=== PATIENT | female | born 1935 | race Caucasian/White ===

== ENCOUNTER → 2017-06-15 | Outpatient (CLI) | payer MEDICARE, OTHER ==
--- NOTE | 2017-06-15 17:28 | DIREP ---
PROCEDURE:XRAY SPINE LUMBAR 2-3 VWS COMPARISON:[facility] and Spiral CT, MR, MRI SPINE LUMBAR W/O, 05/07/2017, 03:09 PM. INDICATIONS:LUMBAR RADICULOPATHY M54.16 TECHNIQUE:AP, lateral, and coned down lateral views of the lumbar spine are provided. FINDINGS: ALIGNMENT:Anterolisthesis of L4 on L5 measuring 8 mm and L5 on S1 measuring 7 mm. VERTEBRAE:No compression fracture. Lower lumbar facet arthropathy. Endplate disc osteophytes most severe at L3-4, L4-5 and L5-S1.. DISK SPACES:Mild disc space narrowing L4-5. Moderate L5-S1 disc space narrowing. SPONDYLOLISTHESIS:As above. SACROILIAC JOINTS:Sacroiliac joint degenerative changes, right greater than left. OTHER:Dorsal column stimulator partially visualized extending superiorly beyond [id number], stimulator enters the spinal column dorsal to L1-2. CONCLUSION: 1. Severe multilevel lumbar spondylosis with anterolisthesis as above. 2. Dorsal column stimulator leads. Dictated by: Yuniel Bright M.D. on 06/15/2017 at 04:24 PM Read in [place]
--- NOTE | 2017-06-15 17:30 | DIREP ---
PROCEDURE:XRAY SPINE THORACIC 3 VWS COMPARISON:[facility] Sp[facility] CT, MR, MRI SPINE THORACIC W/O, 05/07/2017, 03:09 PM. INDICATIONS:THORACIC SPINE PAIN M54.6 TECHNIQUE:AP & lateral views of the thoracic spine are provided. FINDINGS: ALIGNMENT:No measurable listhesis. Accentuated thoracic kyphosis. VERTEBRAE:Multiple compression fractures. Multilevel endplate disc osteophyte complexes. DISK SPACES:Moderate multilevel disc space narrowing. OTHER:Dorsal column stimulator lead with tip terminating at T8. Aortic atherosclerotic calcifications. CONCLUSION: 1. Moderate multilevel thoracic spondylosis with accentuated thoracic kyphosis. 2. No compression fracture or listhesis. 3. Dorsal column stimulator leads. Dictated by: Yuniel Bright M.D. on 06/15/2017 at 04:27 PM Read in [place]
== END | disposition home or self-care (01) ==
LOC: RAD 15:16
PROVIDERS: ATTEND Anesthesiology Pain Medicine
DX: M47.894 Other spondylosis, thoracic region (principal); M54.16 Radiculopathy, lumbar region; M47.896 Other spondylosis, lumbar region
CPT/HCPCS: 72070; 72100

== ENCOUNTER 2019-02-13 11:05 | Inpatient (IN) | payer MEDICARE, OTHER ==
[~2019-02-13] VITALS: Ht 170.2 cm; Wt 84.1 kg
--- NOTE | 2019-02-13 11:08 | NUR ---
ARRIVAL PT ARRIVED AMBULATORY TO ER 3 C/O LEFT ARM AND LEFT SIDE OF FACE "NUMBNESS AND TINGLING" AT 0930. SYMPTOMS HAVE RESOLVED NOW AND PATIENT DOES NOT HAVE ANY COMPLAINTS. NO ACUTE DISTRESS NOTED. PT TRANSFERS SELF TO AND FROM WHEELCHAIR AND TO STRETCHER, POSITIONS SELF ON STRETCHER INDEPENDENTLY AND WITHOUT DIFFICULTY. EDP NOTIFIED OF PT ARRIVAL.
--- NOTE | 2019-02-13 11:13 | ER.PDOC ---
General Chief Complaint: Requesting Medical Care Stated Complaint: NUMB ARM AND SIDE OF FACE Time seen by MD: 11:13 Source: patient Exam Limitations: no limitations History of Present Illness Initial Comments 83 year old female presents with chief complaint of "left-sided numbness of face, arm, and hand." The patient appears stable and not in acute distress. She reports that onset of left-sided numbness of arm and face suddenly began around 9:30 AM after she fed her birds and reached to open the door. She states that this episode lasted for several minutes and then mostly resolved; however she still feels slightly numb in her hand. She has never had this before. She tried to sit down with no relief of the numbness, and she did not take any medication after the episode. She had taken all of her regularly prescribed medications earlier that morning. She denies pain, slurring of speech, blurred vision. Additional symptoms were constipation and cough since yesterday. She has a PMHx of hypertension, depression, and arthritis. Timing/Duration: 1-3 hours Severity: mild New Weakness: LUE, (L) facial Usually: orientedx3 Allergies: Coded Allergies: No Known Allergies (Unverified , 02/13/19) Review of Systems Psychiatric/Neurological: see HPI All Other Systems: Reviewed and Negative Physical Exam General Appearance: alert, no distress HEENT: no apparent trauma, EOM's intact, no nystagmus Neuro/Psych: oriented x3, nml mood/affect Cranial Nerves: forehead involved (left-sided sensory intact) Peripheral Exam: sensation nml Neck: supple, non-tender Respiratory: breath sounds nml CVS: reg rate & rhythm, heart sounds nml Results/Orders Results/Orders Orders - MONE PRIETO MD Cbc With Auto Diff (02/13/19 11:20) Comprehensive Metabolic Panel (02/13/19 11:20) Creatine Kinase (02/13/19 11:20) PT (02/13/19 11:20) Xr Chest 1v (02/13/19 11:20) Partial Thromboplastin Time. (02/13/19 11:20) Troponin I (02/13/19 11:20) Urinalysis (02/13/19 11:20) Ekg-Routine (02/13/19 11:20) Ct Head Wo Contrast (02/13/19 11:20) Rt O2 Per Hour (02/13/19 11:20) Saline Lock (02/13/19 11:20) Vital Signs Date Time Temp Pulse Resp B/P (MAP) Pulse Ox O2 Delivery O2 Flow Rate FiO2 02/13/19 11:22 97.5 77 16 02/13/19 11:22 97.5 77 17 144/67 (92) 94 Room Air 02/13/19 11:08 97.5 77 17 94 Room Air Laboratory Tests Test 02/13/19 11:34 White Blood Count 9.1 10^3/uL (4.5-11.0) Red Blood Count 4.88 10^6/uL (4.00-5.20) Hemoglobin 14.5 g/dL (12.0-15.0) Hematocrit 44.5 % (36.0-46.0) Mean Corpuscular Volume 91.2 fL (78-100) Mean Corpuscular Hemoglobin 29.7 pg (26-34) Mean Corpuscular Hemoglobin Concent 32.6 g/dL (33-37) L Red Cell Distribution Width 15.0 % (11.5-14.5) H Platelet Count 390 10^3/uL (150-400) Mean Platelet Volume 10.4 fL (7.8-11.0) Neutrophils (%) (Auto) 62.9 % (41.0-85.0) Lymphocytes (%) (Auto) 22.3 % (24.0-44.0) L Monocytes (%) (Auto) 11.1 % (5.0-12.0) Neutrophils # (Auto) 5.7 10^3/uL (1.8-7.7) Lymphocytes # (Auto) 2.0 10^3/uL (1.0-4.8) Monocytes # (Auto) 1.0 10^3/uL (0.3-0.8) H Absolute Immature Granulocyte (auto 0.03 10^3 u/L (0-2) Immature Granulocytes % 0.30 % (0.00-0.50) Eosinophils % 2.9 % (0.0-5.0) Basophils % 0.5 % (0.0-0.2) H Basophils # 0.1 10^3/uL (0.0-0.1) Eosinophil Count 0.3 10^3/uL (0.0-0.2) H Prothrombin Time 10.5 SEC (9.4-11.5) Prothrombin Time INR (Non-Therap) 1.0 Activated Partial Thromboplast Time 23.6 SEC (24.67-30.72) Sodium Level 142 mmol/L (132-145) Potassium Level 3.6 mmol/L (3.6-5.2) Chloride Level 104.0 mmol/L (96-109) Carbon Dioxide Level 26.0 mmol/L (20.0-32) Anion Gap 15.6 Blood Urea Nitrogen 25 mg/dL (7-18) H Creatinine 1.06 mg/dL (0.59-1.40) Estimated GFR () 59.9 (>/=60) BUN/Creatinine Ratio 23.0 Glucose Level 135 mg/dL (70-110) H Calcium Level 9.9 mg/dL (8.4-10.5) Total Bilirubin 0.6 mg/dL (0.2-1.0) Aspartate Amino Transferase (AST) 18 U/L (0-35) Alanine Aminotransferase (ALT) 24 U/L (12-78) Alkaline Phosphatase 112 U/L (50-136) Total Creatine Kinase 165 U/L (26-192) Troponin I 0.26 ng/mL (0.00-0.05) H Total Protein 7.8 g/dL (6.4-8.2) Albumin 4.0 g/dL (3.4-5.0) Globulin 3.8 Progress Progress Elevated Troponin, Regan consulted at pt's request. Departure Time of Disposition: 12:50 Disposition: 09 ADMITTED INPATIENT Impression: Primary Impression: TIA (transient ischemic attack) Additional Impression: Elevated troponin I level Condition: Stable Referrals: TUCKER AN MD (PCP) PRIMARY CARE PROVIDER Duration or Time Spent with Pa: 25 Problem Qualifiers MONE PRIETO MD Feb 13, 2019 11:13
[2019-02-13 11:22] VITALS: BP 144/67
--- NOTE | 2019-02-13 11:34 | NUR ---
CT PATIENT TAKEN TO CT VIA WHEELCHAIR.
[2019-02-13 11:41] LABS: BASOPHIL # 0.1 10^3/uL (0.0-0.1); BASOPHIL % 0.5 % (0.0-0.2); EOSINOPHIL # 0.3 10^3/uL (0.0-0.2); EOSINOPHIL % 2.9 % (0.0-5.0); HEMOGLOBIN 14.5 g/dL (12.0-15.0); LYMPHOCYTES % 22.3 % (24.0-44.0); MEAN CELL HGB 29.7 pg (26-34); MEAN CELL HGB CONCENTRATION 32.6 g/dL (33-37); MEAN CORP VOLUME 91.2 fL (78-100); MEAN PLATELET VOLUME 10.4 fL (7.8-11.0); MONOCYTES % 11.1 % (5.0-12.0); NEUTROPHIL # 5.7 10^3/uL (1.8-7.7); NEUTROPHILS % 62.9 % (41.0-85.0); WHITE BLOOD CELL 9.1 10^3/uL (4.5-11.0)
--- NOTE | 2019-02-13 11:48 | DIREP ---
PROCEDURE:CT HEAD OR BRAIN W/O CONTRAST COMPARISON:None. INDICATIONS:Left sided numbness TECHNIQUE:CT images were created without intravenous contrast. The study was reviewed on abdominal, lung, liver and bone windows. FINDINGS: VENTRICLES:Small low-density lesions identified in the basal ganglia may represent small lacunar infarcts, or dilated perivascular spaces. Mild atrophy noted. Moderate white matter changes identified in the centrum semiovale and in the periventricular white matter. CEREBRUM:Normal cerebral morphology with appropriate armenta white matter differentiation. No evidence for unilateral hyperdense MCA sign is seen. No hyperdense venous sinus, effacement of sulci, loss of insular cortex or loss of lenticular nucleus is seen. No acute territorial infarct, bleed or mass lesion is seen. No acute or chronic epidural, subdural subarachnoid hemorrhage is seen. No edema, midline shift or increased intracranial pressure is seen. CEREBELLUM:A low-density lesion identified adjacent to the superior vermis on the right side, as seen on image number 12, series 3 measuring approximately 3 by 1 cm in size may represent a small arachnoid cyst. BRAINSTEM:Negative. BASAL CISTERNS:Negative. HEMORRHAGE:No MASS LESION:No ACUTE INFARCT:No SKULL:Normal. SINUSES:Normal. OTHER:None CONCLUSION:Suspect small lacunar infarcts in the basal ganglia bilaterally. Mild atrophy. Moderate to significant white matter changes in the centrum semiovale and in the periventricular/subcortical white matter which may be secondary to small vessel disease and/or aging. No acute infarct, bleed or mass lesion is seen. Dictated by: Blue Patel MD on 02/13/2019 at 11:43 AM
--- NOTE | 2019-02-13 11:50 | DIREP ---
PROCEDURE:CHEST 1 VIEW COMPARISON:[facility], CR, XRAY SPINE THORACIC 3 VWS, 06/15/2017, 03:37 PM. INDICATIONS:Numbness left side FINDINGS: LUNGS/PLEURA:No significant pulmonary parenchymal abnormalities. No effusions. VASCULATURE:Normal. Unremarkable pulmonary vasculature. CARDIAC:Normal. No cardiac silhouette abnormality or cardiomegaly. MEDIASTINUM:Normal. No visible mass or adenopathy. BONES:Normal. No fracture or visible bony lesion. OTHER:Dorsal column stimulator leads overlie the lower thoracic spinal canal. CONCLUSION:No acute cardiopulmonary abnormalities. Dictated by: Gama Gay M.D. on 02/13/2019 at 11:44 AM
[2019-02-13 12:03] LABS: CALCIUM 9.9 mg/dL (8.4-10.5)
[2019-02-13 12:30] VITALS: BP 151/69
[2019-02-13] MEDS ORDERED: PRAV20TA2 PO (12:36)
[2019-02-13] MEDS ORDERED: ALPR1TAB6 PO (12:36)
[2019-02-13] MEDS ORDERED: CARV3.12 PO (12:36)
[2019-02-13] MEDS ORDERED: HYDR1TAB15 PO (12:36)
[2019-02-13] MEDS ORDERED: TRAZ150T57 PO (12:36)
[2019-02-13] MEDS ORDERED: FURO20TA3 PO (12:36)
[2019-02-13] MEDS ORDERED: POTA10CA PO (12:36)
[2019-02-13] MEDS ORDERED: METO2.5T PO (12:36)
[2019-02-13] MEDS ORDERED: MIRT15TA4 PO (12:36)
--- NOTE | 2019-02-13 12:41 | NUR ---
ROSIO AVELAR HERE TO SEE PT AT THIS TIME.
[2019-02-13] MEDS ORDERED: HYDROCHLOROTHIAZIDE PO STA (12:57)
[2019-02-13] MEDS ORDERED: PLAVIX PO STA (12:57)
[2019-02-13] MEDS ORDERED: ASPIRIN EC PO STA (12:57)
[2019-02-13] MEDS ORDERED: TRANDATE IV PRN (13:00)
[2019-02-13 13:30] VITALS: BP 171/78
--- NOTE | 2019-02-13 13:35 | NUR ---
ROSIO AVELAR WILL LET ER KNOW IF PT WILL BE ADMITTED HERE.
--- NOTE | 2019-02-13 13:40 | PCM.EKG ---
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
--- NOTE | 2019-02-13 14:18 | DIREP ---
PROCEDURE:CT ANGIOGRAPHY HEAD COMPARISON:[facility], CT, CT HEAD BRAIN W/O CONTRAST, 02/13/2019, 11:27 AM. INDICATIONS:cva TECHNIQUE:After obtaining the patient's consent, CT images of the head were obtained with non-ionic contrast, and with multi-planar/3-D imaging to optimize visualization of vascular anatomy. FINDINGS: VASCULATURE:Somewhat suboptimal opacification. Diffuse vascular calcification, worst within the bilateral cavernous carotids. The vasculature is otherwise grossly normal. Near as well dilatation or abnormal vascular anatomy appreciated. VENTRICLES:Normal. CEREBRUM:Periventricular and deep white matter hypoattenuation are present, consistent with chronic small vessel ischemic change. No focal abnormality appreciated. CEREBELLUM:Stable low-density lesion adjacent to the superior right liver mass this is partially fat density may represent a lipoma. BRAINSTEM:Normal. BASAL CISTERNS:Normal. SKULL:Normal. OTHER:Negative. CONCLUSION:1. No acute vascular abnormality. 2. Diffuse atherosclerosis, worst within the cavernous carotids bilaterally. 3. Chronic small vessel ischemic change. 4. Hypoattenuating lesion within the right posterior fossa, with at least partial fat density, which may represent lipoma. Dictated by: Dinesh Avendaño M.D. on 02/13/2019 at 02:11 PM
--- NOTE | 2019-02-13 14:20 | NUR ---
ICU SPOKE TO MANNY CHURCHILL AT THIS TIME. ZHAO STATES IS WAITING TO HEAR FROM DR AVELAR REGARDING PT ADMISSION.
[2019-02-13 14:30] VITALS: BP 149/71
[2019-02-13 14:52] LABS: BILIRUBIN,URINE NEGATIVE (NEGATIVE); UROBILINOGEN,URINE NORMAL (NEGATIVE)
--- NOTE | 2019-02-13 15:08 | NUR ---
ROSIO AVELAR STATES AT THIS TIME THAT HE WILL ADMIT PT TO [facility].
[2019-02-13 15:24] LABS: APPEARANCE,URINE CLEAR (CLEAR); UA COLOR YELLOW (YELLOW)
[2019-02-13 15:30] VITALS: BP 154/73
--- NOTE | 2019-02-13 15:39 | HPH ---
ADMIT DATE: 02/13/2019 CHIEF COMPLAINT: Numbness, tingling left side of the face, arm, it started around 9:30 this morning, I had seen her around close to 12:30, which it has improved. HISTORY OF PRESENT ILLNESS: The patient is an 83-year-old white female who has underlying history of hypertension, hypertensive heart disease and relative bradycardia with nonspecific EKG changes and was seen by me in the office on 07/06/2017 and she had a normal myocardial perfusion scan with no ischemic substrate. At that time, had PVCs with incomplete right bundle branch block and small QRS complexes and she presented to the Emergency Room today with left arm numbness, tingling and slight weakness and she had dropped something on her head, which lasted for several minutes to almost 30-40 minutes and had numbness of the left side of the face, which improved, subsequently denied any chest pain and troponin was mildly elevated at 0.36 and CAT scan showed a small lacunar infarct in the basal ganglia region bilaterally and mild atrophy and microvascular ischemic substrate. Hence, admitted with a diagnosis of possible TIA versus stroke in evolution with initial blood pressure 180/110 and troponin elevation, rule out acute coronary event. ALLERGIES: None known. MEDICATIONS: She has been on Tylenol No. 3 one tablet 2-3 times a day on p.r.n. basis for chronic pain, potassium 10 mEq once a day, lisinopril/hydrochlorothiazide 20/12.5 mg 1 tablet daily, paroxetine 25 mg once a day, amlodipine 5 mg once a day, Protonix 40 mg once a day, ursodiol 300 mg 2 capsules daily. PAST MEDICAL HISTORY: Hypertension and hypertensive heart disease, bradycardia. Normal myocardial perfusion scan in 2018 and she has had back operation with []. SOCIAL HISTORY: []. She quit 40 years ago. No history of any ethanol abuse. FAMILY HISTORY: Her brothers have had stents and father had congestive heart failure and history of cancer in the family. PHYSICAL EXAMINATION: GENERAL: She is alert, awake, oriented. VITAL SIGNS: She weighs 200 pounds and 5 feet 7 inches and a BMI of 32. Initial blood pressure 180/100, subsequently it went down to 130/70, respirations 16-18, pulse rate is about 75. HEENT: Unremarkable. NECK: No JVD. No definite carotid bruits and she has got some weakness on a suggestion of right-sided seventh nerve paresis, but no other cranial nerve abnormalities noted. LUNGS: Clear. HEART: Sounds are normal. ABDOMEN: Soft, nontender, no organomegaly. EXTREMITIES: Distal pulses fairly well felt. NEUROLOGIC: No lateralizing motor deficit could be elicited. Motor function is normal bilaterally. IMAGING STUDIES: Her EKG: Regular sinus rhythm with small QRS complexes, nonspecific ST-T wave changes, R prime in V2 and small lacunar infarct [] both basal ganglia and noted with microvascular ischemic manifestations on CT of the abdomen without contrast. Rest of the labs were all acceptable. IMPRESSION: Transient ischemic attack versus stroke in evolution, labile, uncontrolled hypertension, troponin elevation, rule out coronary event. PLAN: At this time, admit the patient in ICU, was started on aspirin, Plavix, candidate for blood pressure, CTA of the head, echocardiogram, serial EKG, enzymes and further management depend on the clinical course. Yanique Spears MD DR: MANAS/tres JOB# [id number]
--- NOTE | 2019-02-13 16:01 | NUR ---
[facility] PT TO [facility] AT THIS TIME VIA WHEELCHAIR. REPORT TO ADDIS LLOYD RN.
[2019-02-13] MEDS ORDERED: ASPIRIN ONE (16:38)
[2019-02-13] MEDS ORDERED: HYDROCHLOROTHIAZIDE ONE (16:38)
[2019-02-13] MEDS ORDERED: PLAVIX ONE (16:39)
--- NOTE | 2019-02-13 16:45 | PCM.EKG ---
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
[2019-02-13] MEDS: NS 1000ML/KCL 20MEQ 1,000 ML IV SCH (16:47)
[2019-02-13] MEDS: DECADRON IV SCH ×2 (16:47→19:00)
[2019-02-13] MEDS ORDERED: URSO250T3 PO (18:44)
[2019-02-13] MEDS ORDERED: AMLO5TAB10 PO (18:44)
[2019-02-13] MEDS ORDERED: CYAN10002 IJ (18:44)
[2019-02-13] MEDS ORDERED: LISI1TAB20 PO (18:44)
[2019-02-13] MEDS ORDERED: PARO20TA4 PO (18:44)
[2019-02-13] MEDS ORDERED: PANT40TA3 PO (18:44)
[2019-02-13] MEDS ORDERED: CELE200C PO (18:44)
[2019-02-13 19:30] VITALS: BP 142/74
[2019-02-14] VITALS (7 sets, daily range): BP systolic 124–159; BP diastolic 57–81
[2019-02-14] MEDS: DECADRON IV SCH ×2 (00:14→09:45)
[2019-02-14] MEDS: NS 1000ML/KCL 20MEQ 1,000 ML IV SCH ×2 (02:20→04:44)
[2019-02-14] MEDS: NORVASC PO SCH (09:44)
[2019-02-14] MEDS: PROTONIX PO SCH (09:45)
[2019-02-14] MEDS: COZAAR PO SCH (09:45)
[2019-02-14 10:19] LABS: CALCIUM 10.1 mg/dL (8.4-10.5); CARBON DIOXIDE 23.1 mmol/L (20.0-32)
--- NOTE | 2019-02-14 10:45 | NUR ---
DISCHARGE PLAN CM VISITED WITH PATIENT AND DAUGHTER REGARDING D/C PLAN AND GOAL. PATIENT LIVES AT HOME WITH HER SPOUSE, SHE IS INDEPENDENT OF ADLS. SHE HAS A WALKER AND SHOWER CHAIR IN PLACE AND DENIES THE USE OF 02 IN THE HOME. HER PCP IS DR AN IN [place] WHO SHE SAW 1 MONTH AGO. CM ALSO PROVIDED PATIENT WITH A PCP LIST FOR [facility]. HER OUTSOLE CEMENTER MACHINE IS DR AVELAR AND SHE WILL F/U WITH HIM 1-2 WEEKS. SHE IS FINANCIALLY ABLE TO PAY FOR HER MEDICATIONS. CM EDUCATED PT ON OUT PATIENT SERVICES, HOME HEALTH, SWING BED AND CUSTODIAL FACILITY. PATIENT DENIES THE NEED FOR ANY OF THE SERVICES AT THIS TIME. REFUSAL OF SERVICES SIGNED AT THIS TIME. DISCHARGE GOAL IS FOR PATIENT TO D/C HOME WITH SPOUSE AND CONTINUE ROUTINE CARE THERE. CM WILL CONTINUE TO MONITOR NEEDS OF THE PATIENT UNTIL DISCHARGE.
--- NOTE | 2019-02-14 17:37 | DIREP ---
PROCEDURE:US DOPPLER CAROTID BILATERAL COMPARISON:None. INDICATIONS:tia, old stroke TECHNIQUE:Sonographic evaluation of carotid arteries was performed together with grayscale, color-flow, and spectral analysis. FINDINGS: PEAK FLOW VELOCITIES (cm/sec) RIGHT CCA: PROX:86.7 cm/s DIST:65.3 cm/s RIGHT ICA: PROX:155.5 cm/s MID:85.1 cm/s DIST:56.8 cm/s RIGHT ECA:83.0 cm/s RIGHT ICA/CCA:1.8 RIGHT VERTEBRAL:10.7 cm/s; Antegrade IMAGES:There is mild bifurcation plaque. LEFT CCA: PROX:89.3 cm/s DIST:61.0 cm/s LEFT ICA: PROX:46.2 cm/s MID:61.5 cm/s DIST:71.3 cm/s LEFT ECA:70.4 cm/s LEFT ICA/CCA:0.8 LEFT VERTEBRAL:54.8 cm/s; Antegrade IMAGES:There is mild bifurcation plaque. CONCLUSION:Elevated velocity in the proximal right internal carotid artery suggests a 50-69% stenosis. However, the ICA/CCA ratio is within the normal limits. If clinically indicated, consider CT angiogram or catheter directed angiogram Diameter Stenosis (%)ICA Peak Systolic Velocity (cm/s)ICA/CCA RatioNormal<125<2.0<50<125<[id number]>2-470 to near occlusion>230>4J Ultrasound Med 2005; 24:5753-3670 Dictated by: LUCY Physician on 02/14/2019 at 04:37 PM Read in [place] ac
[2019-02-14] MEDS: URSO PO SCH (21:00)
[2019-02-14] MEDS ORDERED: LIPITOR PO SCH (21:00)
--- NOTE | 2019-02-14 22:52 | PNH ---
DATE: 02/14/2019 SUBJECTIVE: The patient came in with TIA manifestations and numbness, tingling of the left hand and facial region with some altered sensorium, which is all improved and her CT scan of the head with CTA was done and she has small vessel microvascular ischemic substrate with diffuse atherosclerosis, worse within the cavernous carotids bilaterally and chronic small vessel ischemic manifestations and posterior fossa hypoattenuation, which may be a lipoma in the same region and she does not have any acute infarct and had mild troponin elevation, which may be related to nonspecific finding, does not show serial changes. EKG was normal. Her last Lexiscan myocardial perfusion scan within a year was normal and her blood pressure is stable, overall improved. Creatinine 1.1. We will do a Carotid Doppler and correlate with head CTA and physical therapy initiated, doing much better. Sensorium is clear. Plavix and aspirin on board and no more TIA manifestations. Continue same therapy and discharge planning by 02/15/2019. Yanique Spears MD DR: MANAS/tres JOB# [id number]
[2019-02-15 04:51] VITALS: BP 140/73
[2019-02-15 08:05] VITALS: BP 146/72
[2019-02-15] MEDS: COZAAR PO SCH (08:54)
[2019-02-15] MEDS: NORVASC PO SCH (08:55)
[2019-02-15] MEDS: PROTONIX PO SCH (08:55)
[2019-02-15] MEDS ORDERED: NORVASC PO SCH (09:00)
[2019-02-15] MEDS ORDERED: PAXIL PO SCH (09:00)
[2019-02-15] MEDS: URSO PO SCH (09:00)
[2019-02-15] MEDS ORDERED: PLAVIX PO SCH (09:00)
[2019-02-15] MEDS ORDERED: ASPIRIN EC PO SCH (09:00)
[2019-02-15] MEDS ORDERED: ATOR20TA PO (10:58)
[2019-02-15] MEDS ORDERED: LOSA50TA2 PO (10:58)
[2019-02-15] MEDS ORDERED: CLOP75TA PO (10:58)
[2019-02-15] MEDS ORDERED: ASPI-655 PO (10:58)
--- NOTE | 2019-02-15 13:31 | DSH ---
DATE OF DISCHARGE: 02/15/2019 FINAL DIAGNOSES: Transient ischemic attack, old stroke, labile hypertension, hypertensive heart disease, mild troponin elevation. Normal myocardial perfusion scan within a year. Bilateral carotid 50-69% plaque noted. Premature ventricular contractions, hypertensive heart disease. Please refer to my history and physical to the point of my impression. HOSPITAL COURSE: The patient is an 83-year-old white female who has underlying history of hypertension with hypertensive heart disease and she came with numbness and tingling in the left arm and face and this lasted all through the night, and she was having on-and-off worsening symptoms and possibility of stroke in evolution versus TIA was considered and at that time, she had an initial blood pressure of 180/110, which normalized later on, and she was given IV steroids. A CT scan of the head without contrast showed white matter ischemia, small lacunar infarct in both basal ganglia and subsequent head CTA showed diffuse atherosclerosis, worse within the cavernous carotid bilaterally and chronic small vessel ischemic manifestations and hypoattenuation in the right posterior fossa, may represent a lipoma. No acute vascular injury was documented and the patient was treated with aspirin and Plavix and blood pressure was controlled. She had a carotid ultrasound, which showed 50-69% plaque in both carotids. She has improved. Neurologically status is stable and she is being dismissed on medications in much improved status on aspirin 81 mg once a day, Lipitor 40 mg once a day, Plavix 75 mg once a day, losartan 50 mg once a day, amlodipine 5 mg once a day, vitamin B12 1000 mcg once a day, Protonix 40 mg once a day, paroxetine 20 mg once a day. She has a history of recurring gallstones and post-cholecystectomy and post-ERCP and common duct stone removal in the past and she is on ursodiol 250 mg 1 capsule twice a day, told not to take Celebrex, which may increase the chance of stroke and myocardial infarction in her especially when she has TIA and carotid plaque bilaterally. Lisinopril HCT was discontinued and she will see Dr. Danii Spears next week for transition of care and reconciliation of medications. Yanique Spears MD DR: MANAS/tres JOB# [id number]
--- NOTE | 2019-02-18 22:40 | PCM.EKG ---
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
--- NOTE | 2019-02-19 05:38 | ECHO ---
DATE OF SERVICE: INDICATIONS: An 83-year-old female with underlying history of hypertension and history of dyspnea and CHF, and assess for LV function. FINDINGS: Mitral valve shows mitral regurgitation with 2.8 meters velocity and reversal of E to A ratio and sclerosis of the aorta with normal aortic valve opening, tricuspid regurgitation with 2.8 meters velocity, with right ventricular systolic pressure of 42 mm. Right ventricle is normal, top normal right atrial size, top normal left atrial size. Left ventricle is normal in size, around 4.55 cm, end diastolic dimension of 2.76 cm, end systolic dimension top normal, posterior wall thickness with good overall contractility; ejection fraction of 51%, increased. Normal end-diastolic volume to 104 mL and IVC is dilated, mild IVC dilatation. No pericardial effusion. Hence, intact LV systolic function, mild top normal biatrial enlargement, mild mitral regurgitation, grade 1 diastolic dysfunction, [id number] pulmonary hypertension with right ventricular systolic pressure of 42 mm. No thrombus in any of the cardiac chambers. Poojamichand MD Regan DR: MANAS/tres JOB# [id number]
== END 2019-02-15 16:50 | disposition home or self-care (01) | DRG 69 ==
LOC: ER 11:05 → MS 15:10
PROVIDERS: ADMIT Specialist; ATTEND Specialist
DX: G45.9 Transient cerebral ischemic attack, unspecified (principal); I45.10 Unspecified right bundle-branch block; K59.00 Constipation, unspecified; Z79.02 Long term (current) use of antithrombotics/antiplatelets; Z79.899 Other long term (current) drug therapy; Z79.82 Long term (current) use of aspirin; Z80.9 Family history of malignant neoplasm, unspecified; Z82.49 Family history of ischemic heart disease and other diseases of the circulatory system; I11.9 Hypertensive heart disease without heart failure; G89.29 Other chronic pain; Z86.73 Personal history of transient ischemic attack (TIA), and cerebral infarction without residual deficits
CPT/HCPCS: 36415; 70450; 70496; 71045; 80053; 80061; 81002; 82550; 83880; 84484; 85025; 85610; 85730; 93005; 93306; 93880; 97161; 99285; G0378; J1100; Q9965

== ENCOUNTER 2019-09-11 15:20 | Observation (INO) | payer MEDICARE, OTHER ==
[2019-09-11] VITALS (7 sets, daily range): BP systolic 135–143; BP diastolic 63–89
[~2019-09-11] VITALS: Ht 170.2 cm; Wt 84.8 kg
[~2019-09-11 15:20] MED LIST: ALPR1TAB6 PO; AMLO5TAB10 PO; ASPI-655 PO; ATOR20TA PO; CARV3.12 PO; CELE200C PO; CLOP75TA PO; CYAN10002 IJ; FURO20TA3 PO; HYDR1TAB15 PO; LISI1TAB20 PO; LOSA50TA2 PO; METO2.5T PO; MIRT15TA4 PO; PANT40TA3 PO; PARO20TA4 PO; POTA10CA PO; PRAV20TA2 PO; TRAZ150T57 PO; URSO250T3 PO
--- NOTE | 2019-09-11 15:55 | ER.PDOC ---
General Chief Complaint: Requesting Medical Care Stated Complaint: CONFUSION,FEMALE Time seen by MD: 15:48 Source: patient (patient is poor historian), family (daughter relates better history) Exam Limitations: clinical condition History of Present Illness Initial Comments Daughter relates patient seems a little confused today--that the last time this happened, she had a UTI. Patient states that earlier she wasn't doing too well, but cannot define what that means. Timing/Duration: this morning Severity/Quality: moderate Allergies: Coded Allergies: No Known Allergies (Unverified , 02/13/19) Home Meds Active Scripts Aspirin (ASPIRIN EC) 81 Mg Tablet.dr, 81 MG PO DAILY for 30 Days Prov:PINA AVELAR MD 02/15/19 Losartan Potassium (COZAAR) 50 Mg Tablet, 50 MG PO DAILY for 30 Days, TAB Prov:PINA AVELAR MD 02/15/19 Atorvastatin 20MG (LIPITOR 20MG) 20 Mg Tablet, 40 MG PO HS for 30 Days, TAB Prov:PINA AVELAR MD 02/15/19 Clopidogrel Bisulfate (CLOPIDOGREL) 75 Mg Tablet, 75 MG PO DAILY for 30 Days, TAB Prov:PINA AVELAR MD 02/15/19 Pantoprazole Sodium (PROTONIX) 40 Mg Tablet.dr, 1 TAB PO DAILY, #30 TAB 5 Refills Prov:PINA AVELAR MD 02/13/19 Amlodipine Besylate (AMLODIPINE BESYLATE) 5 Mg Tablet, 1 TAB PO DAILY, #30 TAB 5 Refills Prov:PINA AVELAR MD 02/13/19 Ursodiol (MARII) 250 Mg Tablet, 1 TAB PO BID for 30 Days, #60 TAB 0 Refills Prov:PINA AVELAR MD 02/13/19 Paroxetine Hcl (PAROXETINE HCL) 20 Mg Tablet, 1 TAB PO DAILY, #30 TAB 5 Refills Prov:PINA AVELAR MD 02/13/19 Cyanocobalamin (Vitamin B-12) (CYANOCOBALAMIN INJECTION) 1,000 Mcg/1 Ml Vial, 1 000 MCG IJ qmonth PRN for vit def for 5 Days, #5 VIAL Prov:PINA AVELAR MD 02/13/19 Past Medical History Medical History: hypertension Surgical History: cholecystectomy, hysterectomy Social History Drug Use: none Review of Systems Constitutional: weakness EENTM: no symptoms reported Respiratory: no symptoms reported Cardiovascular: no symptoms reported Gastrointestinal: no symptoms reported Genitourinary: see HPI Musculoskeletal: no symptoms reported Skin: no symptoms reported Psychiatric/Neurological: other (some confusion today) Physical Exam General Appearance: No Apparent Distress, WD/WN EENT: eyes nml inspection, nml ENT inspection Neck: nml inspection Cardiovascular/Respiratory: Regular Rate, Rhythm, Normal Breath Sounds, No Respiratory Distress Abdomen: Normal Bowel Sounds, Non Tender, Soft Extremities: No Pedal Edema, No Calf Tenderness Neurologic/Psychiatric: Alert, Normal Mood/Affect, Oriented x 3 Skin: Normal Color, Warm/Dry Results/Orders Results/Orders Orders - BELINDA FRANCO DO Urinalysis (09/11/19 15:48) Cbc With Auto Diff (09/11/19 15:52) Comprehensive Metabolic Panel (09/11/19 15:52) Creatine Kinase (09/11/19 15:52) Creatine Kinase Mb (09/11/19 15:52) Troponin I (09/11/19 15:52) Probnp B-Type Flexo Folder Gluer Operator (09/11/19 15:52) PT (09/11/19 15:52) Partial Thromboplastin Time. (09/11/19 15:52) D-Dimer (09/11/19 15:52) Xr Chest 1v (09/11/19 15:52) Ekg-Routine (09/11/19 15:52) Saline Lock (09/11/19 15:52) Influenza A&B (09/11/19 15:58) Strep Screen (09/11/19 15:58) Novel Coronavirus 2019(Sonic) (09/11/19 15:58) Urine Culture (09/11/19 16:07) Enoxaparin Sodium (Lovenox) (09/11/19 16:47) Cta Chest (09/11/19 17:17) Amoxicillin (Amoxil) (09/11/19 17:18) Enoxaparin Sodium (Lovenox) (09/11/19 17:40) Vital Signs Date Time Temp Pulse Resp B/P (MAP) Pulse Ox O2 Delivery O2 Flow Rate FiO2 09/11/19 17:00 68 16 95 Room Air 2.00 6/1/20 15:57 100.1 89 20 Room Air 09/11/19 15:20 100.1 89 16 09/11/19 15:20 100.1 89 16 91 Administered Medications Medications (Trade) Dose Ordered Sig/Khoi Route PRN Reason Start Time Stop Time Status Last Admin Dose Admin Amoxicillin (Amoxil) 500 mg STAT STAT PO 09/11/19 17:18 09/11/19 17:19 UNV 09/11/19 17:45 500 MG Enoxaparin Sodium (Lovenox) 80 mg STAT STAT SQ 09/11/19 16:47 09/11/19 16:49 DC 09/11/19 17:30 80 MG Laboratory Tests Test 09/11/19 16:07 09/11/19 16:15 09/11/19 18:40 White Blood Count 12.0 10^3/uL (4.5-11.0) H Red Blood Count 5.09 10^6/uL (4.00-5.20) Hemoglobin 13.5 g/dL (12.0-15.0) Hematocrit 42.1 % (36.0-46.0) Mean Corpuscular Volume 82.7 fL (78-100) Mean Corpuscular Hemoglobin 26.5 pg (26-34) Mean Corpuscular Hemoglobin Concent 32.1 g/dL (33-36.5) L Red Cell Distribution Width 15.8 % (11.5-14.5) H Platelet Count 324 10^3/uL (150-400) Mean Platelet Volume 9.3 fL (7.8-11.0) Neutrophils (%) (Auto) 84.7 % (41.0-85.0) Lymphocytes (%) (Auto) 5.9 % (24.0-44.0) *L Monocytes (%) (Auto) 8.7 % (5.0-12.0) Neutrophils # (Auto) 10.2 10^3/uL (1.8-7.7) H Lymphocytes # (Auto) 0.71 10^3/uL1 (1.0-4.8) L Monocytes # (Auto) 1.0 10^3/uL (0.3-0.8) H Absolute Immature Granulocyte (auto 0.03 10^3 u/L (0-2) Absolute Eosinophils (auto) 0.0 10^3/uL (0.0-0.2) Immature Granulocytes % 0.20 % (0.00-0.50) Eosinophils % 0.2 % (0.0-5.0) Basophils % 0.3 % (0.0-0.2) H Basophils # 0.0 10^3/uL (0.0-0.1) Prothrombin Time 10.6 SEC (9.3-11.3) Prothrombin Time INR (Non-Therap) 1.0 Activated Partial Thromboplast Time 25.2 SEC (24.67-30.72) D-Dimer 2.00 mg/L (0.19-0.49) *H Urine Collection Type UNKNOWN Urine Color YELLOW (YELLOW) Urine Appearance SLIGHTLY HAZY (CLEAR) H Urine Bilirubin NEGATIVE MG/DL (NEGATIVE) Urine Ketones NEGATIVE (NEGATIVE) Urine Specific [place] 1.0 (1.005-1.035) Urine pH 8 (5.0-6.0) Urine Protein NEGATIVE (NEGATIVE) Urine Urobilinogen NEGATIVE (NEGATIVE) Urine Nitrate NEGATIVE (NEGATIVE) Urine Leukocyte Esterase 25 /uL TRACE (NEGATIVE) Urine Blood 25 1+ (NEGATIVE) H Urine Glucose NORMAL (NEGATIVE) Sodium Level 136 mmol/L (132-145) Potassium Level 3.7 mmol/L (3.6-5.2) Chloride Level 98.0 mmol/L (96-109) Carbon Dioxide Level 26.9 mmol/L (20.0-32) Anion Gap 14.8 Blood Urea Nitrogen 17 mg/dL (7-18) Creatinine 1.10 mg/dL (0.59-1.40) Estimated GFR () 57.3 (>/=60) Est GFR (CKD-EPI)(Non-Afr Thai) 47.3 (>/=60) BUN/Creatinine Ratio 15.0 Glucose Level 120 mg/dL (70-110) H Calcium Level 9.9 mg/dL (8.4-10.5) Total Bilirubin 0.7 mg/dL (0.2-1.0) Aspartate Amino Transferase (AST) 19 U/L (0-35) Alanine Aminotransferase (ALT) 24 U/L (12-78) Alkaline Phosphatase 143 U/L (50-136) H Total Creatine Kinase 73 U/L (26-192) Creatine Kinase MB 0.5 ng/mL (0.5-3.6) Troponin I < 0.02 ng/mL (0.00-0.05) Pro-B-Type Natriuretic Peptide 344 pg/mL (0-450) Total Protein 8.2 g/dL (6.4-8.2) Albumin 3.6 g/dL (3.4-5.0) Globulin 4.6 Influenza Type A Antigen NEGATIVE (NEG) Influenza B Immunofluorescence NEGATIVE (NEG) Group A Streptococcus Screen POSITIVE (NEGATIVE) Differential Total Cells Counted 100 #CELLS Segmented Neutrophils 85 % (31-76) H Lymphocytes 6 % (25-36) L Monocytes 9 % (3-9) Platelet Estimate ADEQUATE Platelet Morphology NORMAL Blood Morphology Comment NORMAL MORPHOLOGY Progress Progress strep +; room air sats persist 87-88% (patient does not have oxygen at home) EKG/XRAY/CT/US EKG Comments: RBBB LPFB CT Comments: no PE; emphysematous changes Consult/PCP Time Consult/PCP Called: 18:47 Consult/PCP: Dr. Mclain Reason/Comments: left message to call #2 Time Consult/PCP Called: 18:57 Consult/PCP: Dr. Mclain Reason/Comments: will admit Departure Time of Disposition: 18:47 Disposition: 09 ADMITTED INPATIENT Impression: Primary Impression: Strep pharyngitis Additional Impressions: Hypoxia Confused COPD exacerbation Condition: Improved Referrals: TUCKER AN MD (PCP) PRIMARY CARE PROVIDER Duration or Time Spent with Pa: 20 min Problem Qualifiers BELINDA FRANCO DO Sep 11, 2019 15:55
--- NOTE | 2019-09-11 16:10 | PCM.EKG ---
[facility] Test Date: 2019-09-11 Test Time: 15:59:57 Pat Name: BREE GARZA Department: Room: 313 Gender: F Bight Maker: EMI : 1935 Requested By: BELINDA VARGAS Order Number: [id number] Reading MD: Teena Vargas Measurements Intervals [place] Rate: 78 P: 258 RI: 180 QRS: 98 QRSD: 170 T: 26 QT: 422 QTc: 481 Interpretive Statements Sinus or ectopic atrial rhythm RBBB and LPFB Compared to ECG 02/13/2019 23:53:51 Ectopic atrial rhythm now present Left posterior fascicular block now present Right bundle-branch block now present Accelerated junctional rhythm no longer present Right-axis deviation no longer present T-wave abnormality no longer present Electronically Signed On 09-13-2019 19:39:42 CDT by Teena Vargas Please click the below link to view image of tracing.
[2019-09-11 16:13] LABS: BASOPHIL % 0.3 % (0.0-0.2); EOSINOPHIL % 0.2 % (0.0-5.0); LYMPHOCYTES # 0.71 10^3/uL1 (1.0-4.8); LYMPHOCYTES % 5.9 % (24.0-44.0); MEAN CORP HGB 26.5 pg (26-34); MONOCYTES % 8.7 % (5.0-12.0); NEUTROPHIL # 10.2 10^3/uL (1.8-7.7); NEUTROPHILS % 84.7 % (41.0-85.0); PLATELET COUNT 324 10^3/uL (150-400); RED CELL DISTRIBUTION WIDTH 15.8 % (11.5-14.5)
[2019-09-11 16:22] LABS: UA COLOR YELLOW (YELLOW)
[2019-09-11 16:23] LABS: BILIRUBIN,URINE NEGATIVE (NEGATIVE)
[2019-09-11 16:24] LABS: UROBILINOGEN,URINE NEGATIVE (NEGATIVE)
[2019-09-11 16:25] LABS: APPEARANCE,URINE SLIGHTLY HAZY (CLEAR)
--- NOTE | 2019-09-11 16:44 | DIREP ---
PROCEDURE:CHEST 1 VIEW COMPARISON:[facility], CR, XRAY CHEST SINGLE VW, 02/13/2019, 11:24 AM. INDICATIONS:dyspnea FINDINGS: LUNGS/PLEURA:No significant pulmonary parenchymal abnormalities. No effusions. VASCULATURE:Normal. Unremarkable pulmonary vasculature. CARDIAC:Normal. No cardiac silhouette abnormality or cardiomegaly. MEDIASTINUM:Normal. No visible mass or adenopathy. BONES:A dorsal column stimulator is seen midline of the mid thoracic spine. Degenerative changes are seen in the right shoulder. OTHER:Negative. CONCLUSION:No acute cardiopulmonary disease is seen or significant interval change. Dictated by: Royer Tinsley M.D. on 09/11/2019 at 04:42 PM
[2019-09-11] MEDS ORDERED: LOVENOX SQ STA (16:47)
[2019-09-11 17:06] LABS: ALANINE AMINOTRANSFERASE(ML) 24 U/L (12-78); ALKALINE PHOSPHATASE 143 U/L (50-136); ASPARTATE AMINO TRANSFERASE 19 U/L (0-35); CALCIUM 9.9 mg/dL (8.4-10.5); CARBON DIOXIDE 26.9 mmol/L (20.0-32); GLUCOSE 120 mg/dL (70-110)
[2019-09-11] MEDS ORDERED: AMOXIL PO STA (17:18)
[2019-09-11] MEDS ORDERED: LOVENOX SQ ONE (17:40)
--- NOTE | 2019-09-11 18:21 | DIREP ---
PROCEDURE:CTA CHEST COMPARISON:[facility], CR, XRAY CHEST SINGLE VW, 02/13/2019, 11:24 AM. [facility], CR, XRAY CHEST SINGLE VW, 09/11/2019, 04:22 PM. INDICATIONS:PE TECHNIQUE:Post contrast axial images through the chest with multiplanar MIP/3D reconstructions. FINDINGS: PULMONARY ARTERIES:No filling defects identified. LUNGS/PLEURA:Mild biapical emphysematous change. Linear scarring/atelectasis at the left lung base. No focal consolidation, pleural effusion, or pneumothorax. CARDIAC:Heart size within normal limits. No pericardial effusion. THYROID:Within normal limits, to the extent visualized. THORACIC AORTA:Aortic atherosclerotic calcification. No evidence of aneurysmal dilatation. MEDIASTINUM:No mass or adenopathy. CHEST WALL:No mass or axillary adenopathy. UPPER ABDOMEN:Possible left adrenal nodule, incompletely imaged. Trace pneumobilia. Visualized upper abdominal structures are otherwise grossly unremarkable. BONES:Degenerative change without evidence of acute osseus abnormality. Dorsal column stimulator leads terminate overlying the T7 vertebral level. OTHER:No additional findings. CONCLUSION: 1. No evidence of pulmonary embolism. 2. Mild biapical emphysematous change. No focal consolidation, pleural effusion, or pneumothorax. 3. Additional findings as described. Dictated by: Remy Patel MD on 09/11/2019 at 06:10 PM
[2019-09-11 18:40] LABS: LYMPHOCYTE 6 % (25-36); MONOCYTE 9 % (3-9); SEGMENTED NEUTROPHILS 85 % (31-76)
--- NOTE | 2019-09-11 19:51 | NUR ---
DAUGHTER DR. FRANCO ON PHONE UPDATING DAUGHTER AT THIS TIME.
--- NOTE | 2019-09-11 20:25 | NUR ---
HOME MEDS PT UNSURE IF SHE STILL TAKES PROTONIX. ALL OTHER HOME MEDS RECONCILED.
--- NOTE | 2019-09-11 20:32 | NUR ---
MEDSURG/ REPORT PT TAKEN TO [facility] VIA WHEELCHAIR AT THIS TIME. REPORT GIVEN TO ROCIO VEGA.
--- NOTE | 2019-09-11 20:40 | NUR ---
REPORT PATIENT ARRIVED ON FLOOR A VIA WHEEL CHAIR. RECEIVED REPORT FORM ER. ASSUMED CARE AT THIS TIME
--- NOTE | 2019-09-11 21:40 | PCM.HP ---
HISTORY & PHYSICAL HISTORY & PHYSICAL DATE: September 11, 2019 Patient is placed under observation to [facility] ADMITTING DIAGNOSES: Altered mental status with hypoxia, history of hypertension and hypertensive heart disease CHIEF COMPLAINT: She is a bit confused HISTORY OF PRESENT ILLNESS: 84-year-old female who is brought to the ER for increasing confusion and altered mental status to her family. No fever has been reported and no sick contacts have been reported and no travel has been reported. She does not know why she was in the ER and had no complaints in the ER. She denied any shortness of breath. She does recall having some URI symptoms and cough weeks ago but is feeling better from that. She denies any falls or syncope. She denies any weakness to one side of her body. PAST MEDICAL HISTORY: Hypertension, hypertensive heart disease, history of bradycardia, TIA PAST SURGICAL HISTORY: Back surgery ALLERGIES: No known drug allergies MEDICATIONS: I have reviewed her home medication list in [employer] [facility] SOCIAL HISTORY: She was a former smoker, no drugs, no alcohol FAMILY HISTORY: There is heart disease in the family with stents and cancer in the family PHYSICAL EXAMINATION: VITAL SIGNS: Temperature 100.1, pulse 62, respirations 16, O2 sat 91% initially but he did drop down to 87% on room air HEENT: Oropharynx is clear, no maxillary sinus tenderness NECK: Supple, no JVD HEART: S1 and S2 audible, no tachycardia LUNGS: Adequate aeration bilaterally, no tachypnea ABDOMEN: Bowel sounds present, soft abdomen EXTREMITIES: No cyanosis, no clubbing, no petechia/purpura LABORATORY DATA: WBC 12.0, hemoglobin 13.5, platelet count 324, coags normal, d- dimer 2.0, UA with 1+ blood, influenza AMB negative, group A strep positive, chemistry panel looks okay with a creatinine of 1.1, LFTs normal with an alk phos of 143, troponin I less than 0.02, proBNP 344 Chest x-ray: No acute cardiopulmonary findings noted CTA chest: No PE, mild biapical emphysematous changes noted but no acute intrathoracic abnormalities noted ASSESSMENT: Shortness of breath with altered mental status and hypoxia PLAN: IV steroids and oxygen have been started on her and I will add an incentive spirometry and try to wean her O2 overnight. She has been COVID tested and is in isolation currently. EV REYNOSO MD Sep 11, 2019 21:40
[2019-09-11] MEDS: AMOXIL PO SCH (22:59)
[2019-09-11] MEDS: VENTOLIN HFA IH SCH (22:59)
[2019-09-11] MEDS: SOLU-MEDROL IV SCH (22:59)
[2019-09-12 05:49] LABS: BASOPHIL % 0.5 % (0.0-0.2); LYMPHOCYTES % 10.3 % (24.0-44.0); MEAN CORP HGB 26.6 pg (26-34); MONOCYTES # 0.1 10^3/uL (0.3-0.8); MONOCYTES % 1.8 % (5.0-12.0); NEUTROPHIL # 6.8 10^3/uL (1.8-7.7); NEUTROPHILS % 87.1 % (41.0-85.0); PLATELET COUNT 327 10^3/uL (150-400); RED CELL DISTRIBUTION WIDTH 16.1 % (11.5-14.5)
[2019-09-12] MEDS: AMOXIL PO SCH ×2 (06:05→14:00)
[2019-09-12] MEDS: SOLU-MEDROL IV SCH ×2 (06:05→14:00)
[2019-09-12 06:07] LABS: CALCIUM 9.8 mg/dL (8.4-10.5)
[2019-09-12 08:08] VITALS: BP 144/85
[2019-09-12] MEDS: VENTOLIN HFA IH SCH ×3 (08:19→17:00)
[2019-09-12] MEDS ORDERED: NORVASC PO SCH (09:00)
[2019-09-12] MEDS ORDERED: PROTONIX PO SCH (09:00)
[2019-09-12] MEDS ORDERED: PAXIL PO SCH (09:00)
[2019-09-12] MEDS ORDERED: COZAAR PO SCH (09:00)
[2019-09-12] MEDS ORDERED: ASPIRIN EC PO SCH (09:00)
[2019-09-12] MEDS ORDERED: URSO PO SCH (09:00)
[2019-09-12] MEDS ORDERED: PLAVIX PO SCH (09:00)
--- NOTE | 2019-09-12 09:25 | NUR ---
DISCHARGE PLAN CASE MANAGEMENT VISITED WITH PATIENT CONCERNING DISCHARGE PLAN AND NEEDS VIA INTERCOM DUE TO PUI STATUS.. LIVES AT HOME WITH SPOUSE. INDEPENDENT OF ADLS. HAS DME INCLUDING WALKER AND TOILET RISER. NEEDS HOME OXYGEN. CM OBTAINED ORDER FOR HOME OXYGEN AND FAXED TO [facility]. CM SPOKE WITH STEPAN BURNETT OF [facility] CONCERNING THE ORDER. CM EDUCATED PT ON HOME HEALTH, OUTPATIENT SERVICES, AND SNF/SBU. DENIES NEEDS FOR SERVICES AT THIS TIME. CHOICE LETTER FOR [facility] SIGNED VIA VERBAL SIGNATURE UTILIZING INTERCOM. PCP-JAIRON AVELAR. DISCHARGE PLAN IS TO DISCHARGE HOME WITH SPOUSE AND CONTINUE SELF CARE. CM WILL CONTINUE TO FOLLOW FOR DISCHARGE NEEDS.
[2019-09-12 12:09] VITALS: BP 152/83
[2019-09-12] MEDS ORDERED: AMOX500C PO (13:49)
--- NOTE | 2019-09-12 14:11 | NUR ---
DISCHARGE CLINICAL D/C CLINICAL FAXED TO Megan AN DO @ [phone].
[2019-09-12] MEDS ORDERED: NYST15OI TP (14:14)
--- NOTE | 2019-09-12 14:20 | PRM.DC ---
DISCHARGE SUMMARY DISCHARGE SUMMARY DATE OF ADMISSION: September 11, 2019 DATE OF DISCHARGE: September 12, 2019 ADMITTING DIAGNOSES: Hypoxia with altered mental status and history of hypertension hypertensive heart disease DISCHARGE DIAGNOSES: Hypoxia with atelectasis/COPD and hypertension DISCHARGE DISPOSITION: Patient is discharged to home DISCHARGE CONDITION: Stable HOSPITAL COURSE: 84-year-old female who was found to have some decreasing little of consciousness and hypoxia in the ER. Scan of the chest showed some atelectasis with some apical emphysema but no acute findings noted. She was placed on 2 L of oxygen and weaned down to 1 L this morning with O2 sats ranging anywhere between 93 to 97%. She has really no complaints at this time other than the rash that looks candidal in nature and nystatin was started for her. She was Charis tested in the ER and she was placed under isolation in the hospital but she feels fine right now and would like to go home. DIET: Resume home diet ACTIVITY: As tolerated OTHER: Quarantine at home until culture result is back We are setting up home O2 at 1 L a minute MEDICATIONS: 1. Resume home medications 2. Nystatin ointment twice a day to her area FOLLOW-UP: Follow-up with her PCP, Dr. Danii Spears MD in 1 week EV REYNOSO MD Sep 12, 2019 14:19
--- NOTE | 2019-09-12 16:00 | NUR ---
DISCHARGE EDUCATION PROVIDED TO PATIENT. DEMONSTRATED HOW TO USE ROTECH PROVIDED OXYGEN TANK. NEW MEDICATION PRESCRIPTIONS REVIEWED. PROVIDED MATERIAL REVIEWED. IV IN L AC REMOVED. CATHETER TIP INTACT.
--- NOTE | 2019-09-12 16:35 | NUR ---
DISCHARGE TRANSPORTED VIA WHEELCHAIR ON 1L/NC TO PRIVATE AUTO DRIVEN BY DAUGHTER.
[2019-09-12 16:56] VITALS: BP 152/83
[2019-09-12] MEDS ORDERED: LIPITOR PO SCH (21:00)
== END 2019-09-12 16:35 | disposition home or self-care (01) ==
LOC: ER 15:20 → UNDOADMOB 19:02 → MS 19:02 → INTOOBSV 19:02 → MS 19:02
PROVIDERS: ADMIT Pediatrics; ATTEND Pediatrics
DX: J44.1 Chronic obstructive pulmonary disease with (acute) exacerbation (principal); Z20.828 Contact with and (suspected) exposure to other viral communicable diseases; R41.82 Altered mental status, unspecified; I11.9 Hypertensive heart disease without heart failure; J02.0 Streptococcal pharyngitis; J98.11 Atelectasis; Z86.73 Personal history of transient ischemic attack (TIA), and cerebral infarction without residual deficits; Z87.891 Personal history of nicotine dependence; Z90.710 Acquired absence of both cervix and uterus; Z90.49 Acquired absence of other specified parts of digestive tract; Z79.82 Long term (current) use of aspirin; Z79.899 Other long term (current) drug therapy
CPT/HCPCS: 36415 ×2; 71045; 71275; 80053 ×2; 81002; 82550; 82553; 83880; 84484; 85025 ×2; 85379; 85610; 85730; 87077; 87086; 87186; 87635; 87804 ×2; 87880; 93005; 96372; 96374; 96376; 99285; G0378 ×20; J1650; J2930 ×3; J7611; Q9965

== ENCOUNTER 2019-09-14 22:31 | Emergency (ER) | payer MEDICARE, OTHER ==
[~2019-09-14] VITALS: Ht 170.2 cm; Wt 84.4 kg
[~2019-09-14 22:31] MED LIST changes: +AMOX500C PO; +NYST15OI TP
[2019-09-14] MEDS ORDERED: NS 1000ML 1,000 ML IV STA (23:13)
--- NOTE | 2019-09-14 23:24 | PCM.EKG ---
[facility] Test Date: 2019-09-14 Test Time: 23:11:45 Pat Name: BREE GARZA Department: [id number] Room: Gender: F Trim Sawyer: TG : 1935 Requested By: VIVIENNE ZHAO Order Number: [id number] Reading MD: Measurements Intervals [place] Rate: 65 P: 263 CT: 205 QRS: 144 QRSD: 163 T: 20 QT: 437 QTc: 455 Interpretive Statements Sinus or ectopic atrial rhythm Consider dextrocardia Compared to ECG 09/11/2019 15:59:57 Left posterior fascicular block no longer present Right bundle-branch block no longer present Please click the below link to view image of tracing.
--- NOTE | 2019-09-14 23:28 | ER.PDOC ---
General Chief Complaint: Requesting Medical Care Stated Complaint: LOW BLOOD PRESSURE TRAVEL OUT OF US: No Time seen by MD: 23:25 Source: patient Exam Limitations: no limitations History of Present Illness Initial Comments Low blood pressure at home, no chest pain or SOB. She fell at home getting up from toilet pod and did not hit her head and so daughter decided to check her blood pressure and found out that it was low. Severity: moderate Associated Symptoms: denies symptoms Allergies: Coded Allergies: No Known Allergies (Unverified , 02/13/19) Home Meds Active Scripts Nystatin (NYSTATIN) 15 Gm Oint...g., 15 GM TP BID, #1 TUBE 1 Refill Prov:EV REYNOSO MD 09/12/19 Amoxicillin (AMOXICILLIN) 500 Mg Capsule, 500 MG PO Q8HR, #21 CAPSULE 0 Refills Prov:EV REYNOSO MD 09/12/19 Aspirin (ASPIRIN EC) 81 Mg Tablet.dr, 81 MG PO DAILY for 30 Days Prov:PINA AVELAR MD 02/15/19 Losartan Potassium (COZAAR) 50 Mg Tablet, 50 MG PO DAILY for 30 Days, TAB Prov:PINA AVELAR MD 02/15/19 Atorvastatin 20MG (LIPITOR 20MG) 20 Mg Tablet, 40 MG PO HS for 30 Days, TAB Prov:PINA AVELAR MD 02/15/19 Clopidogrel Bisulfate (CLOPIDOGREL) 75 Mg Tablet, 75 MG PO DAILY for 30 Days, TAB Prov:PINA AVELAR MD 02/15/19 Pantoprazole Sodium (PROTONIX) 40 Mg Tablet.dr, 1 TAB PO DAILY, #30 TAB 5 Refills Prov:PINA AVELAR MD 02/13/19 Amlodipine Besylate (AMLODIPINE BESYLATE) 5 Mg Tablet, 1 TAB PO DAILY, #30 TAB 5 Refills Prov:PINA AVELAR MD 02/13/19 Ursodiol (MARII) 250 Mg Tablet, 1 TAB PO BID for 30 Days, #60 TAB 0 Refills Prov:PINA AVELAR MD 02/13/19 Paroxetine Hcl (PAROXETINE HCL) 20 Mg Tablet, 1 TAB PO DAILY, #30 TAB 5 Refills Prov:PINA AVELAR MD 02/13/19 Cyanocobalamin (Vitamin B-12) (CYANOCOBALAMIN INJECTION) 1,000 Mcg/1 Ml Vial, 1000 MCG IJ qmonth PRN for vit def for 5 Days, #5 VIAL Prov:PINA AVELAR MD 02/13/19 Past Medical History Medical History: CVA/TIA/stroke, high cholesterol, hypertension Surgical History: cholecystectomy, hysterectomy Social History Drug Use: none Review of Systems Constitutional: no symptoms reported Respiratory: no symptoms reported Cardiovascular: see HPI Gastrointestinal: no symptoms reported Genitourinary: no symptoms reported All Other Systems: Reviewed and Negative Physical Exam General Appearance: No Apparent Distress, WD/WN Neck: Non-Tender, Full Range of Motion, Supple, Normal Inspection Respiratory: chest non-tender, lungs clear, normal breath sounds, no respiratory distress, no accessory muscle use CVS: reg rate & rhythm, no murmur, no gallop, pulses nml, nml capillary refill Gastrointestinal: Normal Bowel Sounds, No Organomegaly, No Pulsatile Mass, Non Tender Back: Normal Inspection, No CVA Tenderness Extremities: Normal Range of Motion Neurologic/Psychiatric: accessioner II-XII NML as Tested Skin: Normal Color Results/Orders Results/Orders Orders - VIVIENNE ZHAO MD Cbc With Auto Diff (09/14/19 23:13) Comprehensive Metabolic Panel (09/14/19 23:13) Creatine Kinase (09/14/19 23:13) Creatine Kinase Mb (09/14/19 23:13) Troponin I (09/14/19 23:13) Ekg-Routine (09/14/19 23:13) 0.9 % Sodium Chloride (Ns 1000ml) (09/14/19 23:13) Vital Signs Date Time Temp Pulse Resp B/P (MAP) Pulse Ox O2 Delivery O2 Flow Rate FiO2 09/14/19 23:57 98.4 70 18 95 09/14/19 23:56 98.4 70 18 09/14/19 23:50 98.4 70 18 95 09/12/19 10:29 66 Administered Medications Medications (Trade) Dose Ordered Sig/Khoi Route PRN Reason Start Time Stop Time Status Last Admin Dose Admin Sodium Chloride 1,000 ml @ 1,200 mls/hr Q50M STAT IV 09/14/19 23:13 09/15/19 00:02 DC 09/14/19 23:49 1,200 MLS/HR Laboratory Tests Test 09/14/19 23:21 White Blood Count 10.9 10^3/uL (4.5-11.0) Red Blood Count 5.04 10^6/uL (4.00-5.20) Hemoglobin 13.2 g/dL (12.0-15.0) Hematocrit 42.3 % (36.0-46.0) Mean Corpuscular Volume 83.9 fL (78-100) Mean Corpuscular Hemoglobin 26.2 pg (26-34) Mean Corpuscular Hemoglobin Concent 31.2 g/dL (33-36.5) L Red Cell Distribution Width 16.3 % (11.5-14.5) H Platelet Count 375 10^3/uL (150-400) Mean Platelet Volume 9.6 fL (7.8-11.0) Neutrophils (%) (Auto) 72.8 % (41.0-85.0) Lymphocytes (%) (Auto) 13.8 % (24.0-44.0) L Monocytes (%) (Auto) 11.9 % (5.0-12.0) Neutrophils # (Auto) 7.9 10^3/uL (1.8-7.7) H Lymphocytes # (Auto) 1.51 10^3/uL1 (1.0-4.8) Monocytes # (Auto) 1.3 10^3/uL (0.3-0.8) H Absolute Immature Granulocyte (auto 0.06 10^3 u/L (0-2) Absolute Eosinophils (auto) 0.1 10^3/uL (0.0-0.2) Immature Granulocytes % 0.50 % (0.00-0.50) Eosinophils % 0.5 % (0.0-5.0) Basophils % 0.5 % (0.0-0.2) H Basophils # 0.1 10^3/uL (0.0-0.1) Sodium Level 137 mmol/L (132-145) Potassium Level 4.0 mmol/L (3.6-5.2) Chloride Level 100.0 mmol/L (96-109) Carbon Dioxide Level 27.5 mmol/L (20.0-32) Anion Gap 13.5 Blood Urea Nitrogen 38 mg/dL (7-18) H Creatinine 1.88 mg/dL (0.59-1.40) H Estimated GFR () 30.8 (>/=60) Est GFR (CKD-EPI)(Non-Afr [place]ian) 25.5 (>/=60) BUN/Creatinine Ratio 20.0 Glucose Level 128 mg/dL (70-110) H Calcium Level 9.2 mg/dL (8.4-10.5) Total Bilirubin 0.4 mg/dL (0.2-1.0) Aspartate Amino Transferase (AST) 16 U/L (0-35) Alanine Aminotransferase (ALT) 23 U/L (12-78) Alkaline Phosphatase 129 U/L (50-136) Total Creatine Kinase 69 U/L (26-192) Creatine Kinase MB 1.7 ng/mL (0.5-3.6) Troponin I < 0.02 ng/mL (0.00-0.05) Total Protein 7.3 g/dL (6.4-8.2) Albumin 3.4 g/dL (3.4-5.0) Globulin 3.9 Progress Progress Patient is feeling better and refused to be observed overnight. Her blood pressure is back to normal. EKG/XRAY/CT/US EKG: NSR Departure Time of Disposition: 00:35 Disposition: 01 HOME, SELF-CARE Impression: Primary Impression: Acute kidney failure, unspecified Additional Impression: Dehydration Condition: Improved Referrals: TUCKER AN MD (PCP) PRIMARY CARE PROVIDER Additional Instructions: Push fluids F/U with your PCP in 2-3 days Return to ED if worsening or concerns Duration or Time Spent with Pa: 60 min Problem Qualifiers Primary Impression: Acute kidney failure, unspecified Acute renal failure type: unspecified Qualified Codes: N17.9 - Acute kidney failure, unspecified VIVIENNE ZHAO MD Sep 14, 2019 23:27
[2019-09-14 23:32] LABS: BASOPHIL # 0.1 10^3/uL (0.0-0.1); BASOPHIL % 0.5 % (0.0-0.2); EOSINOPHIL # 0.1 10^3/uL (0.0-0.2); EOSINOPHIL % 0.5 % (0.0-5.0); LYMPHOCYTES # 1.51 10^3/uL1 (1.0-4.8); LYMPHOCYTES % 13.8 % (24.0-44.0); MEAN CORP HGB 26.2 pg (26-34); MONOCYTES # 1.3 10^3/uL (0.3-0.8); MONOCYTES % 11.9 % (5.0-12.0); NEUTROPHIL # 7.9 10^3/uL (1.8-7.7); NEUTROPHILS % 72.8 % (41.0-85.0); PLATELET COUNT 375 10^3/uL (150-400); RED CELL DISTRIBUTION WIDTH 16.3 % (11.5-14.5)
[2019-09-14 23:50] VITALS: BP 97/52
[2019-09-14 23:53] LABS: ALANINE AMINOTRANSFERASE(ML) 23 U/L (12-78); ALKALINE PHOSPHATASE 129 U/L (50-136); ASPARTATE AMINO TRANSFERASE 16 U/L (0-35); CALCIUM 9.2 mg/dL (8.4-10.5); CARBON DIOXIDE 27.5 mmol/L (20.0-32); GLUCOSE 128 mg/dL (70-110)
[2019-09-14 23:56] VITALS: BP 97/52
[2019-09-14 23:57] VITALS: BP 97/52
[2019-09-15 00:44] VITALS: BP 139/78
== END 2019-09-15 00:48 | disposition home or self-care (01) ==
LOC: ER 22:31 → EEVIPCON 22:31 → ER 09-15 00:48
DX: E86.0 Dehydration (principal); N17.9 Acute kidney failure, unspecified; I95.9 Hypotension, unspecified; E78.00 Pure hypercholesterolemia, unspecified; I10 Essential (primary) hypertension; Z86.73 Personal history of transient ischemic attack (TIA), and cerebral infarction without residual deficits; Z90.49 Acquired absence of other specified parts of digestive tract; Z90.710 Acquired absence of both cervix and uterus; Z79.899 Other long term (current) drug therapy; Z79.82 Long term (current) use of aspirin
CPT/HCPCS: 36415; 80053; 82550; 82553; 84484; 85025; 93005; 96360; 99284

== ENCOUNTER → 2019-11-20 | Outpatient (CLI) | payer MEDICARE, OTHER ==
[~2019-11-20] MED LIST changes: -ASPI-655 PO; +ASPI-929 PO
== END | disposition home or self-care (01) ==
LOC: LAB 16:44
PROVIDERS: ATTEND Specialist
DX: N39.0 Urinary tract infection, site not specified (principal)
CPT/HCPCS: 87077; 87086; 87186

== ENCOUNTER 2020-01-07 16:05 | Inpatient (IN) | payer MEDICARE, OTHER ==
[~2020-01-07] VITALS: Ht 170.2 cm; Wt 85.7 kg
[2020-01-07] VITALS (7 sets, daily range): BP systolic 116–147; BP diastolic 45–68
[~2020-01-07 16:05] MED LIST changes: +AMLO-169 PO; -AMLO5TAB10 PO
--- NOTE | 2020-01-07 16:54 | PCM.EKG ---
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
--- NOTE | 2020-01-07 16:59 | ER.PDOC ---
General Chief Complaint: Cough/Congestion Stated Complaint: COUGH,LBP,DIAHRREA Time seen by MD: 16:40 Source: patient Exam Limitations: no limitations History of Present Illness Initial Comments Pt brought in by daughter for cough x 3 weeks. Pt has had some diarrhea (loose stools) for a few days as well. Has possible COVID exposure, but pt cannot say exactly how long ago. Oxygen noted to be low upon arrival. Pt reports some dyspnea, not worse with laying flat or moving around. No chest pain, no fever. Timing/Duration: gradual Associated Symptoms: cough, productive cough Prior symptoms/Treatment: No Similar symptoms previous, No Recenly Seen, No Treated by Doctor Allergies: Coded Allergies: No Known Allergies (Unverified , 02/13/19) Home Meds Active Scripts Nystatin (NYSTATIN) 15 Gm Oint...g., 15 GM TP BID, #1 TUBE 1 Refill Prov:EV REYNOSO MD 09/12/19 Amoxicillin (AMOXICILLIN) 500 Mg Capsule, 500 MG PO Q8HR, #21 CAPSULE 0 Refills Prov:EV REYNOSO MD 09/12/19 Aspirin (ASPIRIN EC) 81 Mg Tablet.dr, 81 MG PO DAILY for 30 Days Prov:PINA AVELAR MD 02/15/19 Losartan Potassium (COZAAR) 50 Mg Tablet, 50 MG PO DAILY for 30 Days, TAB Prov:PINA AVELAR MD 02/15/19 Atorvastatin 20MG (LIPITOR 20MG) 20 Mg Tablet, 40 MG PO HS for 30 Days, TAB Prov:PINA AVELAR MD 02/15/19 Clopidogrel Bisulfate (CLOPIDOGREL) 75 Mg Tablet, 75 MG PO DAILY for 30 Days, TAB Prov:PINA AVELAR MD 02/15/19 Pantoprazole Sodium (PROTONIX) 40 Mg Tablet.dr, 1 TAB PO DAILY, #30 TAB 5 Refills Prov:PINA AVELAR MD 02/13/19 Amlodipine Besylate (AMLODIPINE BESYLATE) 5 Mg Tablet, 1 TAB PO DAILY, #30 TAB 5 Refills Prov:PINA AVELAR MD 02/13/19 Ursodiol (MARII) 250 Mg Tablet, 1 TAB PO BID for 30 Days, #60 TAB 0 Refills Prov:PINA AVELAR MD 02/13/19 Paroxetine Hcl (PAROXETINE HCL) 20 Mg Tablet, 1 TAB PO DAILY, #30 TAB 5 Refills Prov:PINA AVELAR MD 02/13/19 Cyanocobalamin (Vitamin B-12) (CYANOCOBALAMIN INJECTION) 1,000 Mcg/1 Ml Vial, 1000 MCG IJ qmonth PRN for vit def for 5 Days, #5 VIAL Prov:PINA AVELAR MD 02/13/19 Constitutional: other (fatigue) EENTM: no symptoms reported Respiratory: see HPI, cough, shortness of breath; denies stridor, denies wheezing Cardiovascular: no symptoms reported; denies chest pain, denies edema, denies irregular heart rate, denies palpitations, denies syncope Gastrointestinal: see HPI; denies abdominal pain, denies constipated; diarrhea; denies nausea, denies vomiting Genitourinary: no symptoms reported Musculoskeletal: no symptoms reported Skin: no symptoms reported Psychiatric/Neurological: no symptoms reported Hematologic/Lymphatic: no symptoms reported All Other Systems: Reviewed and Negative Past Medical History Medical History: COPD, hypertension Surgical History: hysterectomy Family History Significant Family History: no pertinent family hx Social History Alcohol Use: none Drug Use: none Physical Exam General Appearance: alert, no distress Nose: nose nml Throat: pharynx nml Neck: nml inspection, supple Respiratory: no resp.distress, breath sounds nml Abdomen: non-tender CVS: reg rate & rhythm, heart sounds nml Skin: color nml, no rash, warm/dry Extremities: non-tender, nml ROM, no pedal edema (no calf tenderness) NEURO/PSYCH: oriented x 3, motor nml, sensation nml Results/Orders Results/Orders Orders - SHARON BERNAL DO Cbc With Auto Diff (01/07/20 16:50) Comprehensive Metabolic Panel (01/07/20 16:50) Creatine Kinase (01/07/20 16:50) Creatine Kinase Mb (01/07/20 16:50) Probnp B-Type Inspector Soldering (01/07/20 16:50) Troponin I (01/07/20 16:50) D-Dimer (01/07/20 16:50) Arterial Blood Gas (01/07/20 16:50) Blood Culture (01/07/20 16:50) Xr Chest 1v (01/07/20 16:50) PT (01/07/20 16:50) Partial Thromboplastin Time. (01/07/20 16:50) Ekg-Routine (01/07/20 16:50) Novel Coronavirus 2019(Dshs) (01/07/20 16:50) Influenza A&B (01/07/20 16:50) Lactic Acid(Ml) (01/07/20 16:50) Procalcitonin (01/07/20 16:50) Cta Chest (01/07/20 17:53) Vital Signs Date Time Temp Pulse Resp B/P (MAP) Pulse Ox O2 Delivery O2 Flow Rate FiO2 01/07/20 17:52 98.2 66 18 117/54 (75) 91 Nasal Canula 4.00 01/07/20 16:47 98.2 68 20 116/50 (72) 83 Room Air 01/07/20 16:30 98.2 68 20 01/07/20 16:30 98.2 68 18 Laboratory Tests Test 01/07/20 17:00 01/07/20 17:05 Blood Gas Sample Site RT RADIAL ARTERY Blood pH 7.422 (7.350-7.450) Blood Gas PCO2 35.2 mmHg (35.0-45.0) Blood Gas PO2 49.6 mmHg (80.0-100.0) L Blood Gas HCO3 22.4 mmol/L (22.0-26.0) Blood Gas Base Excess -1.4 mmol/L (-2.0-2.0) Gerard Test POSITIVE Arterial Blood Oxygen Saturation 86.0 % (94.0-97.00) L Deoxyhemoglobin 13.8 % (0.0-5.0) H Carboxyhemoglobin 1.1 % (0.0-3.9) Methemoglobin 0.3 % (0.00-5.0) Total Hemoglobin 14.3 % (12.0-17.8) Total Oxygen Concentration 17.0 % (13.5-17.5) Blood Gas Temperature 37 Oxygen Delivery Method NASAL CANNULA FiO2 28 % (20-101) Total Carbon Dioxide 23.5 mmol/L (23-27) White Blood Count 5.9 10^3/uL (4.5-11.0) Red Blood Count 5.02 10^6/uL (4.00-5.20) Hemoglobin 13.7 g/dL (12.0-15.0) Hematocrit 42.6 % (36.0-46.0) Mean Corpuscular Volume 84.9 fL (78-100) Mean Corpuscular Hemoglobin 27.3 pg (26-34) Mean Corpuscular Hemoglobin Concent 32.2 g/dL (33-36.5) L Red Cell Distribution Width 14.4 % (11.5-14.5) Platelet Count 270 10^3/uL (150-400) Mean Platelet Volume 9.8 fL (7.8-11.0) Neutrophils (%) (Auto) 72.4 % (41.0-85.0) Lymphocytes (%) (Auto) 16.4 % (24.0-44.0) L Monocytes (%) (Auto) 10.8 % (5.0-12.0) Neutrophils # (Auto) 4.3 10^3/uL (1.8-7.7) Lymphocytes # (Auto) 0.97 10^3/uL1 (1.0-4.8) L Monocytes # (Auto) 0.6 10^3/uL (0.3-0.8) Absolute Immature Granulocyte (auto 0.01 10^3 u/L (0-2) Absolute Eosinophils (auto) 0.0 10^3/uL (0.0-0.2) Immature Granulocytes % 0.20 % (0.00-0.50) Eosinophils % 0.0 % (0.0-5.0) Basophils % 0.2 % (0.0-0.2) Basophils # 0.0 10^3/uL (0.0-0.1) Prothrombin Time 11.0 SEC (9.3-11.3) Prothrombin Time INR (Non-Therap) 1.1 Activated Partial Thromboplast Time 27.9 SEC (24.67-30.72) D-Dimer 1.06 mg/L (0.19-0.49) *H Sodium Level 132 mmol/L (132-145) Potassium Level 3.4 mmol/L (3.6-5.2) L Chloride Level 97.0 mmol/L (96-109) Carbon Dioxide Level 24.3 mmol/L (20.0-32) Anion Gap 14.1 Blood Urea Nitrogen 17 mg/dL (7-18) Creatinine 1.25 mg/dL (0.59-1.40) Estimated GFR () 49.4 (>/=60) Est GFR (CKD-EPI)(Non-Afr Burundian) 40.8 (>/=60) BUN/Creatinine Ratio 13.0 Glucose Level 93 mg/dL (70-110) Lactic Acid Level 1.4 mmol/L (0.5-1.9) Calcium Level 9.0 mg/dL (8.4-10.5) Total Bilirubin 0.4 mg/dL (0.2-1.0) Aspartate Amino Transferase (AST) 38 U/L (0-35) H Alanine Aminotransferase (ALT) 31 U/L (12-78) Alkaline Phosphatase 104 U/L (50-136) Total Creatine Kinase 204 U/L (26-192) H Creatine Kinase MB 1.1 ng/mL (0.5-3.6) Troponin I < 0.02 ng/mL (0.00-0.05) Pro-B-Type Natriuretic Peptide 118 pg/mL (0-450) Total Protein 7.7 g/dL (6.4-8.2) Albumin 3.5 g/dL (3.4-5.0) Globulin 4.2 Albumin/Globulin Ratio 0.833 Procalcitonin < 0.05 ng/mL (0.05-0.5) L Influenza Type A Antigen NEGATIVE (NEG) Influenza B Immunofluorescence NEGATIVE (NEG) Progress Progress Spoke with Dr. Adhikari, will admit to ICU ER DEPART Departure Time of Disposition: 19:00 Disposition: 09 ADMITTED INPATIENT Impression: Primary Impression: Viral pneumonia Additional Impression: Acute hypoxemic respiratory failure Condition: Stable Referrals: TUCKER AN MD (PCP) PRIMARY CARE PROVIDER Duration or Time Spent with Pa: 45 Critical Care Note Total Time (mins): 60 Comments O2 titration, ordering and interpreting labs, consultation with admitting provider. Problem Qualifiers SHARON BERNAL DO Jan 07, 2020 16:59
[2020-01-07 17:10] LABS: ABG PCO2 35.2 mmHg (35.0-45.0); ABG PH 7.422 (7.350-7.450); BE(B) -1.4 mmol/L (-2.0-2.0); HCO3act 22.4 mmol/L (22.0-26.0); pO2 49.6 mmHg (80.0-100.0)
--- NOTE | 2020-01-07 17:13 | DIREP ---
PROCEDURE:CHEST 1 VIEW COMPARISON:[facility], CT, CTA CHEST, 09/11/2019, 05:39 PM. INDICATIONS:cough, dyspnea FINDINGS: LUNGS/PLEURA:No significant pulmonary parenchymal abnormalities. No effusions. VASCULATURE:Normal. Unremarkable pulmonary vasculature. CARDIAC:Mild cardiomegaly. MEDIASTINUM:Atheromatous calcifications of the aortic arch BONES:Normal. No fracture or visible bony lesion. OTHER:Dorsal column stimulator CONCLUSION:Mild cardiomegaly. No active cardiopulmonary disease process Dictated by: Imelda Multani M.D. on 01/07/2020 at 05:11 PM
[2020-01-07 17:21] LABS: BASOPHIL % 0.2 % (0.0-0.2); LYMPHOCYTES # 0.97 10^3/uL1 (1.0-4.8); LYMPHOCYTES % 16.4 % (24.0-44.0); MEAN CORP HGB 27.3 pg (26-34); MONOCYTES # 0.6 10^3/uL (0.3-0.8); MONOCYTES % 10.8 % (5.0-12.0); NEUTROPHIL # 4.3 10^3/uL (1.8-7.7); NEUTROPHILS % 72.4 % (41.0-85.0); PLATELET COUNT 270 10^3/uL (150-400); RED CELL DISTRIBUTION WIDTH 14.4 % (11.5-14.5)
[2020-01-07 17:51] LABS: ALANINE AMINOTRANSFERASE(ML) 31 U/L (12-78); ALKALINE PHOSPHATASE 104 U/L (50-136); ASPARTATE AMINO TRANSFERASE 38 U/L (0-35); CARBON DIOXIDE 24.3 mmol/L (20.0-32); GLUCOSE 93 mg/dL (70-110)
--- NOTE | 2020-01-07 18:54 | DIREP ---
PROCEDURE:CT PULMONARY ANGIOGRAM TECHNIQUE:Following the intravenous administration of contrast material, axial cuts were obtained through the chest. Multiplanar / 3-D reconstructions are provided. Suboptimal pulmonary arterial contrast opacification was achieved. The images were viewed at lung and soft tissue settings. COMPARISON:[facility], CT, CTA CHEST, 09/11/2019, 05:39 PM. INDICATIONS:elevated d-dimer, suspect PE FINDINGS: PULMONARY ARTERIES:Patent. LUNGS:Trace bibasilar dependent patchy airspace opacities. Trace patchy ground-glass opacities seen in the bilateral upper lobes. CARDIAC:Normal size heart and normal pulmonary vascularity. THYROID:Normal. THORACIC AORTA:There is no CT evidence of a dissection. Atherosclerotic calcifications are noted. MEDIASTINUM:Normal. PLEURA:Normal. BONES:Mild degenerative changes in the spine. Spinal stimulator leads are noted. One of the leads is along the posterior right chest wall. OTHER:No additional findings. CONCLUSION: 1. Trace patchy ground-glass opacities bilaterally that the proper clinical setting may represent viral infection such as COVID-19. 2. No evidence of pulmonary embolism. There is suboptimal opacification of pulmonary arterial system which does limit sensitivity for detecting emboli. 3. Coronary artery and aortic atherosclerotic vascular calcifications. 4. Additional findings described above. Dictated by: Ender Art MD on 01/07/2020 at 06:49 PM
[2020-01-07] MEDS ORDERED: DECADRON IV STA (19:02)
[2020-01-07] MEDS ORDERED: DECADRON ONE (19:21)
--- NOTE | 2020-01-07 20:39 | NUR ---
ARRIVAL TO ICU 8 TRANSPORTED VIA WHEELCHAIR ON 4LPM VIA NASAL CANNULA. REPORT GIVEN BY HAILE CHAN. PATIENT ASSISTED TO BED. HOOKED TO TELEMETRY. SEE TEACHING RECORD. CALL LIGHT AND TABLE IN REACH. NO SHORTNESS OF BREATH OR ANY RESPIRATORY DISTRESS NOTED. INITIAL SPO2 96% WITH O2. NOTIFIED PATIENT RE: ISOLATION AND GROUPING OF CARE. AMENABLE. DENIED ANY CONCERNS AT THIS TIME.
--- NOTE | 2020-01-07 20:40 | NUR ---
ICU PT TAKEN TO ICU 8 VIA WHEELCHAIR AT THIS TIME. REPORT GIVEN TO ROCIO REDDING.
--- NOTE | 2020-01-07 21:26 | NUR ---
TELEPHONE CALL TO DR PARSONS NOTIFIED THAT PATIENT IS IN THE UNIT. STATED PATIENT IS COMFORTABLE IN BED, 91% IN 4LPM VIA NASAL CANNULA. NO NEW ORDERS RECEIVED AT THIS TIME. STATED SHE WILL COME IN THE UNIT TO CHECK PATIENT BEFORE PUTTING ORDERS.
[2020-01-08] VITALS (61 sets, daily range): BP systolic 94–200; BP diastolic 34–108
--- NOTE | 2020-01-08 00:50 | NUR ---
DR PARSONS AT BEDSIDE ASSESSED PATIENT. NOTED MARKED CONFUSION. PATIENT UNABLE TO STATED HER NAME OR WHERE SHE'S FROM. UNABLE TO ANSWER ANY QUESTIONS. PATIENT HAS DIFFICULTY COMPREHENDING SIMPLE WORDS AT THIS TIME.
[2020-01-08] MEDS ORDERED: KCL 20MEQ/100ML 200 ML IV SCH (01:00)
[2020-01-08] MEDS ORDERED: VENTOLIN IH SCH (01:00)
[2020-01-08] MEDS ORDERED: TYLENOL PO PRN (01:00)
[2020-01-08] MEDS ORDERED: ZOFRAN IV PRN (01:00)
[2020-01-08] MEDS ORDERED: ATROVENT IH PRN (01:00)
[2020-01-08] MEDS: ROCEPHIN 1,000 MG in NS 100ML 100 ML IV SCH (01:00)
[2020-01-08] MEDS ORDERED: MORPHINE SULFATE IV PRN (01:00)
[2020-01-08] MEDS ORDERED: VENTOLIN IH PRN (01:00)
[2020-01-08] MEDS ORDERED: NS 500ML 500 ML IV ONE (01:06)
[2020-01-08] MEDS ORDERED: NS 100ML 100 ML IV ONE (01:06)
[2020-01-08] MEDS ORDERED: ROCEPHIN ONE (01:07)
[2020-01-08] MEDS ORDERED: NS 250ML 250 ML IV ONE (01:07)
[2020-01-08] MEDS: NS 1000ML 1,000 ML IV SCH ×2 (01:30→19:37)
[2020-01-08] MEDS ORDERED: COMBIVENT RESPIMAT 20-100 MCG IH ONE (01:35)
--- NOTE | 2020-01-08 01:41 | PCM.HP ---
HISTORY & PHYSICAL HISTORY & PHYSICAL DATE OF ADMISSION: 01/07/20 TIME: 11:50pm CHIEF COMPLAINT: SOB and cough HISTORY OF PRESENT ILLNESS: Ms Anand is an 84yo WF who presents to the [facility] ED complaining of worsening SOB and cough (productive of greenish colored sputum) for the past 3 weeks. Since patient is currently confused, the SOI had to be obtained primarily from my discussion with the ED physician, Nursing Staff, and previous old medical records. Patient reportedly was forced to come to the ED today by her Daughter for worsening SOB, cough, congestion, diarrhea, confusion and "acting goofy". There is also some mention of possible COVID-19 exposure, but it is not exactly clear. Upon arrival to the ED, patient was found to be in respiratory distress with an O2 sat 75-80% on Room Air per the ED physician. A CTA chest was done (due to elevated D-dimer) and showed no PE, but there was some BL ground glass opacities suggestive of COVID PNA. Patient was therefore admitted to the ICU for close observation and further treatment. PAST MEDICAL HISTORY: HTN, CAD, TIA, COPD, HLD, and B12 Deficiency PAST SURGICAL HISTORY: Back Surgery with Dorsal Column Stimulator Placement, and Hysterectomy SOCIAL HISTORY: Pt reportedly was a former smoker, but does not drink or use recreational drugs. FAMILY HISTORY: There reportedly is a Hx of Heart Disease and Cancer in the family. ALLERGIES: NKDA HOME MEDICATIONS: See Home Med Rec REVIEW OF SYSTEMS: See HPI above. All other ROS negative including constitutional, eyes, ears, nose, throat, respiratory, cardiovascular, gastrointestinal, genitourinary, musculoskeletal, skin, neurological, psychiatric, and lymphatic. PHYSICAL EXAMINATION: VITAL SIGNS: T 98.6, HR 64, RR 15, BP 129/50, O2 sat 96% 4L NC GENERAL: Resting comfortably in NAD. She is acutely ill-appearing. No family or friends present at bedside. HEENT: NC/AT. PERRLA. EOMI. MM dry. Neck is supple. LUNGS: Diminished BS BL. No sign of respiratory distress or cyanosis at this time. HEART: Normal S1S2. No murmurs, rubs, gallops, or thrills. ABDOMEN: Soft. ND. NTTP. No rebound or guarding. Normal BS throughout. Obese. EXTREMITIES: No pitting edema. Weak, but moving all 4 extremities equally and completely off the bed. NEUROLOGIC: Confused. Unable to properly assess due to pt's inability to follow commands. LABORATORY DATA: Reviewed and significant for K 3.4, Lact 1.4, AST 38, CK 204, TPN <0.02, PCT <0.05, D-dimer 1.03, ABG 7.42 / 35 / 49.6, Flu A/B neg IMAGING STUDIES: 1) CXR: Mild cardiomegaly. No active cardiopulmonary disease process. 2) CTA chest: Trace patchy ground glass opacities BL suggestive of COVID PNA. No PE. ASSESSMENT / PLAN: 1) Acute Encephalopathy: Pt's baseline Mental Status is unknown. Will check a CT head to further evaluate and monitor closely. 2) Acute Hypoxemic Respiratory Failure: Improving with Br Tx's, O2 PRN, and Steroids. Continue aggressive RT protocol. 3) COVID-19 Exposure: Will check patient for COVID, but given her clinical presentation, will go ahead and start Tx with Remdesivir and Decadron. 4) BL Pneumonia: Will start Rocephin and Azithromycin, and follow up on the Sputum Cx results. Pt is not currently septic. 5) Volume Depletion: Pt clinically appears to be dehydrated. Will start IVFs. 6) Diarrhea: Will check stool studies. No obvious abdominal pain noted on exam, and no reports of nausea or vomiting. Will monitor closely. 7) HypoKalemia: Will replace PRN. 8) COPD: Pt is not currently wheezing. Will continue Br Tx's, O2 PRN, and steroids. 9) HTN: Currently stable on home meds. Monitor. 10) Generalized Weakness: Will request a PT evaluation once pt is more stable. 11) GI and DVT prophylaxis: Will continue home Protonix and start Heparin. >65min of critical care time was spent with pt at bedside as well as in coordination of care and admission orders. SHEREE PARSONS MD Jan 08, 2020 01:41
--- NOTE | 2020-01-08 01:54 | NUR ---
BS 131 PATIENT COOL TO TOUCH. TEMP 96.5 ORAL. PROVIDED EXTRA BLANKET. CHECKED BLOOD SUGAR, NOTED 131 MG/DL.
[2020-01-08] MEDS: ZITHROMAX 500 MG in NS 250ML 250 ML IV SCH (02:00)
[2020-01-08] MEDS ORDERED: ATROVENT IH SCH (04:00)
[2020-01-08] MEDS ORDERED: HEPARIN ONE (04:24)
[2020-01-08] MEDS: COMBIVENT RESPIMAT 20-100 MCG IH SCH ×5 (05:00→21:00)
[2020-01-08 05:04] LABS: APPEARANCE,URINE HAZY (CLEAR); BILIRUBIN,URINE NEGATIVE (NEGATIVE); UA COLOR YELLOW (YELLOW); UROBILINOGEN,URINE NORMAL (NEGATIVE)
[2020-01-08] MEDS: HEPARIN SQ SCH ×3 (05:16→21:26)
[2020-01-08 06:23] LABS: BASOPHIL % 0.3 % (0.0-0.2); LYMPHOCYTES # 0.71 10^3/uL1 (1.0-4.8); LYMPHOCYTES % 19.1 % (24.0-44.0); MEAN CORP HGB 27.7 pg (26-34); MONOCYTES # 0.1 10^3/uL (0.3-0.8); MONOCYTES % 3.8 % (5.0-12.0); NEUTROPHIL # 2.8 10^3/uL (1.8-7.7); NEUTROPHILS % 76.5 % (41.0-85.0); PLATELET COUNT 256 10^3/uL (150-400); RED CELL DISTRIBUTION WIDTH 14.1 % (11.5-14.5)
[2020-01-08 07:01] LABS: CALCIUM 8.9 mg/dL (8.4-10.5); CARBON DIOXIDE 22.7 mmol/L (20.0-32)
[2020-01-08] MEDS ORDERED: VITAMIN C ONE (07:42)
[2020-01-08] MEDS ORDERED: ASPIRIN ONE (07:42)
[2020-01-08] MEDS ORDERED: MUCINEX PO ONE (07:42)
[2020-01-08] MEDS ORDERED: COZAAR ONE (07:42)
[2020-01-08] MEDS ORDERED: NORVASC ONE (07:43)
[2020-01-08] MEDS ORDERED: PROTONIX PO ONE (07:43)
[2020-01-08] MEDS ORDERED: DECADRON ONE (07:43)
[2020-01-08] MEDS ORDERED: PLAVIX ONE (07:44)
[2020-01-08] MEDS: BACID PO SCH ×3 (08:00→19:35)
--- NOTE | 2020-01-08 08:45 | DIREP ---
PROCEDURE:CT HEAD WITHOUT CONTRAST TECHNIQUE:Axial cuts were obtained through the head, without intravenous contrast material. The images were viewed at brain and bone settings. Sagittal and coronal reconstructions are provided. COMPARISON:[facility], CT, CT HEAD BRAIN W/O CONTRAST, 02/13/2019, 11:27 AM. INDICATIONS:Encephalopathy FINDINGS: VENTRICLES:Normal. CEREBRUM:Mild cortical atrophy, frontal lobe predominant, and moderate periventricular leukoaraiosis. Stable bilateral basal ganglia lacunar infarcts or prominent perivascular spaces. No intracranial hemorrhage, large territory infarct or space-occupying mass. 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 No calcifications. BRAINSTEM:Normal. SKULL:Normal. SINUSES:Clear. OTHER:None CONCLUSION:No acute intracranial abnormality or significant change. Dictated by: Nkechi Chang MD on 01/08/2020 at 08:36 AM
[2020-01-08] MEDS: COZAAR PO SCH (09:00)
[2020-01-08] MEDS: NORVASC PO SCH (09:00)
[2020-01-08] MEDS: ASPIRIN EC PO SCH (09:00)
[2020-01-08] MEDS: DECADRON IV SCH (09:00)
[2020-01-08] MEDS: PROTONIX PO SCH (09:00)
[2020-01-08] MEDS: MUCINEX PO SCH ×2 (09:00→21:26)
[2020-01-08] MEDS: ZINC SULFATE PO SCH (09:00)
[2020-01-08] MEDS ORDERED: REMDESIVIR IV ONE (09:00)
[2020-01-08] MEDS ORDERED: NS IV ONE (09:00)
[2020-01-08] MEDS: PLAVIX PO SCH (09:00)
[2020-01-08] MEDS: VITAMIN C PO SCH (09:00)
--- NOTE | 2020-01-08 09:15 | NUR ---
DISCHARGE PLAN CM VISITED WITH PATIENT VIA INTERCOM REGARDING D/C PLAN. PT LIVES AT HOME WITH HER SPOUSE. SHE SAYS SHE IS VERY IND OF ADLS AND HAS A SC, WALKER AND 02 AT HOME. HER O2 IS SERVICED BY [employer] AND SHE USE 2L/NC PRN. CM EDUCATED ON HH AND PATIENT DENIES NEED A THIS TIME. CM NOTIFIED ZHAO CHAN OF CONVERSATION BETWEEN CM AND PT. DISCHARGE GOAL IS FOR PATIENT TO D/C BACK HOME TO ROUTINE CARE WITH HER SPOUSE. CM WILL MONITOR NEEDS UNTIL D/C
[2020-01-08] MEDS ORDERED: LIPITOR PO SCH (21:00)
--- NOTE | 2020-01-08 21:40 | PRM.PN ---
PROGRESS NOTE S/O/A/P DATE: 01/08/20 TIME: 10:20am SUBJECTIVE: More awake and alert this morning! Able to answer some questions appropriately. Says she feels better with less SOB and cough (although still productive of greenish colored sputum). Happy that her appetite is back and says she ate all of her breakfast. Remains afebrile overnight. OBJECTIVE: PHYSICAL EXAMINATION: VITAL SIGNS: T 98.1, HR 70, RR 20, BP 134/67, O2 sat 92% 3.5L NC GENERAL: Resting comfortably in NAD. She is acutely ill-appearing. No family or friends present at bedside. HEENT: NC/AT. PERRLA. EOMI. MM dry. Neck is supple. LUNGS: Diminished BS BL. No sign of respiratory distress or cyanosis at this time. HEART: Normal S1S2. No murmurs, rubs, gallops, or thrills. ABDOMEN: Soft. ND. NTTP. No rebound or guarding. Normal BS throughout. Obese. EXTREMITIES: No pitting edema. Weak, but moving all 4 extremities equally and completely off the bed. NEUROLOGIC: Still confused but improved today. Sensation intact throughout. Gait was not assessed at this time. LABORATORY DATA: Reviewed and significant for WBC 3.7, Gluc 154, AST 36, CRP 8.47, B12 1018, PCT <0.05, Bld Cx neg x1d IMAGING STUDIES: 1) CT head: No acute intracranial abnormalities. ASSESSMENT / PLAN: 1) Acute Encephalopathy: Pt's baseline Mental Status is unknown, but she is definitely improved today. Will continue to monitor. 2) Acute Hypoxemic Respiratory Failure: Improving with Br Tx's, O2 PRN, and Steroids. Continue aggressive RT protocol. 3) COVID-19 Exposure: Pt states that her [id number]-lwr was just diagnosed with COVID-19 last week. Although pt's COVID test is still pending, she has been started on Tx with Remdesivir and Decadron based upon her clinical presentation. 4) BL Pneumonia: Will continue Rocephin and Azithromycin, and follow up on the Sputum Cx results. 5) UTI (POA): Will continue Rocephin and follow up on the Ur Cx results. 6) Volume Depletion: Improving today with IVFs. 7) Diarrhea: Stool studies still pending. 8) COPD: Pt is not currently wheezing. Will continue Br Tx's, O2 PRN, and steroids. 9) HTN: Currently stable on her home meds. Monitor for now. 10) Generalized Weakness: Will request a PT evaluation once pt is more stable. 11) GI and DVT prophylaxis: Will continue Protonix and Heparin. SHEREE PARSONS MD Jan 08, 2020 21:40
[2020-01-09] VITALS (80 sets, daily range): BP systolic 108–168; BP diastolic 47–99
[2020-01-09] MEDS: ZITHROMAX 500 MG in NS 250ML 250 ML IV SCH (00:30)
[2020-01-09] MEDS: ROCEPHIN 1,000 MG in NS 100ML 100 ML IV SCH (00:30)
[2020-01-09] MEDS: COMBIVENT RESPIMAT 20-100 MCG IH SCH ×6 (00:50→20:34)
[2020-01-09] MEDS: NS 1000ML 1,000 ML IV SCH ×2 (04:10→17:46)
[2020-01-09 04:48] LABS: BASOPHIL % 0.1 % (0.0-0.2); LYMPHOCYTES # 1.18 10^3/uL1 (1.0-4.8); LYMPHOCYTES % 14.1 % (24.0-44.0); MEAN CORP HGB 27.9 pg (26-34); MONOCYTES # 0.7 10^3/uL (0.3-0.8); MONOCYTES % 8.8 % (5.0-12.0); NEUTROPHIL # 6.4 10^3/uL (1.8-7.7); NEUTROPHILS % 76.8 % (41.0-85.0); PLATELET COUNT 268 10^3/uL (150-400); RED CELL DISTRIBUTION WIDTH 14.2 % (11.5-14.5)
[2020-01-09 05:07] LABS: CALCIUM 8.6 mg/dL (8.4-10.5); CARBON DIOXIDE 26.1 mmol/L (20.0-32)
[2020-01-09] MEDS: HEPARIN SQ SCH ×3 (05:28→21:30)
[2020-01-09] MEDS: BACID PO SCH ×3 (08:41→17:46)
[2020-01-09] MEDS: ASPIRIN EC PO SCH (08:41)
[2020-01-09] MEDS: PROTONIX PO SCH (08:41)
[2020-01-09] MEDS: VITAMIN C PO SCH (08:41)
[2020-01-09] MEDS: NORVASC PO SCH (08:41)
[2020-01-09] MEDS: ZINC SULFATE PO SCH (08:41)
[2020-01-09] MEDS: MUCINEX PO SCH ×2 (08:41→20:34)
[2020-01-09] MEDS: PLAVIX PO SCH (08:41)
[2020-01-09] MEDS: DECADRON IV SCH (08:42)
[2020-01-09] MEDS: COZAAR PO SCH (08:42)
--- NOTE | 2020-01-09 09:36 | NUR ---
NOT SCANNING PT OR MEDS DUE TO PUI
[2020-01-09] MEDS: REMDESIVIR IV SCH (09:55)
[2020-01-09] MEDS: NS IV SCH (09:55)
--- NOTE | 2020-01-09 20:26 | NUR ---
COVID RESULT RECEIVED TELEPHONE CALL FROM THE LAB, SPOKE TO BENITA. RECEIVED THAT PATIENT IS POSITIVE FOR COVID. NOTIFIED DR ARTEAGA AND PRIMARY CARE NURSE, Blanka GASPAR RN.
--- NOTE | 2020-01-09 20:29 | PRM.PN ---
Subjective Subjective Date: Jan 09, 2020 Time: 08:00 Subjective Patient seen and examined says she is doing much better but still requiring oxygen. Denies fever or chills. VTE VTE Risk Total Score: >5 VTE Risk Score VTE Risk: Score 0-1 = Low Risk (Aggressive mobilization; early ambulation; no VTE prophylaxis required) Score 2: Moderate Risk (Intermittent/Pneumatic Compression Device OR Lovenox/Heparin/Coumadin) Score 3-4: High Risk (Intermittent/Pneumatic Compression Device AND Lovenox/Heparin/Coumadin) Score > or =5: Highest Risk (Intermittent/Pneumatic Compression Device AND Lovenox/Heparin/Coumadin) Antico:Hep/LMWH/Coum/Xarelto: No Review of Systems Constitutional: No: Fever, Chills, Sweats, Weakness, Malaise Eyes: No: Pain, Vision change, Conjunctivae inflammation, Eyelid inflammation, Redness ENT: No: Ear pain, Ear discharge, Nose pain, Nose discharge, Nose congestion, Mouth pain, Mouth swelling, Throat pain, Throat swelling Respiratory: Shortness of breath; No: Cough, Dry, SOB with excertion, Wheezing, Hemoptysis, Pleuritic Pain, Sputum, Wheezing Cardiovascular: No: Chest Pain, Palpitations, Orthopnea, Paroxysmal Noc. Dyspnea, Edema, Lt Headedness Gastrointestinal: Other; No: Nausea, Vomiting, Abdominal Pain, Diarrhea, Constipation, Melena, Hematochezia Genitourinary: No Dysuria, No Frequency, No Incontinence, No Hematuria, No Retention Musculoskeletal: No: neck pain, shoulder pain, arm pain, back pain, hand pain, leg pain, foot pain Skin: No: Rash, Lesions, Jaundice, Bruising Neurological: No: Weakness, Numbness, Incoordination, Change in speech, Confusion, Seizures Allergies: Coded Allergies: No Known Allergies (Unverified , 02/13/19) Scheduled Amlodipine Besylate (Amlodipine Besylate), 1 TAB PO DAILY Amoxicillin (Amoxicillin), 500 MG PO Q8HR Aspirin (Aspirin Ec), 81 MG PO DAILY Atorvastatin 20MG (Lipitor 20MG), 40 MG PO HS Clopidogrel Bisulfate (Clopidogrel), 75 MG PO DAILY Losartan Potassium (Cozaar), 50 MG PO DAILY Nystatin (Nystatin), 15 GM TP BID Pantoprazole Sodium (Protonix), 1 TAB PO DAILY Paroxetine Hcl (Paroxetine Hcl), 1 TAB PO DAILY Ursodiol (Karen), 1 TAB PO BID Scheduled PRN Cyanocobalamin (Vitamin B-12) (Cyanocobalamin Injection), 1,000 MCG IJ qmonth PRN for vit def Objective Vitals and I/O Vital Sign - Last 24 Hours 01/08/20 01/08/20 01/08/20 01/08/20 20:30 20:45 21:00 21:15 Pulse 59 59 60 60 Resp 24 14 23 19 B/P (MAP) 125/58 (80) 124/43 (70) 115/58 (77) 130/62 (84) Pulse Ox 93 94 92 92 01/08/20 01/08/20 01/08/20 01/08/20 21:30 21:45 23:00 23:15 Pulse 55 56 59 57 Resp 30 24 B/P (MAP) 127/60 (82) 138/108 (118) 134/67 (89) 133/69 (90) Pulse Ox 95 96 93 92 01/08/20 01/08/20 01/09/20 01/09/20 23:30 23:45 00:00 00:00 Pulse 57 56 57 Resp 22 22 B/P (MAP) 131/69 (89) 140/62 (88) 139/59 (85) Pulse Ox 93 92 95 O2 Delivery Nasal Cannula O2 Flow Rate 4.00 01/09/20 01/09/20 01/09/20 01/09/20 00:15 00:30 00:45 01:00 Pulse 59 59 61 56 Resp 25 22 B/P (MAP) 132/62 (85) 127/65 (85) Pulse Ox 91 91 92 96 01/09/20 01/09/20 01/09/20 01/09/20 01:00 01:15 01:30 01:45 Pulse 57 58 61 58 Resp 23 B/P (MAP) 153/66 (95) 108/69 (82) 128/47 (74) Pulse Ox 92 92 91 92 01/09/20 01/09/20 01/09/20 01/09/20 02:00 02:15 02:30 02:45 Pulse 61 61 60 59 Resp 24 26 B/P (MAP) 139/64 (89) 128/63 (84) 130/61 (84) 141/58 (85) Pulse Ox 93 93 94 91 01/09/20 01/09/20 01/09/20 01/09/20 03:00 03:15 03:30 03:45 Pulse 59 59 56 57 Resp 22 B/P (MAP) 138/58 (84) 131/64 (86) 131/60 (83) 133/62 (85) Pulse Ox 95 92 92 92 01/09/20 01/09/20 01/09/20 01/09/20 04:00 04:15 04:30 04:45 Pulse 57 56 56 57 Resp 22 B/P (MAP) 139/61 (87) 140/65 (90) 134/62 (86) 144/65 (91) Pulse Ox 92 92 89 89 01/09/20 01/09/20 01/09/20 01/09/20 04:46 05:00 05:15 05:30 Pulse 59 59 70 57 Resp 22 B/P (MAP) 147/69 (95) 141/68 (92) 149/64 (92) Pulse Ox 91 95 92 93 01/09/20 01/09/20 01/09/20 01/09/20 05:45 05:53 06:00 06:15 Temp 98.6 Pulse 55 56 59 Resp 20 23 B/P (MAP) 146/69 (94) Pulse Ox 93 94 95 O2 Delivery Nasal Cannula O2 Flow Rate 4.00 01/09/20 01/09/20 01/09/20 01/09/20 06:45 07:00 07:15 07:30 Pulse 56 57 57 58 Resp 22 23 Pulse Ox 92 91 92 90 01/09/20 01/09/20 01/09/20 01/09/20 07:45 08:00 08:02 08:15 Temp 99.0 Pulse 58 58 61 59 Resp 23 20 13 25 B/P (MAP) 142/73 (96) 150/64 (92) Pulse Ox 93 88 94 89 01/09/20 01/09/20 01/09/20 01/09/20 08:30 08:30 08:41 08:42 Pulse 60 60 Resp 15 B/P (MAP) 144/66 (92) 144/66 144/66 Pulse Ox 94 O2 Delivery Nasal Cannula O2 Flow Rate 4.00 01/09/20 01/09/20 01/09/20 01/09/20 08:45 09:00 09:15 09:27 Pulse 61 64 64 59 Resp 23 25 23 15 B/P (MAP) 153/75 (101) 151/81 (104) 154/97 (116) Pulse Ox 90 86 89 92 O2 Delivery Nasal Cannula O2 Flow Rate 3.00 FiO2 32 01/09/20 01/09/20 01/09/20 01/09/20 09:28 09:30 09:30 09:45 Pulse 68 59 68 Resp 15 26 15 18 B/P (MAP) 126/84 (98) 146/72 (96) Pulse Ox 92 83 92 87 01/09/20 01/09/20 01/09/20 01/09/20 10:00 10:15 10:31 10:45 Pulse 65 64 63 67 Resp 16 16 26 24 B/P (MAP) 168/58 (94) 146/67 (93) 140/61 (87) 118/49 (72) Pulse Ox 90 87 90 88 01/09/20 01/09/20 01/09/20 01/09/20 11:01 11:15 11:31 11:45 Pulse 66 68 67 67 Resp 16 17 21 20 B/P (MAP) 149/64 (92) 157/75 (102) 145/73 (97) 142/72 (95) Pulse Ox 89 92 89 91 01/09/20 01/09/20 01/09/20 01/09/20 12:00 12:15 12:30 12:32 Pulse 66 70 68 Resp 28 22 B/P (MAP) 159/74 (102) 143/52 (82) 133/55 (81) Pulse Ox 91 89 92 O2 Delivery Nasal Cannula O2 Flow Rate 4.00 01/09/20 01/09/20 01/09/20 01/09/20 12:45 13:00 13:15 13:31 Temp 98.7 Pulse 66 65 67 67 Resp 30 26 22 B/P (MAP) 129/69 (89) 133/62 (85) 122/56 (78) 139/73 (95) Pulse Ox 92 90 94 91 01/09/20 01/09/20 01/09/20 01/09/20 13:50 14:00 14:15 14:30 Pulse 59 67 66 65 Resp 15 15 17 25 B/P (MAP) 133/64 (87) 120/53 (75) 124/60 (81) Pulse Ox 92 90 92 91 01/09/20 01/09/20 01/09/20 01/09/20 14:45 15:00 15:15 15:16 Pulse 64 64 64 Resp 24 24 24 15 B/P (MAP) 138/74 (95) 130/60 (83) 137/63 (87) Pulse Ox 91 89 92 92 01/09/20 01/09/20 01/09/20 01/09/20 15:30 15:45 16:00 16:15 Pulse 65 64 59 59 Resp 22 20 26 21 B/P (MAP) 141/63 (89) 132/69 (90) 126/53 (77) 114/60 (78) Pulse Ox 88 87 89 89 01/09/20 01/09/20 01/09/20 01/09/20 16:30 16:45 16:45 17:00 Temp 98.6 Pulse 61 59 61 Resp 26 23 22 B/P (MAP) 131/56 (81) 131/58 (82) Pulse Ox 94 91 91 O2 Delivery Nasal Cannula O2 Flow Rate 4.00 01/09/20 01/09/20 01/09/20 01/09/20 17:01 17:15 17:16 17:30 Pulse 61 57 58 58 Resp 23 22 21 26 B/P (MAP) 135/69 (91) 132/54 (80) 128/66 (86) Pulse Ox 90 88 92 92 01/09/20 01/09/20 01/09/20 01/09/20 17:45 17:46 17:46 18:00 Pulse 60 61 61 59 Resp 38 15 23 27 B/P (MAP) 142/99 (113) 150/71 (97) Pulse Ox 93 92 92 93 01/09/20 01/09/20 01/09/20 01/09/20 18:15 18:30 18:45 19:00 Pulse 58 63 65 67 Resp 19 21 22 23 B/P (MAP) 113/64 (80) 128/72 (90) Pulse Ox 95 86 92 94 01/09/20 01/09/20 01/09/20 19:15 19:30 19:49 Temp 98.6 Pulse 62 61 Resp 16 21 B/P (MAP) 122/59 (80) Pulse Ox 91 95 O2 Delivery Nasal Cannula O2 Flow Rate 4.00 Intake and Output 01/09/20 07:00 Intake Total 1622 ml Output Total 1350 ml Balance 272 ml General: Alert, Oriented X3, Cooperative, No acute distress HEENT: Atraumatic, PERRLA Neck: Supple, No JVD Lungs: Clear to auscultation Heart: Regular rate, Normal S1, Normal S2, No murmurs Abdomen: Normal bowel sounds, Soft, No tenderness, No masses Extremities: No clubbing, No cyanosis, No edema, Normal pulses, No tenderness/swelling Skin: No rashes, No breakdown, No significant lesion Neuro: Normal gait, Normal speech, Strength at 5/5 X4 ext, Normal tone, Sensation intact Psych/Mental Status: Mental status NL, Mood NL All Results(Lab/Rad) Laboratory Tests Test 01/09/20 04:23 White Blood Count 8.4 10^3/uL Red Blood Count 4.66 10^6/uL Hemoglobin 13.0 g/dL Hematocrit 39.8 % Mean Corpuscular Volume 85.4 fL Mean Corpuscular Hemoglobin 27.9 pg Mean Corpuscular Hemoglobin Concent 32.7 g/dL Red Cell Distribution Width 14.2 % Platelet Count 268 10^3/uL Mean Platelet Volume 10.3 fL Neutrophils (%) (Auto) 76.8 % Lymphocytes (%) (Auto) 14.1 % Monocytes (%) (Auto) 8.8 % Neutrophils # (Auto) 6.4 10^3/uL Lymphocytes # (Auto) 1.18 10^3/uL1 Monocytes # (Auto) 0.7 10^3/uL Absolute Immature Granulocyte (auto 0.02 10^3 u/L Absolute Eosinophils (auto) 0.0 10^3/uL Immature Granulocytes % 0.20 % Eosinophils % 0.0 % Basophils % 0.1 % Basophils # 0.0 10^3/uL Sodium Level 145 mmol/L Potassium Level 3.6 mmol/L Chloride Level 109.0 mmol/L Carbon Dioxide Level 26.1 mmol/L Anion Gap 13.5 Blood Urea Nitrogen 20 mg/dL Creatinine 1.04 mg/dL Estimated GFR () 61.1 Est GFR (CKD-EPI)(Non-Afr Uzbek) 50.5 BUN/Creatinine Ratio 19.0 Glucose Level 108 mg/dL Calcium Level 8.6 mg/dL Phosphorus Level 2.7 mg/dL Magnesium Level 1.8 mg/dL Total Bilirubin 0.2 mg/dL Aspartate Amino Transf (AST/SGOT) 27 U/L Alanine Aminotransferase (ALT/SGPT) 25 U/L Alkaline Phosphatase 94 U/L Pro-B-Type Natriuretic Peptide 150 pg/mL Total Protein 6.6 g/dL Albumin 3.0 g/dL Globulin 3.6 Albumin/Globulin Ratio 0.833 Current Medications Medications (Trade) Dose Ordered Sig/Khoi Route PRN Reason Start Time Stop Time Status Last Admin Dose Admin Amlodipine Besylate (Norvasc) 5 mg DAILY PO 01/08/20 09:00 02/07/20 08:59 01/09/20 08:41 Aspirin (Aspirin Ec) 81 mg DAILY PO 01/08/20 09:00 02/07/20 08:59 01/09/20 08:41 Atorvastatin Calcium (Lipitor) 40 mg HS PO 01/08/20 21:00 01/09/20 09:17 DC 01/08/20 21:26 Clopidogrel Bisulfate (Plavix) 75 mg DAILY PO 01/08/20 09:00 02/07/20 08:59 01/09/20 08:41 Losartan Potassium (Cozaar) 50 mg DAILY PO 01/08/20 09:00 02/07/20 08:59 01/09/20 08:42 Pantoprazole Sodium (Protonix) 40 mg DAILY PO 01/08/20 09:00 02/07/20 08:59 01/09/20 08:41 Acetaminophen (Tylenol) 1,000 mg Q6H PRN PO pain or fever 01/08/20 01:00 02/07/20 00:59 Morphine Sulfate (Morphine Sulfate) 2 mg Q4H PRN IV PAIN SEVER 01/08/20 01:00 02/07/20 00:59 Ondansetron HCl (Zofran) 4 mg Q4H PRN IV NAUSEA / VOMITING 01/08/20 01:00 02/07/20 00:59 Albuterol Sulfate (Ventolin) 2.5 mg RTQ4 IH 01/08/20 01:00 01/08/20 01:10 DC Albuterol Sulfate (Ventolin) 2.5 mg Q2 PRN IH SOB / wheezing 01/08/20 01:00 01/08/20 01:10 DC Ipratropium [place] (Atrovent) 0.5 mg Q4 IH 01/08/20 04:00 01/08/20 01:10 DC Ipratropium [place] (Atrovent) 0.5 mg Q2 PRN IH SOB / wheezing 01/08/20 01:00 01/08/20 01:10 DC Remdesivir (Eua) 200 mg/Sodium Chloride 250 ml @ 215.517 mls/hr OT ONCE IV 01/08/20 09:00 01/08/20 10:10 DC 01/08/20 09:00 Remdesivir (Eua) 100 mg/Sodium Chloride 250 ml @ 250 mls/hr DAILY IV 01/09/20 09:00 02/08/20 08:59 01/09/20 09:55 Ceftriaxone Sodium 1000 mg/ Sodium Chloride 100 ml @ 100 mls/hr Q24HRS IV 01/08/20 01:00 02/07/20 00:59 01/09/20 00:30 Azithromycin 500 mg/Sodium Chloride 250 ml @ 175 mls/hr Q24HRS IV 01/08/20 01:00 02/07/20 00:59 01/09/20 00:30 Potassium Chloride 200 ml @ 50 mls/hr OT IV 01/08/20 01:00 01/08/20 04:59 DC 01/08/20 01:58 Heparin Sodium (Porcine) (Heparin) 5,000 unit Q8HR SQ 01/08/20 06:00 02/07/20 05:59 01/09/20 13:48 Sodium Chloride 1,000 ml @ 75 mls/hr [id number] IV 01/08/20 01:30 02/07/20 01:29 01/09/20 17:46 Lactobacillus Acidophilus (Bacid) 1 each TIDM PO 01/08/20 08:00 02/07/20 07:59 01/09/20 17:46 Guaifenesin (Mucinex) 600 mg BID PO 01/08/20 09:00 02/07/20 08:59 01/09/20 08:41 Sodium Chloride 100 ml @ ud STK-MED ONCE IV 01/08/20 01:06 01/08/20 01:08 DC Sodium Chloride 500 ml @ ud STK-MED ONCE IV 01/08/20 01:06 01/08/20 01:08 DC Sodium Chloride 250 ml @ ud STK-MED ONCE IV 01/08/20 01:07 01/08/20 01:09 DC Ceftriaxone Sodium (Rocephin) 1,000 mg STK-MED ONCE .ROUTE 01/08/20 01:07 01/08/20 01:09 DC Albuterol/ Ipratropium (Combivent Respimat 20-100 Mcg) 1 inh RTQ4 01/08/20 05:00 02/07/20 04:59 01/09/20 17:00 Albuterol/ Ipratropium (Combivent Respimat 20-100 Mcg) 120 inh STK-MED ONCE 01/08/20 01:35 01/08/20 01:37 DC Ascorbic Acid (Vitamin C) 500 mg DAILY PO 01/08/20 09:00 02/07/20 08:59 01/09/20 08:41 Zinc Sulfate (Zinc Sulfate) 220 mg DAILY PO 01/08/20 09:00 02/07/20 08:59 01/09/20 08:41 Heparin Sodium (Porcine) (Heparin) 5,000 unit STK-MED ONCE .ROUTE 01/08/20 04:24 01/08/20 04:26 DC Losartan Potassium (Cozaar) 50 mg STK-MED ONCE .ROUTE 01/08/20 07:42 01/08/20 07:44 DC Aspirin (Aspirin) 81 mg STK-MED ONCE .ROUTE 01/08/20 07:42 01/08/20 07:44 DC Ascorbic Acid (Vitamin C) 500 mg STK-MED ONCE .ROUTE 01/08/20 07:42 01/08/20 07:44 DC Guaifenesin (Mucinex) 600 mg STK-MED ONCE PO 01/08/20 07:42 01/08/20 07:44 DC Pantoprazole Sodium (Protonix) 40 mg STK-MED ONCE PO 01/08/20 07:43 01/08/20 07:45 DC Amlodipine Besylate (Norvasc) 5 mg STK-MED ONCE .ROUTE 01/08/20 07:43 01/08/20 07:46 DC Clopidogrel Bisulfate (Plavix) 75 mg STK-MED ONCE .ROUTE 01/08/20 07:44 01/08/20 07:46 DC Atorvastatin Calcium (Lipitor) 40 mg HS PO 01/09/20 21:00 02/07/20 20:59 Course Sepsis Screening Results: Posi: POSITIVE Sepsis Qualifier/Stage: SEPSIS RISK DATE SEEN BY PHYSICIAN: Jan 09, 2020 Duration or Total Time Spent w: 45 Vitals & review Data Vital Sign - Last 24 Hours 01/08/20 01/08/20 01/08/20 01/08/20 20:30 20:45 21:00 21:15 Pulse 59 59 60 60 Resp 24 14 23 19 B/P (MAP) 125/58 (80) 124/43 (70) 115/58 (77) 130/62 (84) Pulse Ox 93 94 92 92 01/08/20 01/08/20 01/08/20 01/08/20 21:30 21:45 23:00 23:15 Pulse 55 56 59 57 Resp 22 30 24 B/P (MAP) 127/60 (82) 138/108 (118) 134/67 (89) 133/69 (90) Pulse Ox 95 96 93 92 01/08/20 01/08/20 01/09/20 01/09/20 23:30 23:45 00:00 00:00 Pulse 57 56 57 Resp 25 22 22 B/P (MAP) 131/69 (89) 140/62 (88) 139/59 (85) Pulse Ox 93 92 95 O2 Delivery Nasal Cannula O2 Flow Rate 4.00 01/09/20 01/09/20 01/09/20 01/09/20 00:15 00:30 00:45 01:00 Pulse 59 59 61 56 Resp 22 24 25 22 B/P (MAP) 132/62 (85) 127/65 (85) Pulse Ox 91 91 92 96 01/09/20 01/09/20 01/09/20 01/09/20 01:00 01:15 01:30 01:45 Pulse 57 58 61 58 Resp 22 19 23 B/P (MAP) 153/66 (95) 108/69 (82) 128/47 (74) Pulse Ox 92 92 91 92 01/09/20 01/09/20 01/09/20 01/09/20 02:00 02:15 02:30 02:45 Pulse 61 61 60 59 Resp 21 24 26 B/P (MAP) 139/64 (89) 128/63 (84) 130/61 (84) 141/58 (85) Pulse Ox 93 93 94 91 01/09/20 01/09/20 01/09/20 01/09/20 03:00 03:15 03:30 03:45 Pulse 59 59 56 57 Resp 24 22 B/P (MAP) 138/58 (84) 131/64 (86) 131/60 (83) 133/62 (85) Pulse Ox 95 92 92 92 01/09/20 01/09/20 01/09/20 01/09/20 04:00 04:15 04:30 04:45 Pulse 57 56 56 57 Resp 22 B/P (MAP) 139/61 (87) 140/65 (90) 134/62 (86) 144/65 (91) Pulse Ox 92 92 89 89 01/09/20 01/09/20 01/09/20 01/09/20 04:46 05:00 05:15 05:30 Pulse 59 59 70 57 Resp 23 22 B/P (MAP) 147/69 (95) 141/68 (92) 149/64 (92) Pulse Ox 91 95 92 93 01/09/20 01/09/20 01/09/20 01/09/20 05:45 05:53 06:00 06:15 Temp 98.6 Pulse 55 56 59 Resp 20 23 B/P (MAP) 146/69 (94) Pulse Ox 93 94 95 O2 Delivery Nasal Cannula O2 Flow Rate 4.00 01/09/20 01/09/20 01/09/20 01/09/20 06:45 07:00 07:15 07:30 Pulse 56 57 57 58 Resp 24 23 22 23 Pulse Ox 92 91 92 90 01/09/20 01/09/20 01/09/20 01/09/20 07:45 08:00 08:02 08:15 Temp 99.0 Pulse 58 58 61 59 Resp 23 20 13 25 B/P (MAP) 142/73 (96) 150/64 (92) Pulse Ox 93 88 94 89 01/09/20 01/09/20 01/09/20 01/09/20 08:30 08:30 08:41 08:42 Pulse 60 60 Resp 15 B/P (MAP) 144/66 (92) 144/66 144/66 Pulse Ox 94 O2 Delivery Nasal Cannula O2 Flow Rate 4.00 01/09/20 01/09/20 01/09/20 01/09/20 08:45 09:00 09:15 09:27 Pulse 61 64 64 59 Resp 23 25 23 15 B/P (MAP) 153/75 (101) 151/81 (104) 154/97 (116) Pulse Ox 90 86 89 92 O2 Delivery Nasal Cannula O2 Flow Rate 3.00 FiO2 32 01/09/20 01/09/20 01/09/20 01/09/20 09:28 09:30 09:30 09:45 Pulse 68 59 68 Resp 15 26 15 18 B/P (MAP) 126/84 (98) 146/72 (96) Pulse Ox 92 83 92 87 01/09/20 01/09/20 01/09/20 01/09/20 10:00 10:15 10:31 10:45 Pulse 65 64 63 67 Resp 16 16 26 24 B/P (MAP) 168/58 (94) 146/67 (93) 140/61 (87) 118/49 (72) Pulse Ox 90 87 90 88 01/09/20 01/09/20 01/09/20 01/09/20 11:01 11:15 11:31 11:45 Pulse 66 68 67 67 Resp 16 17 21 20 B/P (MAP) 149/64 (92) 157/75 (102) 145/73 (97) 142/72 (95) Pulse Ox 89 92 89 91 01/09/20 01/09/20 01/09/20 01/09/20 12:00 12:15 12:30 12:32 Pulse 66 70 68 Resp 28 22 B/P (MAP) 159/74 (102) 143/52 (82) 133/55 (81) Pulse Ox 91 89 92 O2 Delivery Nasal Cannula O2 Flow Rate 4.00 01/09/20 01/09/20 01/09/20 01/09/20 12:45 13:00 13:15 13:31 Temp 98.7 Pulse 66 65 67 67 Resp 30 26 22 B/P (MAP) 129/69 (89) 133/62 (85) 122/56 (78) 139/73 (95) Pulse Ox 92 90 94 91 01/09/20 01/09/20 01/09/20 01/09/20 13:50 14:00 14:15 14:30 Pulse 59 67 66 65 Resp 15 15 17 25 B/P (MAP) 133/64 (87) 120/53 (75) 124/60 (81) Pulse Ox 92 90 92 91 01/09/20 01/09/20 01/09/20 01/09/20 14:45 15:00 15:15 15:16 Pulse 64 64 64 Resp 24 24 24 15 B/P (MAP) 138/74 (95) 130/60 (83) 137/63 (87) Pulse Ox 91 89 92 92 01/09/20 01/09/20 01/09/20 01/09/20 15:30 15:45 16:00 16:15 Pulse 65 64 59 59 Resp 22 20 26 21 B/P (MAP) 141/63 (89) 132/69 (90) 126/53 (77) 114/60 (78) Pulse Ox 88 87 89 89 01/09/20 01/09/20 01/09/20 01/09/20 16:30 16:45 16:45 17:00 Temp 98.6 Pulse 61 59 61 Resp 26 23 22 B/P (MAP) 131/56 (81) 131/58 (82) Pulse Ox 94 91 91 O2 Delivery Nasal Cannula O2 Flow Rate 4.00 01/09/20 01/09/20 01/09/20 01/09/20 17:01 17:15 17:16 17:30 Pulse 61 57 58 58 Resp 23 22 21 26 B/P (MAP) 135/69 (91) 132/54 (80) 128/66 (86) Pulse Ox 90 88 92 92 01/09/20 01/09/20 01/09/20 01/09/20 17:45 17:46 17:46 18:00 Pulse 60 61 61 59 Resp 38 15 23 27 B/P (MAP) 142/99 (113) 150/71 (97) Pulse Ox 93 92 92 93 01/09/20 01/09/20 01/09/20 01/09/20 18:15 18:30 18:45 19:00 Pulse 58 63 65 67 Resp 19 21 22 23 B/P (MAP) 113/64 (80) 128/72 (90) Pulse Ox 95 86 92 94 9/29/20 9/29/20 9/29/20 19:15 19:30 19:49 Temp 98.6 Pulse 62 61 Resp 16 21 B/P (MAP) 122/59 (80) Pulse Ox 91 95 O2 Delivery Nasal Cannula O2 Flow Rate 4.00 Intake and Output 01/09/20 07:00 Intake Total 1622 ml Output Total 1350 ml Balance 272 ml Laboratory Tests Test 01/08/20 01:35 01/08/20 04:45 01/08/20 05:09 01/09/20 04:23 Bedside Glucose 131 Urine Collection Type VOID Urine Color YELLOW Urine Appearance HAZY Urine Bilirubin NEGATIVE MG/DL Urine Ketones NEGATIVE Urine Specific [place] 1.020 Urine pH 6.0 Urine Protein TRACE Urine Urobilinogen NORMAL Urine Nitrate NEGATIVE Urine Leukocyte Esterase 25 /uL TRACE Urine Blood TRACE Urine RBC 0-2 RBC/HPF Urine WBC 10-25 WBC/HPF Urine Squamous Epithelial Cells FEW #/HPF Urine Bacteria FEW Urine Glucose NEGATIVE White Blood Count 3.7 10^3/uL 8.4 10^3/uL Red Blood Count 4.95 10^6/uL 4.66 10^6/uL Hemoglobin 13.7 g/dL 13.0 g/dL Hematocrit 42.3 % 39.8 % Mean Corpuscular Volume 85.5 fL 85.4 fL Mean Corpuscular Hemoglobin 27.7 pg 27.9 pg Mean Corpuscular Hemoglobin Concent 32.4 g/dL 32.7 g/dL Red Cell Distribution Width 14.1 % 14.2 % Platelet Count 256 10^3/uL 268 10^3/uL Mean Platelet Volume 10.4 fL 10.3 fL Neutrophils (%) (Auto) 76.5 % 76.8 % Lymphocytes (%) (Auto) 19.1 % 14.1 % Monocytes (%) (Auto) 3.8 % 8.8 % Neutrophils # (Auto) 2.8 10^3/uL 6.4 10^3/uL Lymphocytes # (Auto) 0.71 10^3/uL1 1.18 10^3/uL1 Monocytes # (Auto) 0.1 10^3/uL 0.7 10^3/uL Absolute Immature Granulocyte (auto 0.01 10^3 u/L 0.02 10^3 u/L Absolute Eosinophils (auto) 0.0 10^3/uL 0.0 10^3/uL Immature Granulocytes % 0.30 % 0.20 % Eosinophils % 0.0 % 0.0 % Basophils % 0.3 % 0.1 % Basophils # 0.0 10^3/uL 0.0 10^3/uL Prothrombin Time 10.4 SEC Prothrombin Time INR (Non-Therap) 1.0 Activated Partial Thromboplast Time 25.2 SEC Fibrinogen 472 mg/dL Sodium Level 136 mmol/L 145 mmol/L Potassium Level 3.7 mmol/L 3.6 mmol/L Chloride Level 103.0 mmol/L 109.0 mmol/L Carbon Dioxide Level 22.7 mmol/L 26.1 mmol/L Anion Gap 14.0 13.5 Blood Urea Nitrogen 17 mg/dL 20 mg/dL Creatinine 1.09 mg/dL 1.04 mg/dL Estimated GFR () 57.9 61.1 Est GFR (CKD-EPI)(Non-Afr Uzbek) 47.8 50.5 BUN/Creatinine Ratio 15.0 19.0 Glucose Level 154 mg/dL 108 mg/dL Calcium Level 8.9 mg/dL 8.6 mg/dL Phosphorus Level 3.3 mg/dL 2.7 mg/dL Magnesium Level 1.8 mg/dL 1.8 mg/dL Ferritin 101 ng/mL Total Bilirubin 0.3 mg/dL 0.2 mg/dL Aspartate Amino Transf (AST/SGOT) 36 U/L 27 U/L Alanine Aminotransferase (ALT/SGPT) 32 U/L 25 U/L Alkaline Phosphatase 97 U/L 94 U/L Lactate Dehydrogenase 209 U/L C-Reactive Protein 8.47 mg/dL Pro-B-Type Natriuretic Peptide 103 pg/mL 150 pg/mL Total Protein 7.6 g/dL 6.6 g/dL Albumin 3.2 g/dL 3.0 g/dL Globulin 4.4 3.6 Albumin/Globulin Ratio 0.727 0.833 Triglycerides Level 61 mg/dL Cholesterol Level 93 mg/dL LDL Cholesterol, Calculated 32.8 VLDL Cholesterol, Calculated 12.2 HDL Cholesterol 48 mg/dL Cholesterol Ratio (LDL/HDL) 0.6 Cholesterol/HDL Ratio [id number] Vitamin B12 Level 1018 pg/mL Procalcitonin < 0.05 ng/mL Thyroid Stimulating Hormone (TSH) 0.934 mIU/mL Current Medications Medications (Trade) Dose Ordered Sig/Khoi PRN Reason Start Time Stop Time Status Last Admin Acetaminophen (Tylenol) 1,000 mg Q6H PRN pain or fever 01/08/20 01:00 02/07/20 00:59 Albuterol/ Ipratropium (Combivent Respimat 20-100 Mcg) 1 inh RTQ4 01/08/20 05:00 02/07/20 04:59 01/09/20 17:00 Amlodipine Besylate (Norvasc) 5 mg DAILY 01/08/20 09:00 02/07/20 08:59 01/09/20 08:41 Ascorbic Acid (Vitamin C) 500 mg DAILY 01/08/20 09:00 02/07/20 08:59 01/09/20 08:41 Aspirin (Aspirin Ec) 81 mg DAILY 01/08/20 09:00 02/07/20 08:59 01/09/20 08:41 Atorvastatin Calcium (Lipitor) 40 mg HS 01/09/20 21:00 02/07/20 20:59 Azithromycin 500 mg/Sodium Chloride 250 ml @ 175 mls/hr Q24HRS 01/08/20 01:00 02/07/20 00:59 01/09/20 00:30 Ceftriaxone Sodium 1000 mg/ Sodium Chloride 100 ml @ 100 mls/hr Q24HRS 01/08/20 01:00 02/07/20 00:59 01/09/20 00:30 Clopidogrel Bisulfate (Plavix) 75 mg DAILY 01/08/20 09:00 02/07/20 08:59 01/09/20 08:41 Guaifenesin (Mucinex) 600 mg BID 01/08/20 09:00 02/07/20 08:59 01/09/20 08:41 Heparin Sodium (Porcine) (Heparin) 5,000 unit Q8HR 01/08/20 06:00 02/07/20 05:59 01/09/20 13:48 Lactobacillus Acidophilus (Bacid) 1 each TIDM 01/08/20 08:00 02/07/20 07:59 01/09/20 17:46 Losartan Potassium (Cozaar) 50 mg DAILY 01/08/20 09:00 02/07/20 08:59 01/09/20 08:42 Morphine Sulfate (Morphine Sulfate) 2 mg Q4H PRN PAIN SEVER 01/08/20 01:00 02/07/20 00:59 Ondansetron HCl (Zofran) 4 mg Q4H PRN NAUSEA / VOMITING 01/08/20 01:00 02/07/20 00:59 Pantoprazole Sodium (Protonix) 40 mg DAILY 01/08/20 09:00 02/07/20 08:59 01/09/20 08:41 Remdesivir (Eua) 100 mg/Sodium Chloride 250 ml @ 250 mls/hr DAILY 01/09/20 09:00 02/08/20 08:59 01/09/20 09:55 Sodium Chloride 1,000 ml @ 75 mls/hr [id number] 01/08/20 01:30 02/07/20 01:29 01/09/20 17:46 Zinc Sulfate (Zinc Sulfate) 220 mg DAILY 01/08/20 09:00 02/07/20 08:59 01/09/20 08:41 Sepsis Infection Criteria Pres: None LEVEL 1 SEPSIS INFECTION CRITE: Flu-Pneumonia LEVEL 2-SIRS (LIST ALL THAT AP: None/Not assessed Cardiovascular Evidence: Not Assessed or None Hematologic Evidence: None/Not assessed Hepatic Evidence: None/Not assessed Metabolic Evidence: None/Not assessed Neurological Evidence: None/Not assessed Respiratory Evidence: Acute Resp failure, Need for O2 to keep>90%, O2 SAT<90room air Renal Evidence: None/Not assessed O2 Sat by Pulse Oximetry: 95 Oxygen Flow Rate: 4.00 Assessment/Plan Assessment/Plan Assessment/Plan PROGRESS NOTE ASSESSMENT / PLAN: 1) Acute Encephalopathy: Back to baseline. Will continue to monitor. 2) Acute Hypoxemic Respiratory Failure: continue with Br Tx's, O2 PRN, and Steroids. Continue aggressive RT protocol. 3) COVID-19 infection: positive test.Continue Tx with Remdesivir and Decadron 6mg iv daily 4) BL Pneumonia: Will continue Rocephin and Azithromycin, pending Sputum Cx results. 5) UTI (POA): Continue Rocephin and follow up on the Ur Cx results. 6) Volume Depletion: improved 7) Stool studies pending 8) COPD exacerbation: likely due to covid 19 infection, Will continue Br Tx's, O2 PRN, and steroids. 9) HTN: Currently stable on her home meds. Monitor for now. 10) Generalized Weakness: Will request a PT evaluation once pt is more stable. 11) GI and DVT prophylaxis: Will continue Protonix and Heparin. RENNY ARTEAGA MD Jan 09, 2020 20:29
--- NOTE | 2020-01-09 20:29 | NUR ---
Pt covid test came out positive. Called and notified Dr. Monroe at this time. He requested for pt to stay on same treatment as is. Will continue to monitor.
[2020-01-09] MEDS: LIPITOR PO SCH (20:34)
[2020-01-10] VITALS (83 sets, daily range): BP systolic 109–194; BP diastolic 37–122
[2020-01-10] MEDS: ZITHROMAX 500 MG in NS 250ML 250 ML IV SCH
[2020-01-10] MEDS: ROCEPHIN 1,000 MG in NS 100ML 100 ML IV SCH (01:22)
[2020-01-10] MEDS: COMBIVENT RESPIMAT 20-100 MCG IH SCH ×6 (04:41→21:00)
[2020-01-10] MEDS: HEPARIN SQ SCH ×3 (05:01→21:42)
[2020-01-10 05:34] LABS: BASOPHIL % 0.2 % (0.0-0.2); LYMPHOCYTES # 1.48 10^3/uL1 (1.0-4.8); LYMPHOCYTES % 30.1 % (24.0-44.0); MEAN CORP HGB 27.6 pg (26-34); MONOCYTES # 0.7 10^3/uL (0.3-0.8); MONOCYTES % 14.1 % (5.0-12.0); NEUTROPHIL # 2.7 10^3/uL (1.8-7.7); NEUTROPHILS % 55.2 % (41.0-85.0); PLATELET COUNT 265 10^3/uL (150-400); RED CELL DISTRIBUTION WIDTH 14.4 % (11.5-14.5)
[2020-01-10 05:53] LABS: CALCIUM 8.9 mg/dL (8.4-10.5)
--- NOTE | 2020-01-10 06:30 | NUR ---
Report Received report and assumed care of pt. Pt resting in bed. Equal rise and fall of the chest noted. No s/s of distress noted.
[2020-01-10] MEDS: NS 1000ML 1,000 ML IV SCH ×2 (06:50→21:41)
[2020-01-10] MEDS: BACID PO SCH ×3 (08:00→18:00)
[2020-01-10] MEDS: NS IV SCH (09:13)
[2020-01-10] MEDS: REMDESIVIR IV SCH (09:13)
[2020-01-10] MEDS: DECADRON IV SCH (09:13)
[2020-01-10] MEDS: PROTONIX PO SCH (09:14)
[2020-01-10] MEDS: NORVASC PO SCH (09:14)
[2020-01-10] MEDS: COZAAR PO SCH (09:14)
[2020-01-10] MEDS: ZINC SULFATE PO SCH (09:14)
[2020-01-10] MEDS: ASPIRIN EC PO SCH (09:14)
[2020-01-10] MEDS: PLAVIX PO SCH (09:14)
[2020-01-10] MEDS: MUCINEX PO SCH ×2 (09:14→21:41)
[2020-01-10] MEDS: VITAMIN C PO SCH (09:14)
--- NOTE | 2020-01-10 10:00 | NUR ---
Dr. Regan Spears at bedside. No new orders received.
--- NOTE | 2020-01-10 18:45 | NUR ---
REPORT RECEIVED FROM ROCIO HUNTER. ASSUMED PT CARE.
[2020-01-10] MEDS: LIPITOR PO SCH (21:41)
[2020-01-11] VITALS (80 sets, daily range): BP systolic 115–206; BP diastolic 55–112
[2020-01-11] MEDS: ROCEPHIN 1,000 MG in NS 100ML 100 ML IV SCH (00:27)
[2020-01-11] MEDS: COMBIVENT RESPIMAT 20-100 MCG IH SCH ×6 (01:00→21:00)
--- NOTE | 2020-01-11 01:14 | NUR ---
ROCIO AVILA REPORTED TO RT SHE DECREASED PT O2 TO 3.5 LPM. TGSHANEL,BECK TENDER
[2020-01-11] MEDS: ZITHROMAX 500 MG in NS 250ML 250 ML IV SCH (01:49)
[2020-01-11] MEDS: HEPARIN SQ SCH ×3 (05:23→21:31)
[2020-01-11 05:43] LABS: BASOPHIL % 0.2 % (0.0-0.2); LYMPHOCYTES # 1.56 10^3/uL1 (1.0-4.8); LYMPHOCYTES % 30.3 % (24.0-44.0); MEAN CORP HGB 27.5 pg (26-34); MONOCYTES # 0.6 10^3/uL (0.3-0.8); MONOCYTES % 11.8 % (5.0-12.0); NEUTROPHILS % 57.3 % (41.0-85.0); PLATELET COUNT 260 10^3/uL (150-400); RED CELL DISTRIBUTION WIDTH 14.2 % (11.5-14.5)
[2020-01-11 05:57] LABS: CARBON DIOXIDE 25.9 mmol/L (20.0-32)
--- NOTE | 2020-01-11 06:10 | NUR ---
BATH: PT REFUSED BATH THIS MORNING. PER PT REPORT "MAYBE LATER".
--- NOTE | 2020-01-11 06:26 | NUR ---
DR ARTEAGA NOTIFIED OF POTASSIUM LEVEL OF 2.9. TELEPHONE ORDER GIVEN TO ADMIN POTASSIUM 40MEQ PO 1 TAB OT AND 40MEQ IVPB OT. TELEPHONE ORDER RBAV.
--- NOTE | 2020-01-11 06:50 | NUR ---
REPORT TO ONCOMING SHIFT. PT CARE RELINQUISHED.
[2020-01-11] MEDS ORDERED: KCL 20MEQ/100ML 100 ML IV ONE ×2 (07:00→09:00)
[2020-01-11] MEDS ORDERED: KLOR-CON 10 PO ONE (07:00)
[2020-01-11] MEDS: BACID PO SCH ×3 (07:50→17:09)
[2020-01-11] MEDS: ZINC SULFATE PO SCH (08:53)
[2020-01-11] MEDS: NORVASC PO SCH (08:53)
[2020-01-11] MEDS: VITAMIN C PO SCH (08:53)
[2020-01-11] MEDS: ASPIRIN EC PO SCH (08:53)
[2020-01-11] MEDS: MUCINEX PO SCH ×2 (08:53→21:31)
[2020-01-11] MEDS: PLAVIX PO SCH (08:53)
[2020-01-11] MEDS: COZAAR PO SCH (08:54)
[2020-01-11] MEDS: PROTONIX PO SCH (08:54)
[2020-01-11] MEDS: DECADRON IV SCH (08:54)
[2020-01-11] MEDS: NS 1000ML 1,000 ML IV SCH ×2 (09:30→21:31)
--- NOTE | 2020-01-11 10:27 | DIREP ---
PROCEDURE:CHEST 1 VIEW COMPARISON:[facility], CT, CTA CHEST, 01/07/2020, 06:14 PM. [facility], CR, XRAY CHEST SINGLE VW, 01/07/2020, 04:35 PM. INDICATIONS:pneumonia FINDINGS: LUNGS/PLEURA:Interstitial prominence of the bilateral lung markings. No airspace consolidation or pleural effusion. Subtle patchy ground-glass opacification in several areas of the right mid and lower lung field. CARDIAC:Borderline to mild cardiomegaly calcification of the aortic knob. MEDIASTINUM:Normal. No visible mass or adenopathy. BONES:Dorsal column stimulator electrodes over the T-spine. OTHER:Negative. CONCLUSION: 1. Very subtle areas of ground-glass opacity identified in the right lung, consistent with the patchy areas of opacity identified on recent CT pulmonary angiogram, and highly consistent with COVID 19 pneumonia. No dense consolidation. 2. Borderline to mild cardiomegaly. Dictated by: Pablo Diehl M.D. on 01/11/2020 at 10:20 AM
--- NOTE | 2020-01-11 11:34 | NUR ---
O2 O2 TURNED DOWN TO 1.5L NC PER DR LYMAN ORDER. O2 SATS 92%, NO S/S OF DISTRESS NOTED. WILL CONT TO MONITOR, CALL LIGHT WITHIN REACH.
[2020-01-11] MEDS: REMDESIVIR IV SCH (13:47)
[2020-01-11] MEDS: NS IV SCH (13:47)
--- NOTE | 2020-01-11 17:50 | PRM.PN ---
Subjective Subjective Date: Jan 10, 2020 Time: 10:30 Subjective Patient seen and examined says she is doing much better but still requiring oxygen uses oxygen at home. Denies fever or chills. VTE VTE Risk Total Score: >5 VTE Risk Score VTE Risk: Score 0-1 = Low Risk (Aggressive mobilization; early ambulation; no VTE prophylaxis required) Score 2: Moderate Risk (Intermittent/Pneumatic Compression Device OR Lovenox/Heparin/Coumadin) Score 3-4: High Risk (Intermittent/Pneumatic Compression Device AND Lovenox/Heparin/Coumadin) Score > or =5: Highest Risk (Intermittent/Pneumatic Compression Device AND Lovenox/Heparin/Coumadin) Antico:Hep/LMWH/Coum/Xarelto: No Review of Systems Constitutional: No: Fever, Chills, Sweats, Weakness, Malaise Eyes: No: Pain, Vision change, Conjunctivae inflammation, Eyelid inflammation, Redness ENT: No: Ear pain, Ear discharge, Nose pain, Nose discharge, Nose congestion, Mouth pain, Mouth swelling, Throat pain, Throat swelling Respiratory: Shortness of breath; No: Cough, Dry, SOB with excertion, Wheezing, Hemoptysis, Pleuritic Pain, Sputum, Wheezing Cardiovascular: No: Chest Pain, Palpitations, Orthopnea, Paroxysmal Noc. Dyspnea, Edema, Lt Headedness Gastrointestinal: Other; No: Nausea, Vomiting, Abdominal Pain, Diarrhea, Constipation, Melena, Hematochezia Genitourinary: No Dysuria, No Frequency, No Incontinence, No Hematuria, No Retention Musculoskeletal: No: neck pain, shoulder pain, arm pain, back pain, hand pain, leg pain, foot pain Skin: No: Rash, Lesions, Jaundice, Bruising Neurological: No: Weakness, Numbness, Incoordination, Change in speech, Confusion, Seizures Allergies: Coded Allergies: No Known Allergies (Unverified , 02/13/19) Scheduled Amlodipine Besylate (Amlodipine Besylate), 1 TAB PO DAILY Amoxicillin (Amoxicillin), 500 MG PO Q8HR Aspirin (Aspirin Ec), 81 MG PO DAILY Atorvastatin 20MG (Lipitor 20MG), 40 MG PO HS Clopidogrel Bisulfate (Clopidogrel), 75 MG PO DAILY Losartan Potassium (Cozaar), 50 MG PO DAILY Nystatin (Nystatin), 15 GM TP BID Pantoprazole Sodium (Protonix), 1 TAB PO DAILY Paroxetine Hcl (Paroxetine Hcl), 1 TAB PO DAILY Ursodiol (Karen), 1 TAB PO BID Scheduled PRN Cyanocobalamin (Vitamin B-12) (Cyanocobalamin Injection), 1,000 MCG IJ qmonth PRN for vit def Objective Vitals and I/O Vital Sign - Last 24 Hours 01/10/20 01/10/20 01/10/20 01/10/20 17:46 17:48 18:02 18:15 Pulse 64 Resp 36 B/P (MAP) 157/72 (100) 162/72 (102) 158/82 (107) Pulse Ox 97 98 95 96 01/10/20 01/10/20 01/10/20 01/10/20 18:30 18:45 19:00 19:17 Temp 97.9 B/P (MAP) 158/62 (94) 164/75 (104) 140/82 (101) 172/122 (139) Pulse Ox 95 97 97 98 01/10/20 01/10/20 01/10/20 01/10/20 19:30 19:45 20:01 20:20 Pulse 56 60 Resp 16 24 B/P (MAP) 161/78 (105) 160/46 (84) 189/88 (121) 194/109 (137) Pulse Ox 97 96 95 93 01/10/20 01/10/20 01/10/20 01/10/20 20:30 20:35 20:46 21:00 Pulse 59 55 54 Resp 22 17 21 B/P (MAP) 157/75 (102) Pulse Ox 92 94 93 O2 Delivery Nasal Cannula O2 Flow Rate 4.00 01/10/20 01/10/20 01/10/20 01/10/20 21:00 21:15 21:32 21:45 Pulse 54 53 56 58 Resp 21 22 26 21 B/P (MAP) 147/107 (120) 171/67 (101) Pulse Ox 93 94 93 93 O2 Delivery Nasal Cannula O2 Flow Rate 3.00 FiO2 32 01/10/20 01/10/20 01/10/20 01/10/20 22:02 22:16 22:30 22:46 Pulse 53 55 55 54 Resp 21 20 22 21 B/P (MAP) 156/66 (96) 164/81 (108) 148/64 (92) 174/59 (97) Pulse Ox 93 94 97 95 01/10/20 01/10/20 01/10/20 01/10/20 23:00 23:15 23:31 23:45 Pulse 52 52 54 55 Resp 23 18 22 23 B/P (MAP) 178/72 (107) 166/82 (110) 174/79 (110) 169/79 (109) Pulse Ox 96 96 96 97 01/11/20 01/11/20 01/11/20 01/11/20 00:00 00:15 00:25 00:30 Temp 97.9 Pulse 55 49 56 Resp 25 17 18 B/P (MAP) 167/77 (107) 148/69 (95) 158/80 (106) Pulse Ox 96 94 94 O2 Delivery Nasal Cannula O2 Flow Rate 4.00 01/11/20 01/11/20 01/11/20 01/11/20 00:45 01:00 01:14 01:15 Pulse 56 52 52 60 Resp 17 24 24 24 B/P (MAP) 165/76 (105) 135/82 (99) Pulse Ox 97 96 96 92 01/11/20 01/11/20 01/11/20 01/11/20 01:30 01:45 02:00 02:15 Pulse 63 59 55 55 Resp 21 18 19 25 B/P (MAP) 141/64 (89) 152/55 (87) 163/64 (97) 156/77 (103) Pulse Ox 92 92 93 93 01/11/20 01/11/20 01/11/20 01/11/20 02:30 02:45 03:00 03:15 Pulse 56 60 57 56 Resp 19 18 16 19 B/P (MAP) 157/65 (95) 156/67 (96) 163/73 (103) 153/74 (100) Pulse Ox 93 92 95 94 01/11/20 01/11/20 01/11/20 01/11/20 03:30 03:47 04:00 04:15 Temp 97.9 Pulse 61 62 61 60 Resp 21 24 24 22 B/P (MAP) 166/85 (112) 183/73 (109) Pulse Ox 96 96 96 94 01/11/20 01/11/20 01/11/20 01/11/20 04:30 04:33 04:45 05:00 Pulse 60 58 57 Resp 26 24 20 Pulse Ox 91 94 92 O2 Delivery Nasal Cannula O2 Flow Rate 3.00 01/11/20 01/11/20 01/11/20 01/11/20 05:15 05:30 05:45 06:00 Pulse 55 58 62 60 Resp 20 19 22 10 B/P (MAP) 168/85 (112) Pulse Ox 94 94 94 94 01/11/20 01/11/20 01/11/20 01/11/20 06:15 06:30 06:45 06:45 Pulse 60 59 56 56 Resp 14 20 19 19 B/P (MAP) 142/79 (100) 159/79 (105) 154/61 (92) 154/61 (92) Pulse Ox 92 92 91 91 01/11/20 01/11/20 01/11/20 01/11/20 07:00 07:15 07:30 07:45 Pulse 59 57 57 55 Resp 16 17 23 18 B/P (MAP) 165/70 (101) 165/77 (106) 151/61 (91) 135/61 (85) Pulse Ox 94 93 93 92 01/11/20 01/11/20 01/11/20 01/11/20 08:00 08:15 08:20 08:20 Temp 97.9 Pulse 56 62 65 65 Resp 19 20 18 20 B/P (MAP) 154/59 (90) Pulse Ox 95 92 94 94 O2 Delivery Nasal Cannula O2 Flow Rate 2.00 01/11/20 01/11/20 01/11/20 01/11/20 08:31 08:45 08:53 08:54 Pulse 63 60 63 Resp 19 23 B/P (MAP) 140/80 (100) 154/70 (98) 161/79 161/79 Pulse Ox 90 91 01/11/20 01/11/20 01/11/20 01/11/20 09:00 09:15 09:15 09:31 Pulse 63 64 Resp 20 22 B/P (MAP) 161/79 (106) 152/60 (90) 150/66 (94) Pulse Ox 93 94 92 O2 Delivery Nasal Cannula O2 Flow Rate 3.00 01/11/20 01/11/20 01/11/20 01/11/20 09:45 10:00 10:01 10:15 Pulse 67 69 71 70 Resp 14 17 20 19 B/P (MAP) 159/77 (104) 152/75 (100) Pulse Ox 91 89 90 92 01/11/20 01/11/20 01/11/20 01/11/20 10:30 10:45 11:00 11:15 Pulse 68 68 67 68 Resp 18 19 20 20 B/P (MAP) 160/75 (103) 173/76 (108) 170/87 (114) Pulse Ox 93 93 93 94 01/11/20 01/11/20 01/11/20 01/11/20 11:16 11:30 11:37 11:45 Temp 98.3 Pulse 67 68 66 68 Resp 17 18 17 18 B/P (MAP) 172/90 (117) 206/93 (130) 164/80 (108) 167/76 (106) Pulse Ox 94 93 93 92 01/11/20 01/11/20 01/11/20 01/11/20 12:00 12:03 12:15 12:16 Pulse 66 67 67 Resp 19 18 17 B/P (MAP) 162/84 (110) 150/87 (108) Pulse Ox 92 93 93 O2 Delivery Nasal Cannula O2 Flow Rate 3.00 01/11/20 01/11/20 01/11/20 01/11/20 12:30 12:45 13:00 13:30 Pulse 69 60 62 69 Resp 19 20 18 19 B/P (MAP) 164/72 (102) 153/72 (99) 153/73 (99) Pulse Ox 93 94 94 93 01/11/20 01/11/20 01/11/20 01/11/20 13:32 13:45 14:00 14:15 Pulse 70 67 66 68 Resp 17 18 20 19 B/P (MAP) 115/62 (79) 137/63 (87) 139/77 (97) 127/77 (94) Pulse Ox 84 94 94 94 01/11/20 01/11/20 01/11/20 01/11/20 14:30 14:45 15:00 15:15 Pulse 65 67 70 66 Resp 18 19 18 17 B/P (MAP) 181/78 (112) 134/67 (89) Pulse Ox 95 95 95 96 01/11/20 01/11/20 01/11/20 01/11/20 15:16 15:30 15:45 16:00 Pulse 68 65 64 63 Resp 18 18 19 18 B/P (MAP) 146/68 (94) 136/64 (88) 151/82 (105) 134/79 (97) Pulse Ox 95 93 90 94 01/11/20 01/11/20 01/11/20 01/11/20 16:15 16:30 16:45 16:46 Temp 98.2 Pulse 65 64 65 Resp 18 18 20 B/P (MAP) 152/85 (107) 145/86 (105) Pulse Ox 95 94 94 O2 Delivery Nasal Cannula O2 Flow Rate 3.00 01/11/20 01/11/20 01/11/20 17:00 17:15 17:30 Pulse 63 63 64 Resp 18 18 19 B/P (MAP) 154/79 (104) 156/86 (109) 158/95 (116) Pulse Ox 94 95 92 Intake and Output 01/11/20 06:59 Intake Total 2937 ml Output Total 4675 ml Balance -1738 ml General: Alert, Oriented X3, Cooperative, No acute distress HEENT: Atraumatic, PERRLA Neck: Supple, No JVD Lungs: Clear to auscultation Heart: Regular rate, Normal S1, Normal S2, No murmurs Abdomen: Normal bowel sounds, Soft, No tenderness, No masses Extremities: No clubbing, No cyanosis, No edema, Normal pulses, No tenderness/swelling Skin: No rashes, No breakdown, No significant lesion Neuro: Normal gait, Normal speech, Strength at 5/5 X4 ext, Normal tone, Sensation intact Psych/Mental Status: Mental status NL, Mood NL All Results(Lab/Rad) Laboratory Tests Test 01/09/20 04:23 White Blood Count 8.4 10^3/uL Red Blood Count 4.66 10^6/uL Hemoglobin 13.0 g/dL Hematocrit 39.8 % Mean Corpuscular Volume 85.4 fL Mean Corpuscular Hemoglobin 27.9 pg Mean Corpuscular Hemoglobin Concent 32.7 g/dL Red Cell Distribution Width 14.2 % Platelet Count 268 10^3/uL Mean Platelet Volume 10.3 fL Neutrophils (%) (Auto) 76.8 % Lymphocytes (%) (Auto) 14.1 % Monocytes (%) (Auto) 8.8 % Neutrophils # (Auto) 6.4 10^3/uL Lymphocytes # (Auto) 1.18 10^3/uL1 Monocytes # (Auto) 0.7 10^3/uL Absolute Immature Granulocyte (auto 0.02 10^3 u/L Absolute Eosinophils (auto) 0.0 10^3/uL Immature Granulocytes % 0.20 % Eosinophils % 0.0 % Basophils % 0.1 % Basophils # 0.0 10^3/uL Sodium Level 145 mmol/L Potassium Level 3.6 mmol/L Chloride Level 109.0 mmol/L Carbon Dioxide Level 26.1 mmol/L Anion Gap 13.5 Blood Urea Nitrogen 20 mg/dL Creatinine 1.04 mg/dL Estimated GFR () 61.1 Est GFR (CKD-EPI)(Non-Afr [place]) 50.5 BUN/Creatinine Ratio 19.0 Glucose Level 108 mg/dL Calcium Level 8.6 mg/dL Phosphorus Level 2.7 mg/dL Magnesium Level 1.8 mg/dL Total Bilirubin 0.2 mg/dL Aspartate Amino Transf (AST/SGOT) 27 U/L Alanine Aminotransferase (ALT/SGPT) 25 U/L Alkaline Phosphatase 94 U/L Pro-B-Type Natriuretic Peptide 150 pg/mL Total Protein 6.6 g/dL Albumin 3.0 g/dL Globulin 3.6 Albumin/Globulin Ratio 0.833 Current Medications Medications (Trade) Dose Ordered Sig/Khoi Route PRN Reason Start Time Stop Time Status Last Admin Dose Admin Amlodipine Besylate (Norvasc) 5 mg DAILY PO 01/08/20 09:00 02/07/20 08:59 01/09/20 08:41 Aspirin (Aspirin Ec) 81 mg DAILY PO 01/08/20 09:00 02/07/20 08:59 01/09/20 08:41 Atorvastatin Calcium (Lipitor) 40 mg HS PO 01/08/20 21:00 01/09/20 09:17 DC 01/08/20 21:26 Clopidogrel Bisulfate (Plavix) 75 mg DAILY PO 01/08/20 09:00 02/07/20 08:59 01/09/20 08:41 Losartan Potassium (Cozaar) 50 mg DAILY PO 01/08/20 09:00 02/07/20 08:59 01/09/20 08:42 Pantoprazole Sodium (Protonix) 40 mg DAILY PO 01/08/20 09:00 02/07/20 08:59 01/09/20 08:41 Acetaminophen (Tylenol) 1,000 mg Q6H PRN PO pain or fever 01/08/20 01:00 02/07/20 00:59 Morphine Sulfate (Morphine Sulfate) 2 mg Q4H PRN IV PAIN SEVER 01/08/20 01:00 02/07/20 00:59 Ondansetron HCl (Zofran) 4 mg Q4H PRN IV NAUSEA / VOMITING 01/08/20 01:00 02/07/20 00:59 Albuterol Sulfate (Ventolin) 2.5 mg RTQ4 IH 01/08/20 01:00 01/08/20 01:10 DC Albuterol Sulfate (Ventolin) 2.5 mg Q2 PRN IH SOB / wheezing 01/08/20 01:00 01/08/20 01:10 DC Ipratropium [place] (Atrovent) 0.5 mg Q4 IH 01/08/20 04:00 01/08/20 01:10 DC Ipratropium [place] (Atrovent) 0.5 mg Q2 PRN IH SOB / wheezing 01/08/20 01:00 01/08/20 01:10 DC Remdesivir (Eua) 200 mg/Sodium Chloride 250 ml @ 215.517 mls/hr OT ONCE IV 01/08/20 09:00 01/08/20 10:10 DC 01/08/20 09:00 Remdesivir (Eua) 100 mg/Sodium Chloride 250 ml @ 250 mls/hr DAILY IV 01/09/20 09:00 02/08/20 08:59 01/09/20 09:55 Ceftriaxone Sodium 1000 mg/ Sodium Chloride 100 ml @ 100 mls/hr Q24HRS IV 01/08/20 01:00 02/07/20 00:59 01/09/20 00:30 Azithromycin 500 mg/Sodium Chloride 250 ml @ 175 mls/hr Q24HRS IV 01/08/20 01:00 02/07/20 00:59 01/09/20 00:30 Potassium Chloride 200 ml @ 50 mls/hr OT IV 01/08/20 01:00 01/08/20 04:59 DC 01/08/20 01:58 Heparin Sodium (Porcine) (Heparin) 5,000 unit Q8HR SQ 01/08/20 06:00 02/07/20 05:59 01/09/20 13:48 Sodium Chloride 1,000 ml @ 75 mls/hr [id number] IV 01/08/20 01:30 02/07/20 01:29 01/09/20 17:46 Lactobacillus Acidophilus (Bacid) 1 each TIDM PO 01/08/20 08:00 02/07/20 07:59 01/09/20 17:46 Guaifenesin (Mucinex) 600 mg BID PO 01/08/20 09:00 02/07/20 08:59 01/09/20 08:41 Sodium Chloride 100 ml @ ud STK-MED ONCE IV 01/08/20 01:06 01/08/20 01:08 DC Sodium Chloride 500 ml @ ud STK-MED ONCE IV 01/08/20 01:06 01/08/20 01:08 DC Sodium Chloride 250 ml @ ud STK-MED ONCE IV 01/08/20 01:07 01/08/20 01:09 DC Ceftriaxone Sodium (Rocephin) 1,000 mg STK-MED ONCE .ROUTE 01/08/20 01:07 01/08/20 01:09 DC Albuterol/ Ipratropium (Combivent Respimat 20-100 Mcg) 1 inh RTQ4 IH 01/08/20 05:00 02/07/20 04:59 01/09/20 17:00 Albuterol/ Ipratropium (Combivent Respimat 20-100 Mcg) 120 inh STK-MED ONCE IH 01/08/20 01:35 01/08/20 01:37 DC Ascorbic Acid (Vitamin C) 500 mg DAILY PO 01/08/20 09:00 02/07/20 08:59 01/09/20 08:41 Zinc Sulfate (Zinc Sulfate) 220 mg DAILY PO 01/08/20 09:00 02/07/20 08:59 01/09/20 08:41 Heparin Sodium (Porcine) (Heparin) 5,000 unit STK-MED ONCE .ROUTE 01/08/20 04:24 01/08/20 04:26 DC Losartan Potassium (Cozaar) 50 mg STK-MED ONCE .ROUTE 01/08/20 07:42 01/08/20 07:44 DC Aspirin (Aspirin) 81 mg STK-MED ONCE .ROUTE 01/08/20 07:42 01/08/20 07:44 DC Ascorbic Acid (Vitamin C) 500 mg STK-MED ONCE .ROUTE 01/08/20 07:42 01/08/20 07:44 DC Guaifenesin (Mucinex) 600 mg STK-MED ONCE PO 01/08/20 07:42 01/08/20 07:44 DC Pantoprazole Sodium (Protonix) 40 mg STK-MED ONCE PO 01/08/20 07:43 01/08/20 07:45 DC Amlodipine Besylate (Norvasc) 5 mg STK-MED ONCE .ROUTE 01/08/20 07:43 01/08/20 07:46 DC Clopidogrel Bisulfate (Plavix) 75 mg STK-MED ONCE .ROUTE 01/08/20 07:44 01/08/20 07:46 DC Atorvastatin Calcium (Lipitor) 40 mg HS PO 01/09/20 21:00 02/07/20 20:59 Course Sepsis Screening Results: Posi: POSITIVE Sepsis Qualifier/Stage: SEPSIS RISK DATE SEEN BY PHYSICIAN: Jan 09, 2020 Duration or Total Time Spent w: 45 Vitals & review Data Vital Sign - Last 24 Hours 01/08/20 01/08/20 01/08/20 01/08/20 20:30 20:45 21:00 21:15 Pulse 59 59 60 60 Resp 24 14 23 19 B/P (MAP) 125/58 (80) 124/43 (70) 115/58 (77) 130/62 (84) Pulse Ox 93 94 92 92 01/08/20 01/08/20 01/08/20 01/08/20 21:30 21:45 23:00 23:15 Pulse 55 56 59 57 Resp 24 22 30 24 B/P (MAP) 127/60 (82) 138/108 (118) 134/67 (89) 133/69 (90) Pulse Ox 95 96 93 92 01/08/20 01/08/20 01/09/20 01/09/20 23:30 23:45 00:00 00:00 Pulse 57 56 57 Resp 25 22 22 B/P (MAP) 131/69 (89) 140/62 (88) 139/59 (85) Pulse Ox 93 92 95 O2 Delivery Nasal Cannula O2 Flow Rate 4.00 9/29/20 9/29/20 9/29/20 9/29/20 00:15 00:30 00:45 01:00 Pulse 59 59 61 56 Resp 22 B/P (MAP) 132/62 (85) 127/65 (85) Pulse Ox 91 91 92 96 01/09/20 01/09/20 01/09/20 01/09/20 01:00 01:15 01:30 01:45 Pulse 57 58 61 58 Resp 23 B/P (MAP) 153/66 (95) 108/69 (82) 128/47 (74) Pulse Ox 92 92 91 92 01/09/20 01/09/20 01/09/20 01/09/20 02:00 02:15 02:30 02:45 Pulse 61 61 60 59 Resp B/P (MAP) 139/64 (89) 128/63 (84) 130/61 (84) 141/58 (85) Pulse Ox 93 93 94 91 01/09/20 01/09/20 01/09/20 01/09/20 03:00 03:15 03:30 03:45 Pulse 59 59 56 57 Resp 22 B/P (MAP) 138/58 (84) 131/64 (86) 131/60 (83) 133/62 (85) Pulse Ox 95 92 92 92 01/09/20 01/09/20 01/09/20 01/09/20 04:00 04:15 04:30 04:45 Pulse 57 56 56 57 Resp 22 B/P (MAP) 139/61 (87) 140/65 (90) 134/62 (86) 144/65 (91) Pulse Ox 92 92 89 89 01/09/20 01/09/20 01/09/20 01/09/20 04:46 05:00 05:15 05:30 Pulse 59 59 70 57 Resp 23 22 B/P (MAP) 147/69 (95) 141/68 (92) 149/64 (92) Pulse Ox 91 95 92 93 01/09/20 01/09/20 01/09/20 01/09/20 05:45 05:53 06:00 06:15 Temp 98.6 Pulse 55 56 59 Resp 23 B/P (MAP) 146/69 (94) Pulse Ox 93 94 95 O2 Delivery Nasal Cannula O2 Flow Rate 4.00 9/2901/09/20 01/09/20 01/09/20 06:45 07:00 07:15 07:30 Pulse 56 57 57 58 Resp 24 23 22 23 Pulse Ox 92 91 92 90 01/09/20 01/09/20 01/09/20 01/09/20 07:45 08:00 08:02 08:15 Temp 99.0 Pulse 58 58 61 59 Resp 23 20 13 25 B/P (MAP) 142/73 (96) 150/64 (92) Pulse Ox 93 88 94 89 01/09/20 01/09/20 01/09/20 01/09/20 08:30 08:30 08:41 08:42 Pulse 60 60 Resp 15 B/P (MAP) 144/66 (92) 144/66 144/66 Pulse Ox 94 O2 Delivery Nasal Cannula O2 Flow Rate 4.00 01/09/20 01/09/20 01/09/20 01/09/20 08:45 09:00 09:15 09:27 Pulse 61 64 64 59 Resp 23 25 23 15 B/P (MAP) 153/75 (101) 151/81 (104) 154/97 (116) Pulse Ox 90 86 89 92 O2 Delivery Nasal Cannula O2 Flow Rate 3.00 FiO2 32 01/09/20 01/09/20 01/09/20 01/09/20 09:28 09:30 09:30 09:45 Pulse 68 59 68 Resp 15 26 15 18 B/P (MAP) 126/84 (98) 146/72 (96) Pulse Ox 92 83 92 87 01/09/20 01/09/20 01/09/20 01/09/20 10:00 10:15 10:31 10:45 Pulse 65 64 63 67 Resp 16 16 26 24 B/P (MAP) 168/58 (94) 146/67 (93) 140/61 (87) 118/49 (72) Pulse Ox 90 87 90 88 01/09/20 01/09/20 01/09/20 01/09/20 11:01 11:15 11:31 11:45 Pulse 66 68 67 67 Resp 16 17 21 20 B/P (MAP) 149/64 (92) 157/75 (102) 145/73 (97) 142/72 (95) Pulse Ox 89 92 89 91 01/09/20 01/09/20 01/09/20 01/09/20 12:00 12:15 12:30 12:32 Pulse 66 70 68 Resp 28 22 B/P (MAP) 159/74 (102) 143/52 (82) 133/55 (81) Pulse Ox 91 89 92 O2 Delivery Nasal Cannula O2 Flow Rate 4.00 01/09/20 01/09/20 01/09/20 01/09/20 12:45 13:00 13:15 13:31 Temp 98.7 Pulse 66 65 67 67 Resp 22 B/P (MAP) 129/69 (89) 133/62 (85) 122/56 (78) 139/73 (95) Pulse Ox 92 90 94 91 01/09/20 01/09/20 01/09/20 01/09/20 13:50 14:00 14:15 14:30 Pulse 59 67 66 65 Resp 15 15 17 25 B/P (MAP) 133/64 (87) 120/53 (75) 124/60 (81) Pulse Ox 92 90 92 91 01/09/20 01/09/20 01/09/20 01/09/20 14:45 15:00 15:15 15:16 Pulse 64 64 64 Resp 24 24 24 15 B/P (MAP) 138/74 (95) 130/60 (83) 137/63 (87) Pulse Ox 91 89 92 92 01/09/20 01/09/20 01/09/20 01/09/20 15:30 15:45 16:00 16:15 Pulse 65 64 59 59 Resp 20 26 21 B/P (MAP) 141/63 (89) 132/69 (90) 126/53 (77) 114/60 (78) Pulse Ox 88 87 89 89 01/09/20 01/09/20 01/09/20 01/09/20 16:30 16:45 16:45 17:00 Temp 98.6 Pulse 61 59 61 Resp 23 22 B/P (MAP) 131/56 (81) 131/58 (82) Pulse Ox 94 91 91 O2 Delivery Nasal Cannula O2 Flow Rate 4.00 01/09/20 01/09/20 01/09/20 01/09/20 17:01 17:15 17:16 17:30 Pulse 61 57 58 58 Resp 23 22 21 26 B/P (MAP) 135/69 (91) 132/54 (80) 128/66 (86) Pulse Ox 90 88 92 92 01/09/20 01/09/20 01/09/20 01/09/20 17:45 17:46 17:46 18:00 Pulse 60 61 61 59 Resp 38 15 23 27 B/P (MAP) 142/99 (113) 150/71 (97) Pulse Ox 93 92 92 93 01/09/20 01/09/20 01/09/20 01/09/20 18:15 18:30 18:45 19:00 Pulse 58 63 65 67 Resp 19 21 22 23 B/P (MAP) 113/64 (80) 128/72 (90) Pulse Ox 95 86 92 94 01/09/20 01/09/20 01/09/20 19:15 19:30 19:49 Temp 98.6 Pulse 62 61 Resp 16 21 B/P (MAP) 122/59 (80) Pulse Ox 91 95 O2 Delivery Nasal Cannula O2 Flow Rate 4.00 Intake and Output 01/09/20 07:00 Intake Total 1622 ml Output Total 1350 ml Balance 272 ml Laboratory Tests Test 01/08/20 01:35 01/08/20 04:45 01/08/20 05:09 01/09/20 04:23 Bedside Glucose 131 Urine Collection Type VOID Urine Color YELLOW Urine Appearance HAZY Urine Bilirubin NEGATIVE MG/DL Urine Ketones NEGATIVE Urine Specific [place] 1.020 Urine pH 6.0 Urine Protein TRACE Urine Urobilinogen NORMAL Urine Nitrate NEGATIVE Urine Leukocyte Esterase 25 /uL TRACE Urine Blood TRACE Urine RBC 0-2 RBC/HPF Urine WBC 10-25 WBC/HPF Urine Squamous Epithelial Cells FEW #/HPF Urine Bacteria FEW Urine Glucose NEGATIVE White Blood Count 3.7 10^3/uL 8.4 10^3/uL Red Blood Count 4.95 10^6/uL 4.66 10^6/uL Hemoglobin 13.7 g/dL 13.0 g/dL Hematocrit 42.3 % 39.8 % Mean Corpuscular Volume 85.5 fL 85.4 fL Mean Corpuscular Hemoglobin 27.7 pg 27.9 pg Mean Corpuscular Hemoglobin Concent 32.4 g/dL 32.7 g/dL Red Cell Distribution Width 14.1 % 14.2 % Platelet Count 256 10^3/uL 268 10^3/uL Mean Platelet Volume 10.4 fL 10.3 fL Neutrophils (%) (Auto) 76.5 % 76.8 % Lymphocytes (%) (Auto) 19.1 % 14.1 % Monocytes (%) (Auto) 3.8 % 8.8 % Neutrophils # (Auto) 2.8 10^3/uL 6.4 10^3/uL Lymphocytes # (Auto) 0.71 10^3/uL1 1.18 10^3/uL1 Monocytes # (Auto) 0.1 10^3/uL 0.7 10^3/uL Absolute Immature Granulocyte (auto 0.01 10^3 u/L 0.02 10^3 u/L Absolute Eosinophils (auto) 0.0 10^3/uL 0.0 10^3/uL Immature Granulocytes % 0.30 % 0.20 % Eosinophils % 0.0 % 0.0 % Basophils % 0.3 % 0.1 % Basophils # 0.0 10^3/uL 0.0 10^3/uL Prothrombin Time 10.4 SEC Prothrombin Time INR (Non-Therap) 1.0 Activated Partial Thromboplast Time 25.2 SEC Fibrinogen 472 mg/dL Sodium Level 136 mmol/L 145 mmol/L Potassium Level 3.7 mmol/L 3.6 mmol/L Chloride Level 103.0 mmol/L 109.0 mmol/L Carbon Dioxide Level 22.7 mmol/L 26.1 mmol/L Anion Gap 14.0 13.5 Blood Urea Nitrogen 17 mg/dL 20 mg/dL Creatinine 1.09 mg/dL 1.04 mg/dL Estimated GFR () 57.9 61.1 Est GFR (CKD-EPI)(Non-Afr [place]) 47.8 50.5 BUN/Creatinine Ratio 15.0 19.0 Glucose Level 154 mg/dL 108 mg/dL Calcium Level 8.9 mg/dL 8.6 mg/dL Phosphorus Level 3.3 mg/dL 2.7 mg/dL Magnesium Level 1.8 mg/dL 1.8 mg/dL Ferritin 101 ng/mL Total Bilirubin 0.3 mg/dL 0.2 mg/dL Aspartate Amino Transf (AST/SGOT) 36 U/L 27 U/L Alanine Aminotransferase (ALT/SGPT) 32 U/L 25 U/L Alkaline Phosphatase 97 U/L 94 U/L Lactate Dehydrogenase 209 U/L C-Reactive Protein 8.47 mg/dL Pro-B-Type Natriuretic Peptide 103 pg/mL 150 pg/mL Total Protein 7.6 g/dL 6.6 g/dL Albumin 3.2 g/dL 3.0 g/dL Globulin 4.4 3.6 Albumin/Globulin Ratio 0.727 0.833 Triglycerides Level 61 mg/dL Cholesterol Level 93 mg/dL LDL Cholesterol, Calculated 32.8 VLDL Cholesterol, Calculated 12.2 HDL Cholesterol 48 mg/dL Cholesterol Ratio (LDL/HDL) 0.6 Cholesterol/HDL Ratio [id number] Vitamin B12 Level 1018 pg/mL Procalcitonin < 0.05 ng/mL Thyroid Stimulating Hormone (TSH) 0.934 mIU/mL Current Medications Medications (Trade) Dose Ordered Sig/Khoi PRN Reason Start Time Stop Time Status Last Admin Acetaminophen (Tylenol) 1,000 mg Q6H PRN pain or fever 01/08/20 01:00 02/07/20 00:59 Albuterol/ Ipratropium (Combivent Respimat 20-100 Mcg) 1 inh RTQ4 01/08/20 05:00 02/07/20 04:59 01/09/20 17:00 Amlodipine Besylate (Norvasc) 5 mg DAILY 01/08/20 09:00 02/07/20 08:59 01/09/20 08:41 Ascorbic Acid (Vitamin C) 500 mg DAILY 01/08/20 09:00 02/07/20 08:59 01/09/20 08:41 Aspirin (Aspirin Ec) 81 mg DAILY 01/08/20 09:00 02/07/20 08:59 01/09/20 08:41 Atorvastatin Calcium (Lipitor) 40 mg HS 01/09/20 21:00 02/07/20 20:59 Azithromycin 500 mg/Sodium Chloride 250 ml @ 175 mls/hr Q24HRS 01/08/20 01:00 02/07/20 00:59 01/09/20 00:30 Ceftriaxone Sodium 1000 mg/ Sodium Chloride 100 ml @ 100 mls/hr Q24HRS 01/08/20 01:00 02/07/20 00:59 01/09/20 00:30 Clopidogrel Bisulfate (Plavix) 75 mg DAILY 01/08/20 09:00 02/07/20 08:59 01/09/20 08:41 Guaifenesin (Mucinex) 600 mg BID 01/08/20 09:00 02/07/20 08:59 01/09/20 08:41 Heparin Sodium (Porcine) (Heparin) 5,000 unit Q8HR 01/08/20 06:00 02/07/20 05:59 01/09/20 13:48 Lactobacillus Acidophilus (Bacid) 1 each TIDM 01/08/20 08:00 02/07/20 07:59 01/09/20 17:46 Losartan Potassium (Cozaar) 50 mg DAILY 01/08/20 09:00 02/07/20 08:59 01/09/20 08:42 Morphine Sulfate (Morphine Sulfate) 2 mg Q4H PRN PAIN SEVER 01/08/20 01:00 02/07/20 00:59 Ondansetron HCl (Zofran) 4 mg Q4H PRN NAUSEA / VOMITING 01/08/20 01:00 02/07/20 00:59 Pantoprazole Sodium (Protonix) 40 mg DAILY 01/08/20 09:00 02/07/20 08:59 01/09/20 08:41 Remdesivir (Eua) 100 mg/Sodium Chloride 250 ml @ 250 mls/hr DAILY 01/09/20 09:00 02/08/20 08:59 01/09/20 09:55 Sodium Chloride 1,000 ml @ 75 mls/hr [id number] 01/08/20 01:30 02/07/20 01:29 01/09/20 17:46 Zinc Sulfate (Zinc Sulfate) 220 mg DAILY 01/08/20 09:00 02/07/20 08:59 01/09/20 08:41 Sepsis Infection Criteria Pres: None LEVEL 1 SEPSIS INFECTION CRITE: ABX Therapy, Flu-Pneumonia LEVEL 2-SIRS (LIST ALL THAT AP: None/Not assessed Cardiovascular Evidence: Not Assessed or None Hematologic Evidence: None/Not assessed Hepatic Evidence: None/Not assessed Metabolic Evidence: None/Not assessed Neurological Evidence: None/Not assessed Respiratory Evidence: Need for O2 to keep>90%, O2 SAT<90room air Renal Evidence: None/Not assessed O2 Sat by Pulse Oximetry: 92 Oxygen Flow Rate: 3.00 Assessment/Plan Assessment/Plan Assessment/Plan . Problems: (1) Acute and chronic respiratory failure Status: Chronic Assessment & Plan: back to home baseline ICD Code: J96.20 - Acute and chronic respiratory failure, unspecified whether with hypoxia or hypercapnia SNOMED: [id number] (2) Viral pneumonia Status: Acute Assessment & Plan: tested positive for COVID-19 infection continue with treatment ICD Code: J12.9 - Viral pneumonia, unspecified SNOMED: [id number] (3) COVID-19 Status: Acute Assessment & Plan: Continue with remdesivir treatment including steroids IV and INH. improving ICD Code: U07.1 - COVID-19 SNOMED: [id number] Plan PROGRESS NOTE 1) Acute Encephalopathy: Back to baseline. Will continue to monitor. 2) Acute Hypoxemic Respiratory Failure: continue with Br Tx's, O2 PRN, and Steroids. Continue aggressive RT protocol. 3) COVID-19 infection: positive test.Continue Tx with Remdesivir and Decadron 6mg iv daily 4) BL Pneumonia: Will continue Rocephin and Azithromycin, pending Sputum Cx results. 5) UTI (POA): Continue Rocephin and follow up on the Ur Cx results. no urine culture growth 6) Volume Depletion: improved 7) Stool studies negative 8) COPD exacerbation: likely due to covid 19 infection, Will continue Br Tx's, O2 PRN, and steroids. started on Remdesivire 9) HTN: Currently stable on her home meds. Monitor for now. 10) Generalized Weakness: Will request a PT evaluation once pt is more stable. 11) GI and DVT prophylaxis: Will continue Protonix and Heparin. RENNY ARTEAGA MD Jan 11, 2020 17:50
--- NOTE | 2020-01-11 17:58 | PRM.PN ---
Subjective Subjective Date: Jan 11, 2020 Time: 10:40 Subjective Patient seen and examined says she is doing much better Denies fever or chills. VTE VTE Risk Total Score: >5 VTE Risk Score VTE Risk: Score 0-1 = Low Risk (Aggressive mobilization; early ambulation; no VTE prophylaxis required) Score 2: Moderate Risk (Intermittent/Pneumatic Compression Device OR Lovenox/Heparin/Coumadin) Score 3-4: High Risk (Intermittent/Pneumatic Compression Device AND Lovenox/Heparin/Coumadin) Score > or =5: Highest Risk (Intermittent/Pneumatic Compression Device AND Lovenox/Heparin/Coumadin) Antico:Hep/LMWH/Coum/Xarelto: No Review of Systems Constitutional: No: Fever, Chills, Sweats, Weakness, Malaise Eyes: No: Pain, Vision change, Conjunctivae inflammation, Eyelid inflammation, Redness ENT: No: Ear pain, Ear discharge, Nose pain, Nose discharge, Nose congestion, Mouth pain, Mouth swelling, Throat pain, Throat swelling Respiratory: Shortness of breath; No: Cough, Dry, SOB with excertion, Wheezing, Hemoptysis, Pleuritic Pain, Sputum, Wheezing Cardiovascular: No: Chest Pain, Palpitations, Orthopnea, Paroxysmal Noc. Dyspn ea, Edema, Lt Headedness Gastrointestinal: Other; No: Nausea, Vomiting, Abdominal Pain, Diarrhea, Constipation, Melena, Hematochezia Genitourinary: No Dysuria, No Frequency, No Incontinence, No Hematuria, No Rete ntion Musculoskeletal: No: neck pain, shoulder pain, arm pain, back pain, hand pain, leg pain, foot pain Skin: No: Rash, Lesions, Jaundice, Bruising Neurological: No: Weakness, Numbness, Incoordination, Change in speech, Confusion, Seizures Allergies: Coded Allergies: No Known Allergies (Unverified , 02/13/19) Scheduled Amlodipine Besylate (Amlodipine Besylate), 1 TAB PO DAILY Amoxicillin (Amoxicillin), 500 MG PO Q8HR Aspirin (Aspirin Ec), 81 MG PO DAILY Atorvastatin 20MG (Lipitor 20MG), 40 MG PO HS Clopidogrel Bisulfate (Clopidogrel), 75 MG PO DAILY Losartan Potassium (Cozaar), 50 MG PO DAILY Nystatin (Nystatin), 15 GM TP BID Pantoprazole Sodium (Protonix), 1 TAB PO DAILY Paroxetine Hcl (Paroxetine Hcl), 1 TAB PO DAILY Ursodiol (Karen), 1 TAB PO BID Scheduled PRN Cyanocobalamin (Vitamin B-12) (Cyanocobalamin Injection), 1,000 MCG IJ qmonth PRN for vit def Objective Vitals and I/O Vital Sign - Last 24 Hours 01/10/20 01/10/20 01/10/20 01/10/20 18:02 18:15 18:30 18:45 B/P (MAP) 162/72 (102) 158/82 (107) 158/62 (94) 164/75 (104) Pulse Ox 95 96 95 97 01/10/20 01/10/20 01/10/20 01/10/20 19:00 19:17 19:30 19:45 Temp 97.9 B/P (MAP) 140/82 (101) 172/122 (139) 161/78 (105) 160/46 (84) Pulse Ox 97 98 97 96 01/10/20 01/10/20 01/10/20 01/10/20 20:01 20:20 20:30 20:35 Pulse 56 60 59 Resp 16 24 22 B/P (MAP) 189/88 (121) 194/109 (137) Pulse Ox 95 93 92 O2 Delivery Nasal Cannula O2 Flow Rate 4.00 01/10/20 01/10/20 01/10/20 01/10/20 20:46 21:00 21:00 21:15 Pulse 55 54 54 53 Resp 17 21 21 22 B/P (MAP) 157/75 (102) 147/107 (120) Pulse Ox 94 93 93 94 O2 Delivery Nasal Cannula O2 Flow Rate 3.00 FiO2 32 01/10/20 01/10/20 01/10/20 01/10/20 21:32 21:45 22:02 22:16 Pulse 56 58 53 55 Resp 26 21 21 20 B/P (MAP) 171/67 (101) 156/66 (96) 164/81 (108) Pulse Ox 93 93 93 94 01/10/20 01/10/20 01/10/20 01/10/20 22:30 22:46 23:00 23:15 Pulse 55 54 52 52 Resp 22 21 23 18 B/P (MAP) 148/64 (92) 174/59 (97) 178/72 (107) 166/82 (110) Pulse Ox 97 95 96 96 01/10/20 01/10/20 01/11/20 01/11/20 23:31 23:45 00:00 00:15 Pulse 54 55 55 49 Resp 22 23 25 17 B/P (MAP) 174/79 (110) 169/79 (109) 167/77 (107) 148/69 (95) Pulse Ox 96 97 96 94 01/11/20 01/11/20 01/11/20 01/11/20 00:25 00:30 00:45 01:00 Temp 97.9 Pulse 56 56 52 Resp 18 17 24 B/P (MAP) 158/80 (106) 165/76 (105) Pulse Ox 94 97 96 O2 Delivery Nasal Cannula O2 Flow Rate 4.00 01/11/20 01/11/20 01/11/20 01/11/20 01:14 01:15 01:30 01:45 Pulse 52 60 63 59 Resp 24 24 21 18 B/P (MAP) 135/82 (99) 141/64 (89) 152/55 (87) Pulse Ox 96 92 92 92 01/11/20 01/11/20 01/11/20 01/11/20 02:00 02:15 02:30 02:45 Pulse 55 55 56 60 Resp 19 25 19 18 B/P (MAP) 163/64 (97) 156/77 (103) 157/65 (95) 156/67 (96) Pulse Ox 93 93 93 92 01/11/20 01/11/20 01/11/20 01/11/20 03:00 03:15 03:30 03:47 Pulse 57 56 61 62 Resp 16 19 21 24 B/P (MAP) 163/73 (103) 153/74 (100) 166/85 (112) 183/73 (109) Pulse Ox 95 94 96 96 01/11/20 01/11/20 01/11/20 01/11/20 04:00 04:15 04:30 04:33 Temp 97.9 Pulse 61 60 60 Resp 24 22 26 Pulse Ox 96 94 91 O2 Delivery Nasal Cannula O2 Flow Rate 3.00 01/11/20 01/11/20 01/11/20 01/11/20 04:45 05:00 05:15 05:30 Pulse 58 57 55 58 Resp 24 20 20 19 Pulse Ox 94 92 94 94 01/11/20 01/11/20 01/11/20 01/11/20 05:45 06:00 06:15 06:30 Pulse 62 60 60 59 Resp 22 10 14 20 B/P (MAP) 168/85 (112) 142/79 (100) 159/79 (105) Pulse Ox 94 94 92 92 01/11/20 01/11/20 01/11/20 01/11/20 06:45 06:45 07:00 07:15 Pulse 56 56 59 57 Resp 19 19 16 17 B/P (MAP) 154/61 (92) 154/61 (92) 165/70 (101) 165/77 (106) Pulse Ox 91 91 94 93 01/11/20 01/11/20 01/11/20 01/11/20 07:30 07:45 08:00 08:15 Temp 97.9 Pulse 57 55 56 62 Resp 23 18 19 20 B/P (MAP) 151/61 (91) 135/61 (85) 154/59 (90) Pulse Ox 93 92 95 92 01/11/20 01/11/20 01/11/20 01/11/20 08:20 08:20 08:31 08:45 Pulse 65 65 63 60 Resp 18 20 19 23 B/P (MAP) 140/80 (100) 154/70 (98) Pulse Ox 94 94 90 91 O2 Delivery Nasal Cannula O2 Flow Rate 2.00 01/11/20 01/11/20 01/11/20 01/11/20 08:53 08:54 09:00 09:15 Pulse 63 63 Resp 20 B/P (MAP) 161/79 161/79 161/79 (106) Pulse Ox 93 O2 Delivery Nasal Cannula O2 Flow Rate 3.00 01/11/20 01/11/20 01/11/20 01/11/20 09:15 09:31 09:45 10:00 Pulse 64 67 69 Resp 22 14 17 B/P (MAP) 152/60 (90) 150/66 (94) Pulse Ox 94 92 91 89 01/11/20 01/11/20 01/11/20 01/11/20 10:01 10:15 10:30 10:45 Pulse 71 70 68 68 Resp 20 19 18 19 B/P (MAP) 159/77 (104) 152/75 (100) 160/75 (103) 173/76 (108) Pulse Ox 90 92 93 93 01/11/20 01/11/20 01/11/20 01/11/20 11:00 11:15 11:16 11:30 Pulse 67 68 67 68 Resp 20 20 17 18 B/P (MAP) 170/87 (114) 172/90 (117) 206/93 (130) Pulse Ox 93 94 94 93 01/11/20 01/11/20 01/11/20 01/11/20 11:37 11:45 12:00 12:03 Temp 98.3 Pulse 66 68 66 Resp 17 18 19 B/P (MAP) 164/80 (108) 167/76 (106) 162/84 (110) Pulse Ox 93 92 92 O2 Delivery Nasal Cannula O2 Flow Rate 3.00 01/11/20 01/11/20 01/11/20 01/11/20 12:15 12:16 12:30 12:45 Pulse 67 67 69 60 Resp 18 17 19 20 B/P (MAP) 150/87 (108) 164/72 (102) 153/72 (99) Pulse Ox 93 93 93 94 01/11/20 01/11/20 01/11/20 01/11/20 13:00 13:30 13:32 13:45 Pulse 62 69 70 67 Resp 18 19 17 18 B/P (MAP) 153/73 (99) 115/62 (79) 137/63 (87) Pulse Ox 94 93 84 94 01/11/20 01/11/20 01/11/20 01/11/20 14:00 14:15 14:30 14:45 Pulse 66 68 65 67 Resp 20 19 18 19 B/P (MAP) 139/77 (97) 127/77 (94) 181/78 (112) Pulse Ox 94 94 95 95 01/11/20 01/11/20 01/11/20 01/11/20 15:00 15:15 15:16 15:30 Pulse 70 66 68 65 Resp 18 17 18 18 B/P (MAP) 134/67 (89) 146/68 (94) 136/64 (88) Pulse Ox 95 96 95 93 01/11/20 01/11/20 01/11/20 01/11/20 15:45 16:00 16:15 16:30 Temp 98.2 Pulse 64 63 65 64 Resp 19 18 18 18 B/P (MAP) 151/82 (105) 134/79 (97) 152/85 (107) Pulse Ox 90 94 95 94 01/11/20 01/11/20 01/11/20 01/11/20 16:45 16:46 17:00 17:15 Pulse 65 63 63 Resp 20 18 18 B/P (MAP) 145/86 (105) 154/79 (104) 156/86 (109) Pulse Ox 94 94 95 O2 Delivery Nasal Cannula O2 Flow Rate 3.00 01/11/20 17:30 Pulse 64 Resp 19 B/P (MAP) 158/95 (116) Pulse Ox 92 Intake and Output 01/11/20 07:00 Intake Total 2937 ml Output Total 4675 ml Balance -1738 ml General: Alert, Oriented X3, Cooperative, No acute distress HEENT: Atraumatic, PERRLA Neck: Supple, No JVD Lungs: Clear to auscultation Heart: Regular rate, Normal S1, Normal S2, No murmurs Abdomen: Normal bowel sounds, Soft, No tenderness, No masses Extremities: No clubbing, No cyanosis, No edema, Normal pulses, No tenderness/swelling Skin: No rashes, No breakdown, No significant lesion Neuro: Normal gait, Normal speech, Strength at 5/5 X4 ext, Normal tone, Sensation intact Psych/Mental Status: Mental status NL, Mood NL All Results(Lab/Rad) Laboratory Tests Test 01/09/20 04:23 White Blood Count 8.4 10^3/uL Red Blood Count 4.66 10^6/uL Hemoglobin 13.0 g/dL Hematocrit 39.8 % Mean Corpuscular Volume 85.4 fL Mean Corpuscular Hemoglobin 27.9 pg Mean Corpuscular Hemoglobin Concent 32.7 g/dL Red Cell Distribution Width 14.2 % Platelet Count 268 10^3/uL Mean Platelet Volume 10.3 fL Neutrophils (%) (Auto) 76.8 % Lymphocytes (%) (Auto) 14.1 % Monocytes (%) (Auto) 8.8 % Neutrophils # (Auto) 6.4 10^3/uL Lymphocytes # (Auto) 1.18 10^3/uL1 Monocytes # (Auto) 0.7 10^3/uL Absolute Immature Granulocyte (auto 0.02 10^3 u/L Absolute Eosinophils (auto) 0.0 10^3/uL Immature Granulocytes % 0.20 % Eosinophils % 0.0 % Basophils % 0.1 % Basophils # 0.0 10^3/uL Sodium Level 145 mmol/L Potassium Level 3.6 mmol/L Chloride Level 109.0 mmol/L Carbon Dioxide Level 26.1 mmol/L Anion Gap 13.5 Blood Urea Nitrogen 20 mg/dL Creatinine 1.04 mg/dL Estimated GFR () 61.1 Est GFR (CKD-EPI)(Non-Afr Citizen Of [place]) 50.5 BUN/Creatinine Ratio 19.0 Glucose Level 108 mg/dL Calcium Level 8.6 mg/dL Phosphorus Level 2.7 mg/dL Magnesium Level 1.8 mg/dL Total Bilirubin 0.2 mg/dL Aspartate Amino Transf (AST/SGOT) 27 U/L Alanine Aminotransferase (ALT/SGPT) 25 U/L Alkaline Phosphatase 94 U/L Pro-B-Type Natriuretic Peptide 150 pg/mL Total Protein 6.6 g/dL Albumin 3.0 g/dL Globulin 3.6 Albumin/Globulin Ratio 0.833 Current Medications Medications (Trade) Dose Ordered Sig/Khoi Route PRN Reason Start Time Stop Time Status Last Admin Dose Admin Amlodipine Besylate (Norvasc) 5 mg DAILY PO 01/08/20 09:00 02/07/20 08:59 01/09/20 08:41 Aspirin (Aspirin Ec) 81 mg DAILY PO 01/08/20 09:00 02/07/20 08:59 01/09/20 08:41 Atorvastatin Calcium (Lipitor) 40 mg HS PO 01/08/20 21:00 01/09/20 09:17 DC 01/08/20 21:26 Clopidogrel Bisulfate (Plavix) 75 mg DAILY PO 01/08/20 09:00 02/07/20 08:59 01/09/20 08:41 Losartan Potassium (Cozaar) 50 mg DAILY PO 01/08/20 09:00 02/07/20 08:59 01/09/20 08:42 Pantoprazole Sodium (Protonix) 40 mg DAILY PO 01/08/20 09:00 02/07/20 08:59 01/09/20 08:41 Acetaminophen (Tylenol) 1,000 mg Q6H PRN PO pain or fever 01/08/20 01:00 02/07/20 00:59 Morphine Sulfate (Morphine Sulfate) 2 mg Q4H PRN IV PAIN SEVER 01/08/20 01:00 02/07/20 00:59 Ondansetron HCl (Zofran) 4 mg Q4H PRN IV NAUSEA / VOMITING 01/08/20 01:00 02/07/20 00:59 Albuterol Sulfate (Ventolin) 2.5 mg RTQ4 IH 01/08/20 01:00 01/08/20 01:10 DC Albuterol Sulfate (Ventolin) 2.5 mg Q2 PRN IH SOB / wheezing 01/08/20 01:00 01/08/20 01:10 DC Ipratropium [place] (Atrovent) 0.5 mg Q4 IH 01/08/20 04:00 01/08/20 01:10 DC Ipratropium [place] (Atrovent) 0.5 mg Q2 PRN IH SOB / wheezing 01/08/20 01:00 01/08/20 01:10 DC Remdesivir (Eua) 200 mg/Sodium Chloride 250 ml @ 215.517 mls/hr OT ONCE IV 01/08/20 09:00 01/08/20 10:10 DC 01/08/20 09:00 Remdesivir (Eua) 100 mg/Sodium Chloride 250 ml @ 250 mls/hr DAILY IV 01/09/20 09:00 02/08/20 08:59 01/09/20 09:55 Ceftriaxone Sodium 1000 mg/ Sodium Chloride 100 ml @ 100 mls/hr Q24HRS IV 01/08/20 01:00 02/07/20 00:59 01/09/20 00:30 Azithromycin 500 mg/Sodium Chloride 250 ml @ 175 mls/hr Q24HRS IV 01/08/20 01:00 02/07/20 00:59 01/09/20 00:30 Potassium Chloride 200 ml @ 50 mls/hr OT IV 01/08/20 01:00 01/08/20 04:59 DC 01/08/20 01:58 Heparin Sodium (Porcine) (Heparin) 5,000 unit Q8HR SQ 01/08/20 06:00 02/07/20 05:59 01/09/20 13:48 Sodium Chloride 1,000 ml @ 75 mls/hr [id number] IV 01/08/20 01:30 02/07/20 01:29 01/09/20 17:46 Lactobacillus Acidophilus (Bacid) 1 each TIDM PO 01/08/20 08:00 02/07/20 07:59 01/09/20 17:46 Guaifenesin (Mucinex) 600 mg BID PO 01/08/20 09:00 02/07/20 08:59 01/09/20 08:41 Sodium Chloride 100 ml @ ud STK-MED ONCE IV 01/08/20 01:06 01/08/20 01:08 DC Sodium Chloride 500 ml @ ud STK-MED ONCE IV 01/08/20 01:06 01/08/20 01:08 DC Sodium Chloride 250 ml @ ud STK-MED ONCE IV 01/08/20 01:07 01/08/20 01:09 DC Ceftriaxone Sodium (Rocephin) 1,000 mg STK-MED ONCE .ROUTE 01/08/20 01:07 01/08/20 01:09 DC Albuterol/ Ipratropium (Combivent Respimat 20-100 Mcg) 1 inh RTQ4 01/08/20 05:00 02/07/20 04:59 01/09/20 17:00 Albuterol/ Ipratropium (Combivent Respimat 20-100 Mcg) 120 inh STK-MED ONCE 01/08/20 01:35 01/08/20 01:37 DC Ascorbic Acid (Vitamin C) 500 mg DAILY PO 01/08/20 09:00 02/07/20 08:59 01/09/20 08:41 Zinc Sulfate (Zinc Sulfate) 220 mg DAILY PO 01/08/20 09:00 02/07/20 08:59 01/09/20 08:41 Heparin Sodium (Porcine) (Heparin) 5,000 unit STK-MED ONCE .ROUTE 01/08/20 04:24 01/08/20 04:26 DC Losartan Potassium (Cozaar) 50 mg STK-MED ONCE .ROUTE 01/08/20 07:42 01/08/20 07:44 DC Aspirin (Aspirin) 81 mg STK-MED ONCE .ROUTE 01/08/20 07:42 01/08/20 07:44 DC Ascorbic Acid (Vitamin C) 500 mg STK-MED ONCE .ROUTE 01/08/20 07:42 01/08/20 07:44 DC Guaifenesin (Mucinex) 600 mg STK-MED ONCE PO 01/08/20 07:42 01/08/20 07:44 DC Pantoprazole Sodium (Protonix) 40 mg STK-MED ONCE PO 01/08/20 07:43 01/08/20 07:45 DC Amlodipine Besylate (Norvasc) 5 mg STK-MED ONCE .ROUTE 01/08/20 07:43 01/08/20 07:46 DC Clopidogrel Bisulfate (Plavix) 75 mg STK-MED ONCE .ROUTE 01/08/20 07:44 01/08/20 07:46 DC Atorvastatin Calcium (Lipitor) 40 mg HS PO 01/09/20 21:00 02/07/20 20:59 Course Sepsis Screening Results: Posi: POSITIVE Sepsis Qualifier/Stage: SEPSIS RISK DATE SEEN BY PHYSICIAN: Jan 09, 2020 Duration or Total Time Spent w: 45 Vitals & review Data Vital Sign - Last 24 Hours 01/08/20 01/08/20 01/08/20 01/08/20 20:30 20:45 21:00 21:15 Pulse 59 59 60 60 Resp 24 14 23 19 B/P (MAP) 125/58 (80) 124/43 (70) 115/58 (77) 130/62 (84) Pulse Ox 93 94 92 92 01/08/20 01/08/20 01/08/20 01/08/20 21:30 21:45 23:00 23:15 Pulse 55 56 59 57 Resp 24 22 30 24 B/P (MAP) 127/60 (82) 138/108 (118) 134/67 (89) 133/69 (90) Pulse Ox 95 96 93 92 01/08/20 01/08/20 01/09/20 01/09/20 23:30 23:45 00:00 00:00 Pulse 57 56 57 Resp 25 22 22 B/P (MAP) 131/69 (89) 140/62 (88) 139/59 (85) Pulse Ox 93 92 95 O2 Delivery Nasal Cannula O2 Flow Rate 4.00 01/09/20 01/09/20 01/09/20 01/09/20 00:15 00:30 00:45 01:00 Pulse 59 59 61 56 Resp 22 24 25 22 B/P (MAP) 132/62 (85) 127/65 (85) Pulse Ox 91 91 92 96 9/29/20 9/29/20 9/29/20 9/29/20 01:00 01:15 01:30 01:45 Pulse 57 58 61 58 Resp 23 B/P (MAP) 153/66 (95) 108/69 (82) 128/47 (74) Pulse Ox 92 92 91 92 01/09/20 01/09/20 01/09/20 01/09/20 02:00 02:15 02:30 02:45 Pulse 61 61 60 59 Resp 26 B/P (MAP) 139/64 (89) 128/63 (84) 130/61 (84) 141/58 (85) Pulse Ox 93 93 94 91 01/09/20 01/09/20 01/09/20 01/09/20 03:00 03:15 03:30 03:45 Pulse 59 59 56 57 Resp 22 B/P (MAP) 138/58 (84) 131/64 (86) 131/60 (83) 133/62 (85) Pulse Ox 95 92 92 92 01/09/20 01/09/20 01/09/20 01/09/20 04:00 04:15 04:30 04:45 Pulse 57 56 56 57 Resp 22 B/P (MAP) 139/61 (87) 140/65 (90) 134/62 (86) 144/65 (91) Pulse Ox 92 92 89 89 01/09/20 01/09/20 01/09/20 01/09/20 04:46 05:00 05:15 05:30 Pulse 59 59 70 57 Resp 22 B/P (MAP) 147/69 (95) 141/68 (92) 149/64 (92) Pulse Ox 91 95 92 93 01/09/20 01/09/20 01/09/20 01/09/20 05:45 05:53 06:00 06:15 Temp 98.6 Pulse 55 56 59 Resp 23 B/P (MAP) 146/69 (94) Pulse Ox 93 94 95 O2 Delivery Nasal Cannula O2 Flow Rate 4.00 01/09/20 01/09/20 01/09/20 01/09/20 06:45 07:00 07:15 07:30 Pulse 56 57 57 58 Resp 23 22 23 Pulse Ox 92 91 92 90 01/09/20 01/09/20 01/09/20 01/09/20 07:45 08:00 08:02 08:15 Temp 99.0 Pulse 58 58 61 59 Resp 23 20 13 25 B/P (MAP) 142/73 (96) 150/64 (92) Pulse Ox 93 88 94 89 01/09/20 01/09/20 01/09/20 01/09/20 08:30 08:30 08:41 08:42 Pulse 60 60 Resp 15 B/P (MAP) 144/66 (92) 144/66 144/66 Pulse Ox 94 O2 Delivery Nasal Cannula O2 Flow Rate 4.00 01/09/20 01/09/20 01/09/20 01/09/20 08:45 09:00 09:15 09:27 Pulse 61 64 64 59 Resp 23 25 23 15 B/P (MAP) 153/75 (101) 151/81 (104) 154/97 (116) Pulse Ox 90 86 89 92 O2 Delivery Nasal Cannula O2 Flow Rate 3.00 FiO2 32 01/09/20 01/09/20 01/09/20 01/09/20 09:28 09:30 09:30 09:45 Pulse 68 59 68 Resp 15 26 15 18 B/P (MAP) 126/84 (98) 146/72 (96) Pulse Ox 92 83 92 87 01/09/20 01/09/20 01/09/20 01/09/20 10:00 10:15 10:31 10:45 Pulse 65 64 63 67 Resp 16 16 26 24 B/P (MAP) 168/58 (94) 146/67 (93) 140/61 (87) 118/49 (72) Pulse Ox 90 87 90 88 01/09/20 01/09/20 01/09/20 01/09/20 11:01 11:15 11:31 11:45 Pulse 66 68 67 67 Resp 16 17 21 20 B/P (MAP) 149/64 (92) 157/75 (102) 145/73 (97) 142/72 (95) Pulse Ox 89 92 89 91 01/09/20 01/09/20 01/09/20 01/09/20 12:00 12:15 12:30 12:32 Pulse 66 70 68 Resp 27 28 22 B/P (MAP) 159/74 (102) 143/52 (82) 133/55 (81) Pulse Ox 91 89 92 O2 Delivery Nasal Cannula O2 Flow Rate 4.00 01/09/20 01/09/20 01/09/20 01/09/20 12:45 13:00 13:15 13:31 Temp 98.7 Pulse 66 65 67 67 Resp 22 B/P (MAP) 129/69 (89) 133/62 (85) 122/56 (78) 139/73 (95) Pulse Ox 92 90 94 91 01/09/20 01/09/20 01/09/20 01/09/20 13:50 14:00 14:15 14:30 Pulse 59 67 66 65 Resp 15 15 17 25 B/P (MAP) 133/64 (87) 120/53 (75) 124/60 (81) Pulse Ox 92 90 92 91 01/09/20 01/09/20 01/09/20 01/09/20 14:45 15:00 15:15 15:16 Pulse 64 64 64 Resp 24 24 24 15 B/P (MAP) 138/74 (95) 130/60 (83) 137/63 (87) Pulse Ox 91 89 92 92 01/09/20 01/09/20 01/09/20 01/09/20 15:30 15:45 16:00 16:15 Pulse 65 64 59 59 Resp 21 B/P (MAP) 141/63 (89) 132/69 (90) 126/53 (77) 114/60 (78) Pulse Ox 88 87 89 89 01/09/20 01/09/20 01/09/20 01/09/20 16:30 16:45 16:45 17:00 Temp 98.6 Pulse 61 59 61 Resp 23 22 B/P (MAP) 131/56 (81) 131/58 (82) Pulse Ox 94 91 91 O2 Delivery Nasal Cannula O2 Flow Rate 4.00 01/09/20 01/09/20 01/09/20 01/09/20 17:01 17:15 17:16 17:30 Pulse 61 57 58 58 Resp 23 22 21 26 B/P (MAP) 135/69 (91) 132/54 (80) 128/66 (86) Pulse Ox 90 88 92 92 01/09/20 01/09/20 01/09/20 01/09/20 17:45 17:46 17:46 18:00 Pulse 60 61 61 59 Resp 38 15 23 27 B/P (MAP) 142/99 (113) 150/71 (97) Pulse Ox 93 92 92 93 01/09/20 01/09/20 01/09/20 01/09/20 18:15 18:30 18:45 19:00 Pulse 58 63 65 67 Resp 19 21 22 23 B/P (MAP) 113/64 (80) 128/72 (90) Pulse Ox 95 86 92 94 01/09/20 01/09/20 01/09/20 19:15 19:30 19:49 Temp 98.6 Pulse 62 61 Resp 16 21 B/P (MAP) 122/59 (80) Pulse Ox 91 95 O2 Delivery Nasal Cannula O2 Flow Rate 4.00 Intake and Output 01/09/20 07:00 Intake Total 1622 ml Output Total 1350 ml Balance 272 ml Laboratory Tests Test 01/08/20 01:35 01/08/20 04:45 01/08/20 05:09 01/09/20 04:23 Bedside Glucose 131 Urine Collection Type VOID Urine Color YELLOW Urine Appearance HAZY Urine Bilirubin NEGATIVE MG/DL Urine Ketones NEGATIVE Urine Specific [place] 1.020 Urine pH 6.0 Urine Protein TRACE Urine Urobilinogen NORMAL Urine Nitrate NEGATIVE Urine Leukocyte Esterase 25 /uL TRACE Urine Blood TRACE Urine RBC 0-2 RBC/HPF Urine WBC 10-25 WBC/HPF Urine Squamous Epithelial Cells FEW #/HPF Urine Bacteria FEW Urine Glucose NEGATIVE White Blood Count 3.7 10^3/uL 8.4 10^3/uL Red Blood Count 4.95 10^6/uL 4.66 10^6/uL Hemoglobin 13.7 g/dL 13.0 g/dL Hematocrit 42.3 % 39.8 % Mean Corpuscular Volume 85.5 fL 85.4 fL Mean Corpuscular Hemoglobin 27.7 pg 27.9 pg Mean Corpuscular Hemoglobin Concent 32.4 g/dL 32.7 g/dL Red Cell Distribution Width 14.1 % 14.2 % Platelet Count 256 10^3/uL 268 10^3/uL Mean Platelet Volume 10.4 fL 10.3 fL Neutrophils (%) (Auto) 76.5 % 76.8 % Lymphocytes (%) (Auto) 19.1 % 14.1 % Monocytes (%) (Auto) 3.8 % 8.8 % Neutrophils # (Auto) 2.8 10^3/uL 6.4 10^3/uL Lymphocytes # (Auto) 0.71 10^3/uL1 1.18 10^3/uL1 Monocytes # (Auto) 0.1 10^3/uL 0.7 10^3/uL Absolute Immature Granulocyte (auto 0.01 10^3 u/L 0.02 10^3 u/L Absolute Eosinophils (auto) 0.0 10^3/uL 0.0 10^3/uL Immature Granulocytes % 0.30 % 0.20 % Eosinophils % 0.0 % 0.0 % Basophils % 0.3 % 0.1 % Basophils # 0.0 10^3/uL 0.0 10^3/uL Prothrombin Time 10.4 SEC Prothrombin Time INR (Non-Therap) 1.0 Activated Partial Thromboplast Time 25.2 SEC Fibrinogen 472 mg/dL Sodium Level 136 mmol/L 145 mmol/L Potassium Level 3.7 mmol/L 3.6 mmol/L Chloride Level 103.0 mmol/L 109.0 mmol/L Carbon Dioxide Level 22.7 mmol/L 26.1 mmol/L Anion Gap 14.0 13.5 Blood Urea Nitrogen 17 mg/dL 20 mg/dL Creatinine 1.09 mg/dL 1.04 mg/dL Estimated GFR () 57.9 61.1 Est GFR (CKD-EPI)(Non-Afr Citizen Of [place]) 47.8 50.5 BUN/Creatinine Ratio 15.0 19.0 Glucose Level 154 mg/dL 108 mg/dL Calcium Level 8.9 mg/dL 8.6 mg/dL Phosphorus Level 3.3 mg/dL 2.7 mg/dL Magnesium Level 1.8 mg/dL 1.8 mg/dL Ferritin 101 ng/mL Total Bilirubin 0.3 mg/dL 0.2 mg/dL Aspartate Amino Transf (AST/SGOT) 36 U/L 27 U/L Alanine Aminotransferase (ALT/SGPT) 32 U/L 25 U/L Alkaline Phosphatase 97 U/L 94 U/L Lactate Dehydrogenase 209 U/L C-Reactive Protein 8.47 mg/dL Pro-B-Type Natriuretic Peptide 103 pg/mL 150 pg/mL Total Protein 7.6 g/dL 6.6 g/dL Albumin 3.2 g/dL 3.0 g/dL Globulin 4.4 3.6 Albumin/Globulin Ratio 0.727 0.833 Triglycerides Level 61 mg/dL Cholesterol Level 93 mg/dL LDL Cholesterol, Calculated 32.8 VLDL Cholesterol, Calculated 12.2 HDL Cholesterol 48 mg/dL Cholesterol Ratio (LDL/HDL) 0.6 Cholesterol/HDL Ratio [id number] Vitamin B12 Level 1018 pg/mL Procalcitonin < 0.05 ng/mL Thyroid Stimulating Hormone (TSH) 0.934 mIU/mL Current Medications Medications (Trade) Dose Ordered Sig/Khoi PRN Reason Start Time Stop Time Status Last Admin Acetaminophen (Tylenol) 1,000 mg Q6H PRN pain or fever 01/08/20 01:00 02/07/20 00:59 Albuterol/ Ipratropium (Combivent Respimat 20-100 Mcg) 1 inh RTQ4 01/08/20 05:00 02/07/20 04:59 01/09/20 17:00 Amlodipine Besylate (Norvasc) 5 mg DAILY 01/08/20 09:00 02/07/20 08:59 01/09/20 08:41 Ascorbic Acid (Vitamin C) 500 mg DAILY 01/08/20 09:00 02/07/20 08:59 01/09/20 08:41 Aspirin (Aspirin Ec) 81 mg DAILY 01/08/20 09:00 02/07/20 08:59 01/09/20 08:41 Atorvastatin Calcium (Lipitor) 40 mg HS 01/09/20 21:00 02/07/20 20:59 Azithromycin 500 mg/Sodium Chloride 250 ml @ 175 mls/hr Q24HRS 01/08/20 01:00 02/07/20 00:59 01/09/20 00:30 Ceftriaxone Sodium 1000 mg/ Sodium Chloride 100 ml @ 100 mls/hr Q24HRS 01/08/20 01:00 02/07/20 00:59 01/09/20 00:30 Clopidogrel Bisulfate (Plavix) 75 mg DAILY 01/08/20 09:00 02/07/20 08:59 01/09/20 08:41 Guaifenesin (Mucinex) 600 mg BID 01/08/20 09:00 02/07/20 08:59 01/09/20 08:41 Heparin Sodium (Porcine) (Heparin) 5,000 unit Q8HR 01/08/20 06:00 02/07/20 05:59 01/09/20 13:48 Lactobacillus Acidophilus (Bacid) 1 each TIDM 01/08/20 08:00 02/07/20 07:59 01/09/20 17:46 Losartan Potassium (Cozaar) 50 mg DAILY 01/08/20 09:00 02/07/20 08:59 01/09/20 08:42 Morphine Sulfate (Morphine Sulfate) 2 mg Q4H PRN PAIN SEVER 01/08/20 01:00 02/07/20 00:59 Ondansetron HCl (Zofran) 4 mg Q4H PRN NAUSEA / VOMITING 01/08/20 01:00 02/07/20 00:59 Pantoprazole Sodium (Protonix) 40 mg DAILY 01/08/20 09:00 02/07/20 08:59 01/09/20 08:41 Remdesivir (Eua) 100 mg/Sodium Chloride 250 ml @ 250 mls/hr DAILY 01/09/20 09:00 02/08/20 08:59 01/09/20 09:55 Sodium Chloride 1,000 ml @ 75 mls/hr [id number] 01/08/20 01:30 02/07/20 01:29 01/09/20 17:46 Zinc Sulfate (Zinc Sulfate) 220 mg DAILY 01/08/20 09:00 02/07/20 08:59 01/09/20 08:41 Sepsis Infection Criteria Pres: None LEVEL 1 SEPSIS INFECTION CRITE: ABX Therapy, Flu-Pneumonia LEVEL 2-SIRS (LIST ALL THAT AP: None/Not assessed Cardiovascular Evidence: Not Assessed or None Hematologic Evidence: None/Not assessed Hepatic Evidence: None/Not assessed Metabolic Evidence: None/Not assessed Neurological Evidence: None/Not assessed Respiratory Evidence: Need for O2 to keep>90%, O2 SAT<90room air Renal Evidence: None/Not assessed O2 Sat by Pulse Oximetry: 92 Oxygen Flow Rate: 3.00 Assessment/Plan Assessment/Plan Assessment/Plan Problems: (1) Acute and chronic respiratory failure Status: Chronic Assessment & Plan: improved ICD Code: J96.20 - Acute and chronic respiratory failure, unspecified whether with hypoxia or hypercapnia SNOMED: [id number] (2) COVID-19 Status: Acute Assessment & Plan: 3rd day of Remdesivir treatment continue, improving ICD Code: U07.1 - COVID-19 SNOMED: 624889027 (3) Viral pneumonia Status: Acute Assessment & Plan: Due to covid -19 infection continue with current med regimen ICD Code: J12.9 - Viral pneumonia, unspecified SNOMED: [id number] Plan PROGRESS NOTE 1) Acute Encephalopathy: Back to baseline. Will continue to monitor. 2) Acute Hypoxemic Respiratory Failure: continue with Br Tx's, O2 PRN, and Steroids. Continue aggressive RT protocol. 3) COVID-19 infection: positive test.Continue Tx with Remdesivir and Decad alexander 6mg iv daily 4) BL Pneumonia: Will continue Rocephin and Azithromycin, pending Sputum Cx results. 5) UTI (POA): Continue Rocephin and follow up on the Ur Cx results. no urine culture growth 6) Volume Depletion: improved 7) Stool studies negative 8) COPD exacerbation: likely due to covid 19 infection, Will continue Br Tx's, O2 PRN, and steroids. started on Remdesivire 9) HTN: Currently stable on her home meds. Monitor for now. 10) Generalized Weakness: Will request a PT evaluation once pt is more stable. 11) GI and DVT prophylaxis: Will continue Protonix and Heparin. RENNY ARTEAGA MD Jan 11, 2020 17:58
--- NOTE | 2020-01-11 18:10 | NUR ---
[facility] [place] ON TELEPHONE INVESTIGATING SYMPTOMS AND PERSONS IN CONTACT WITH PATIENT PRIOR TO ADMISSION.
[2020-01-11] MEDS: LIPITOR PO SCH (21:31)
[2020-01-12] VITALS (63 sets, daily range): BP systolic 107–181; BP diastolic 54–119
[2020-01-12] MEDS: COMBIVENT RESPIMAT 20-100 MCG IH SCH ×6 (01:00→21:00)
[2020-01-12] MEDS: ROCEPHIN 1,000 MG in NS 100ML 100 ML IV SCH (01:03)
[2020-01-12] MEDS: ZITHROMAX 500 MG in NS 250ML 250 ML IV SCH (02:20)
[2020-01-12] MEDS: HEPARIN SQ SCH ×3 (05:55→21:52)
[2020-01-12 07:47] LABS: BASOPHIL % 0.1 % (0.0-0.2); MEAN CORP HGB 27.4 pg (26-34); MONOCYTES # 0.7 10^3/uL (0.3-0.8); NEUTROPHIL # 4.3 10^3/uL (1.8-7.7); PLATELET COUNT 284 10^3/uL (150-400); RED CELL DISTRIBUTION WIDTH 14.1 % (11.5-14.5)
[2020-01-12 07:58] LABS: CALCIUM 8.8 mg/dL (8.4-10.5); CARBON DIOXIDE 26.7 mmol/L (20.0-32)
[2020-01-12] MEDS: BACID PO SCH ×3 (08:00→18:51)
[2020-01-12] MEDS: DECADRON IV SCH (08:14)
[2020-01-12] MEDS: ASPIRIN EC PO SCH (08:16)
[2020-01-12] MEDS: COZAAR PO SCH (08:16)
[2020-01-12] MEDS: MUCINEX PO SCH ×2 (08:17→21:51)
[2020-01-12] MEDS: NORVASC PO SCH (08:17)
[2020-01-12] MEDS: ZINC SULFATE PO SCH (08:18)
[2020-01-12] MEDS: PROTONIX PO SCH (08:18)
[2020-01-12] MEDS: PLAVIX PO SCH (08:18)
[2020-01-12] MEDS: VITAMIN C PO SCH (08:18)
[2020-01-12] MEDS ORDERED: MAG-OX PO STA (08:47)
[2020-01-12] MEDS ORDERED: POTASSIUM CHLORIDE PO STA (08:47)
[2020-01-12] MEDS: NS IV SCH (09:00)
[2020-01-12] MEDS: REMDESIVIR IV SCH (09:00)
[2020-01-12] MEDS ORDERED: MAG-OX ONE (10:04)
[2020-01-12] MEDS ORDERED: POTASSIUM CHLORIDE ONE (10:05)
[2020-01-12] MEDS: NS 1000ML 1,000 ML IV SCH (12:10)
--- NOTE | 2020-01-12 16:23 | PRM.PN ---
Subjective Subjective Date: Jan 12, 2020 Time: 09:00 Subjective Patient seen and examined says she is doing much better Denies fever or chills. VTE VTE Risk Total Score: >5 VTE Risk Score VTE Risk: Score 0-1 = Low Risk (Aggressive mobilization; early ambulation; no VTE prophylaxis required) Score 2: Moderate Risk (Intermittent/Pneumatic Compression Device OR Lovenox/Heparin/Coumadin) Score 3-4: High Risk (Intermittent/Pneumatic Compression Device AND Lovenox/Heparin/Coumadin) Score > or =5: Highest Risk (Intermittent/Pneumatic Compression Device AND Lovenox/Heparin/Coumadin) Antico:Hep/LMWH/Coum/Xarelto: No Review of Systems Constitutional: No: Fever, Chills, Sweats, Weakness, Malaise Eyes: No: Pain, Vision change, Conjunctivae inflammation, Eyelid inflammation, Redness ENT: No: Ear pain, Ear discharge, Nose pain, Nose discharge, Nose congestion, Mouth pain, Mouth swelling, Throat pain, Throat swelling Respiratory: Shortness of breath; No: Cough, Dry, SOB with excertion, Wheezing, Hemoptysis, Pleuritic Pain, Sputum, Wheezing Cardiovascular: No: Chest Pain, Palpitations, Orthopnea, Paroxysmal Noc. Dyspn ea, Edema, Lt Headedness Gastrointestinal: No: Nausea, Vomiting, Abdominal Pain, Diarrhea, Constipation, Melena, Hematochezia Genitourinary: No Dysuria, No Frequency, No Incontinence, No Hematuria, No Retention Musculoskeletal: No: neck pain, shoulder pain, arm pain, back pain, hand pain, leg pain, foot pain Skin: No: Rash, Lesions, Jaundice, Bruising Neurological: No: Weakness, Numbness, Incoordination, Change in speech, Confusion, Seizures Allergies: Coded Allergies: No Known Allergies (Unverified , 02/13/19) Scheduled Amlodipine Besylate (Amlodipine Besylate), 1 TAB PO DAILY Amoxicillin (Amoxicillin), 500 MG PO Q8HR Aspirin (Aspirin Ec), 81 MG PO DAILY Atorvastatin 20MG (Lipitor 20MG), 40 MG PO HS Clopidogrel Bisulfate (Clopidogrel), 75 MG PO DAILY Losartan Potassium (Cozaar), 50 MG PO DAILY Nystatin (Nystatin), 15 GM TP BID Pantoprazole Sodium (Protonix), 1 TAB PO DAILY Paroxetine Hcl (Paroxetine Hcl), 1 TAB PO DAILY Ursodiol (Karen), 1 TAB PO BID Scheduled PRN Cyanocobalamin (Vitamin B-12) (Cyanocobalamin Injection), 1,000 MCG IJ qmonth PRN for vit def Objective Vitals and I/O Vital Sign - Last 24 Hours 01/11/20 01/11/20 01/11/20 01/11/20 16:30 16:45 16:46 17:00 Pulse 64 65 63 Resp 18 20 18 B/P (MAP) 145/86 (105) 154/79 (104) Pulse Ox 94 94 94 O2 Delivery Nasal Cannula O2 Flow Rate 3.00 01/11/20 01/11/20 01/11/20 01/11/20 17:15 17:30 17:47 18:00 Pulse 63 64 63 65 Resp 18 19 19 18 B/P (MAP) 156/86 (109) 158/95 (116) 148/96 (113) 144/87 (106) Pulse Ox 95 92 94 91 01/11/20 01/11/20 01/11/20 01/11/20 18:15 18:17 18:30 18:31 Pulse 61 65 64 62 Resp 17 17 18 17 B/P (MAP) 159/64 (95) Pulse Ox 89 91 93 93 01/11/20 01/11/20 01/11/20 01/11/20 18:45 19:00 19:15 19:30 Pulse 63 66 64 64 Resp 18 17 23 26 B/P (MAP) 160/84 (109) 189/94 (125) 191/85 (120) Pulse Ox 93 94 92 93 01/11/20 01/11/20 01/11/20 01/11/20 19:46 20:00 20:00 20:16 Temp 96.4 Pulse 64 64 62 Resp 25 21 25 B/P (MAP) 177/65 (102) 185/71 (109) 177/99 (125) Pulse Ox 93 93 94 O2 Delivery Nasal Cannula O2 Flow Rate 1.50 01/11/20 01/11/20 01/11/20 01/11/20 20:30 20:45 21:00 21:00 Pulse 65 62 60 60 Resp 20 25 26 26 B/P (MAP) 192/112 (138) 159/87 (111) 163/75 (104) Pulse Ox 93 91 89 89 O2 Delivery Nasal Cannula O2 Flow Rate 2.00 FiO2 95 01/11/20 01/11/20 01/11/20 01/11/20 21:15 21:30 21:45 22:00 Pulse 61 60 60 61 Resp 19 28 20 24 B/P (MAP) 174/101 (125) 175/82 (113) 170/89 (116) 170/98 (122) Pulse Ox 91 90 91 92 01/11/20 01/11/20 01/11/20 01/11/20 22:15 22:30 22:31 22:45 Pulse 64 64 64 60 Resp 21 27 24 21 B/P (MAP) 166/84 (111) 154/75 (101) 167/73 (104) Pulse Ox 92 91 91 92 01/11/20 01/11/20 01/11/20 01/11/20 23:00 23:02 23:15 23:30 Pulse 61 65 59 57 Resp 28 18 24 24 B/P (MAP) 148/75 (99) 153/66 (95) Pulse Ox 93 92 89 91 01/11/20 01/12/20 01/12/20 01/12/20 23:45 00:00 00:03 01:00 Temp 97.1 Pulse 61 55 55 Resp 23 22 22 B/P (MAP) 156/69 (98) 163/68 (99) Pulse Ox 90 90 90 O2 Delivery Nasal Cannula O2 Flow Rate 1.50 01/12/20 01/12/20 01/12/20 01/12/20 02:15 02:30 02:45 03:00 Pulse 56 56 57 58 Resp 38 25 19 13 B/P (MAP) 152/62 (92) 163/77 (105) 147/60 (89) 152/114 (127) Pulse Ox 91 91 90 93 01/12/20 01/12/20 01/12/20 01/12/20 03:15 03:30 03:45 04:00 Pulse 63 62 63 63 Resp 22 18 20 18 B/P (MAP) 156/91 (112) 169/79 (109) 175/80 (111) 180/80 (113) Pulse Ox 91 91 92 90 01/12/20 01/12/20 01/12/20 01/12/20 04:05 04:15 04:30 04:45 Temp 97.6 Pulse 57 56 61 Resp 17 29 14 B/P (MAP) 166/76 (106) 167/87 (113) Pulse Ox 90 92 93 O2 Delivery Nasal Cannula O2 Flow Rate 1.50 01/12/20 01/12/20 01/12/20 01/12/20 04:47 04:57 04:59 05:00 Pulse 63 60 61 60 Resp 25 20 26 22 B/P (MAP) 170/65 (100) 181/83 (115) 170/79 (109) 168/83 (111) Pulse Ox 91 92 92 91 01/12/20 01/12/20 01/12/20 01/12/20 05:00 05:15 05:30 05:45 Pulse 55 58 56 57 Resp 22 24 18 16 B/P (MAP) 149/75 (99) 169/58 (95) 160/66 (97) Pulse Ox 90 87 92 91 01/12/20 01/12/20 01/12/20 01/12/20 06:00 06:15 07:00 07:15 Pulse 57 57 57 59 Resp 20 21 23 23 B/P (MAP) 168/69 (102) 153/60 (91) 155/63 (93) 151/58 (89) Pulse Ox 90 89 90 87 01/12/20 01/12/20 01/12/20 01/12/20 07:30 07:45 08:00 08:15 Pulse 55 61 58 63 Resp 18 16 20 17 B/P (MAP) 161/71 (101) 167/84 (111) 156/68 (97) 160/78 (105) Pulse Ox 88 92 89 90 01/12/20 01/12/20 01/12/20 01/12/20 08:16 08:17 08:30 08:30 Temp 97.5 Pulse 62 63 Resp 18 B/P (MAP) 164/77 164/77 172/73 (106) Pulse Ox 91 O2 Delivery Nasal Cannula O2 Flow Rate 1.50 01/12/20 01/12/20 01/12/20 01/12/20 08:45 08:54 08:55 08:56 Pulse 62 63 63 Resp 23 18 15 15 B/P (MAP) 164/77 (106) Pulse Ox 91 92 92 92 O2 Delivery Nasal Cannula O2 Flow Rate 2.00 10/2/01/12/20 01/12/20 01/12/20 09:00 09:15 09:46 10:00 Pulse 70 71 71 70 Resp 16 21 14 11 B/P (MAP) 172/78 (109) 133/72 (92) 128/67 (87) 135/68 (90) Pulse Ox 91 88 90 94 01/12/20 01/12/20 01/12/20 01/12/20 10:16 10:30 10:45 11:04 Pulse 65 60 70 64 Resp 19 20 15 13 B/P (MAP) 129/60 (83) 144/65 (91) 149/71 (97) 142/70 (94) Pulse Ox 94 94 95 94 01/12/20 01/12/20 01/12/20 01/12/20 11:15 11:30 11:45 12:00 Pulse 68 66 64 68 Resp 17 20 20 26 B/P (MAP) 161/119 (133) 163/77 (105) 156/89 (111) 159/77 (104) Pulse Ox 94 94 92 95 01/12/20 01/12/20 01/12/20 01/12/20 12:15 12:30 12:45 12:45 Pulse 66 68 66 Resp 24 23 21 B/P (MAP) 161/76 (104) 152/81 (104) 152/77 (102) Pulse Ox 93 93 93 O2 Delivery Nasal Cannula O2 Flow Rate 1.50 01/12/20 01/12/20 01/12/20 01/12/20 13:00 13:06 13:56 14:00 Pulse 67 71 75 74 Resp 21 18 25 20 B/P (MAP) 160/85 (110) 124/66 (85) 130/64 (86) Pulse Ox 96 95 87 95 01/12/20 01/12/20 01/12/20 14:15 14:30 14:45 Pulse 74 71 67 Resp 20 25 16 B/P (MAP) 107/67 (80) 126/54 (78) 122/57 (78) Pulse Ox 92 94 90 Intake and Output 01/12/20 07:00 Intake Total 2325 ml Output Total 3850 ml Balance -1525 ml General: Alert, Oriented X3, Cooperative, No acute distress HEENT: Atraumatic, PERRLA, EOMI, Mucous membr. moist/pink Neck: Supple, No JVD, No thyromegaly, +2 carotid pulse wo bruit Lungs: Clear to auscultation, Normal air movement Heart: Regular rate, Normal S1, Normal S2, No murmurs Abdomen: Normal bowel sounds, Soft, No tenderness, No masses Extremities: No clubbing, No cyanosis, No edema, Normal pulses, No tenderness/swelling Skin: No rashes, No breakdown, No significant lesion Neuro: Normal gait, Normal speech, Strength at 5/5 X4 ext, Normal tone, Sensation intact Psych/Mental Status: Mental status NL, Mood NL All Results(Lab/Rad) Laboratory Tests Test 01/09/20 04:23 White Blood Count 8.4 10^3/uL Red Blood Count 4.66 10^6/uL Hemoglobin 13.0 g/dL Hematocrit 39.8 % Mean Corpuscular Volume 85.4 fL Mean Corpuscular Hemoglobin 27.9 pg Mean Corpuscular Hemoglobin Concent 32.7 g/dL Red Cell Distribution Width 14.2 % Platelet Count 268 10^3/uL Mean Platelet Volume 10.3 fL Neutrophils (%) (Auto) 76.8 % Lymphocytes (%) (Auto) 14.1 % Monocytes (%) (Auto) 8.8 % Neutrophils # (Auto) 6.4 10^3/uL Lymphocytes # (Auto) 1.18 10^3/uL1 Monocytes # (Auto) 0.7 10^3/uL Absolute Immature Granulocyte (auto 0.02 10^3 u/L Absolute Eosinophils (auto) 0.0 10^3/uL Immature Granulocytes % 0.20 % Eosinophils % 0.0 % Basophils % 0.1 % Basophils # 0.0 10^3/uL Sodium Level 145 mmol/L Potassium Level 3.6 mmol/L Chloride Level 109.0 mmol/L Carbon Dioxide Level 26.1 mmol/L Anion Gap 13.5 Blood Urea Nitrogen 20 mg/dL Creatinine 1.04 mg/dL Estimated GFR () 61.1 Est GFR (CKD-EPI)(Non-Afr [place] Citizen) 50.5 BUN/Creatinine Ratio 19.0 Glucose Level 108 mg/dL Calcium Level 8.6 mg/dL Phosphorus Level 2.7 mg/dL Magnesium Level 1.8 mg/dL Total Bilirubin 0.2 mg/dL Aspartate Amino Transf (AST/SGOT) 27 U/L Alanine Aminotransferase (ALT/SGPT) 25 U/L Alkaline Phosphatase 94 U/L Pro-B-Type Natriuretic Peptide 150 pg/mL Total Protein 6.6 g/dL Albumin 3.0 g/dL Globulin 3.6 Albumin/Globulin Ratio 0.833 Current Medications Medications (Trade) Dose Ordered Sig/Khoi Route PRN Reason Start Time Stop Time Status Last Admin Dose Admin Amlodipine Besylate (Norvasc) 5 mg DAILY PO 01/08/20 09:00 02/07/20 08:59 01/09/20 08:41 Aspirin (Aspirin Ec) 81 mg DAILY PO 01/08/20 09:00 02/07/20 08:59 01/09/20 08:41 Atorvastatin Calcium (Lipitor) 40 mg HS PO 01/08/20 21:00 01/09/20 09:17 DC 01/08/20 21:26 Clopidogrel Bisulfate (Plavix) 75 mg DAILY PO 01/08/20 09:00 02/07/20 08:59 01/09/20 08:41 Losartan Potassium (Cozaar) 50 mg DAILY PO 01/08/20 09:00 02/07/20 08:59 01/09/20 08:42 Pantoprazole Sodium (Protonix) 40 mg DAILY PO 01/08/20 09:00 02/07/20 08:59 01/09/20 08:41 Acetaminophen (Tylenol) 1,000 mg Q6H PRN PO pain or fever 01/08/20 01:00 02/07/20 00:59 Morphine Sulfate (Morphine Sulfate) 2 mg Q4H PRN IV PAIN SEVER 01/08/20 01:00 02/07/20 00:59 Ondansetron HCl (Zofran) 4 mg Q4H PRN IV NAUSEA / VOMITING 01/08/20 01:00 02/07/20 00:59 Albuterol Sulfate (Ventolin) 2.5 mg RTQ4 IH 01/08/20 01:00 01/08/20 01:10 DC Albuterol Sulfate (Ventolin) 2.5 mg Q2 PRN IH SOB / wheezing 01/08/20 01:00 01/08/20 01:10 DC Ipratropium [place] (Atrovent) 0.5 mg Q4 IH 01/08/20 04:00 01/08/20 01:10 DC Ipratropium [place] (Atrovent) 0.5 mg Q2 PRN IH SOB / wheezing 01/08/20 01:00 01/08/20 01:10 DC Remdesivir (Eua) 200 mg/Sodium Chloride 250 ml @ 215.517 mls/hr OT ONCE IV 01/08/20 09:00 01/08/20 10:10 DC 01/08/20 09:00 Remdesivir (Eua) 100 mg/Sodium Chloride 250 ml @ 250 mls/hr DAILY IV 01/09/20 09:00 02/08/20 08:59 01/09/20 09:55 Ceftriaxone Sodium 1000 mg/ Sodium Chloride 100 ml @ 100 mls/hr Q24HRS IV 01/08/20 01:00 02/07/20 00:59 01/09/20 00:30 Azithromycin 500 mg/Sodium Chloride 250 ml @ 175 mls/hr Q24HRS IV 01/08/20 01:00 02/07/20 00:59 01/09/20 00:30 Potassium Chloride 200 ml @ 50 mls/hr OT IV 01/08/20 01:00 01/08/20 04:59 DC 01/08/20 01:58 Heparin Sodium (Porcine) (Heparin) 5,000 unit Q8HR SQ 01/08/20 06:00 02/07/20 05:59 01/09/20 13:48 Sodium Chloride 1,000 ml @ 75 mls/hr [id number] IV 01/08/20 01:30 02/07/20 01:29 01/09/20 17:46 Lactobacillus Acidophilus (Bacid) 1 each TIDM PO 01/08/20 08:00 02/07/20 07:59 01/09/20 17:46 Guaifenesin (Mucinex) 600 mg BID PO 01/08/20 09:00 02/07/20 08:59 01/09/20 08:41 Sodium Chloride 100 ml @ ud STK-MED ONCE IV 01/08/20 01:06 01/08/20 01:08 DC Sodium Chloride 500 ml @ ud STK-MED ONCE IV 01/08/20 01:06 01/08/20 01:08 DC Sodium Chloride 250 ml @ ud STK-MED ONCE IV 01/08/20 01:07 01/08/20 01:09 DC Ceftriaxone Sodium (Rocephin) 1,000 mg STK-MED ONCE .ROUTE 01/08/20 01:07 01/08/20 01:09 DC Albuterol/ Ipratropium (Combivent Respimat 20-100 Mcg) 1 inh RTQ4 IH 01/08/20 05:00 02/07/20 04:59 01/09/20 17:00 Albuterol/ Ipratropium (Combivent Respimat 20-100 Mcg) 120 inh STK-MED ONCE IH 01/08/20 01:35 01/08/20 01:37 DC Ascorbic Acid (Vitamin C) 500 mg DAILY PO 01/08/20 09:00 02/07/20 08:59 01/09/20 08:41 Zinc Sulfate (Zinc Sulfate) 220 mg DAILY PO 01/08/20 09:00 02/07/20 08:59 01/09/20 08:41 Heparin Sodium (Porcine) (Heparin) 5,000 unit STK-MED ONCE .ROUTE 01/08/20 04:24 01/08/20 04:26 DC Losartan Potassium (Cozaar) 50 mg STK-MED ONCE .ROUTE 01/08/20 07:42 01/08/20 07:44 DC Aspirin (Aspirin) 81 mg STK-MED ONCE .ROUTE 01/08/20 07:42 01/08/20 07:44 DC Ascorbic Acid (Vitamin C) 500 mg STK-MED ONCE .ROUTE 01/08/20 07:42 01/08/20 07:44 DC Guaifenesin (Mucinex) 600 mg STK-MED ONCE PO 01/08/20 07:42 01/08/20 07:44 DC Pantoprazole Sodium (Protonix) 40 mg STK-MED ONCE PO 01/08/20 07:43 01/08/20 07:45 DC Amlodipine Besylate (Norvasc) 5 mg STK-MED ONCE .ROUTE 01/08/20 07:43 01/08/20 07:46 DC Clopidogrel Bisulfate (Plavix) 75 mg STK-MED ONCE .ROUTE 01/08/20 07:44 01/08/20 07:46 DC Atorvastatin Calcium (Lipitor) 40 mg HS PO 01/09/20 21:00 02/07/20 20:59 Course Sepsis Screening Results: Posi: POSITIVE Sepsis Qualifier/Stage: SEPSIS RISK DATE SEEN BY PHYSICIAN: Jan 09, 2020 Duration or Total Time Spent w: 45 Vitals & review Data Vital Sign - Last 24 Hours 01/08/20 01/08/20 01/08/20 01/08/20 20:30 20:45 21:00 21:15 Pulse 59 59 60 60 Resp 24 14 23 19 B/P (MAP) 125/58 (80) 124/43 (70) 115/58 (77) 130/62 (84) Pulse Ox 93 94 92 92 01/08/20 01/08/20 01/08/20 01/08/20 21:30 21:45 23:00 23:15 Pulse 55 56 59 57 Resp 30 24 B/P (MAP) 127/60 (82) 138/108 (118) 134/67 (89) 133/69 (90) Pulse Ox 95 96 93 92 01/08/20 01/08/20 01/09/20 01/09/20 23:30 23:45 00:00 00:00 Pulse 57 56 57 Resp 22 22 B/P (MAP) 131/69 (89) 140/62 (88) 139/59 (85) Pulse Ox 93 92 95 O2 Delivery Nasal Cannula O2 Flow Rate 4.00 01/09/20 01/09/20 01/09/20 01/09/20 00:15 00:30 00:45 01:00 Pulse 59 59 61 56 Resp 24 25 22 B/P (MAP) 132/62 (85) 127/65 (85) Pulse Ox 91 91 92 96 01/09/20 01/09/20 01/09/20 01/09/20 01:00 01:15 01:30 01:45 Pulse 57 58 61 58 Resp 19 23 B/P (MAP) 153/66 (95) 108/69 (82) 128/47 (74) Pulse Ox 92 92 91 92 01/09/20 01/09/20 01/09/20 01/09/20 02:00 02:15 02:30 02:45 Pulse 61 61 60 59 Resp 24 26 B/P (MAP) 139/64 (89) 128/63 (84) 130/61 (84) 141/58 (85) Pulse Ox 93 93 94 91 01/09/20 01/09/20 01/09/20 01/09/20 03:00 03:15 03:30 03:45 Pulse 59 59 56 57 Resp 24 22 B/P (MAP) 138/58 (84) 131/64 (86) 131/60 (83) 133/62 (85) Pulse Ox 95 92 92 92 01/09/20 01/09/20 01/09/20 01/09/20 04:00 04:15 04:30 04:45 Pulse 57 56 56 57 Resp 22 B/P (MAP) 139/61 (87) 140/65 (90) 134/62 (86) 144/65 (91) Pulse Ox 92 92 89 89 01/09/20 01/09/20 01/09/20 01/09/20 04:46 05:00 05:15 05:30 Pulse 59 59 70 57 Resp 23 22 B/P (MAP) 147/69 (95) 141/68 (92) 149/64 (92) Pulse Ox 91 95 92 93 01/09/20 01/09/20 01/09/20 01/09/20 05:45 05:53 06:00 06:15 Temp 98.6 Pulse 55 56 59 Resp 20 23 B/P (MAP) 146/69 (94) Pulse Ox 93 94 95 O2 Delivery Nasal Cannula O2 Flow Rate 4.00 01/09/20 01/09/20 01/09/20 01/09/20 06:45 07:00 07:15 07:30 Pulse 56 57 57 58 Resp 23 22 23 Pulse Ox 92 91 92 90 01/09/20 01/09/20 01/09/20 01/09/20 07:45 08:00 08:02 08:15 Temp 99.0 Pulse 58 58 61 59 Resp 23 20 13 25 B/P (MAP) 142/73 (96) 150/64 (92) Pulse Ox 93 88 94 89 01/09/20 01/09/20 01/09/20 01/09/20 08:30 08:30 08:41 08:42 Pulse 60 60 Resp 15 B/P (MAP) 144/66 (92) 144/66 144/66 Pulse Ox 94 O2 Delivery Nasal Cannula O2 Flow Rate 4.00 01/09/20 01/09/20 01/09/20 01/09/20 08:45 09:00 09:15 09:27 Pulse 61 64 64 59 Resp 23 25 23 15 B/P (MAP) 153/75 (101) 151/81 (104) 154/97 (116) Pulse Ox 90 86 89 92 O2 Delivery Nasal Cannula O2 Flow Rate 3.00 FiO2 32 01/09/20 01/09/20 01/09/20 01/09/20 09:28 09:30 09:30 09:45 Pulse 68 59 68 Resp 15 26 15 18 B/P (MAP) 126/84 (98) 146/72 (96) Pulse Ox 92 83 92 87 01/09/20 01/09/20 01/09/20 01/09/20 10:00 10:15 10:31 10:45 Pulse 65 64 63 67 Resp 16 16 26 24 B/P (MAP) 168/58 (94) 146/67 (93) 140/61 (87) 118/49 (72) Pulse Ox 90 87 90 88 01/09/20 01/09/20 01/09/20 01/09/20 11:01 11:15 11:31 11:45 Pulse 66 68 67 67 Resp 16 17 21 20 B/P (MAP) 149/64 (92) 157/75 (102) 145/73 (97) 142/72 (95) Pulse Ox 89 92 89 91 01/09/20 01/09/20 01/09/20 01/09/20 12:00 12:15 12:30 12:32 Pulse 66 70 68 Resp 28 22 B/P (MAP) 159/74 (102) 143/52 (82) 133/55 (81) Pulse Ox 91 89 92 O2 Delivery Nasal Cannula O2 Flow Rate 4.00 01/09/20 01/09/20 01/09/20 01/09/20 12:45 13:00 13:15 13:31 Temp 98.7 Pulse 66 65 67 67 Resp 26 30 26 22 B/P (MAP) 129/69 (89) 133/62 (85) 122/56 (78) 139/73 (95) Pulse Ox 92 90 94 91 01/09/20 01/09/20 01/09/20 01/09/20 13:50 14:00 14:15 14:30 Pulse 59 67 66 65 Resp 15 15 17 25 B/P (MAP) 133/64 (87) 120/53 (75) 124/60 (81) Pulse Ox 92 90 92 91 01/09/20 01/09/20 01/09/20 01/09/20 14:45 15:00 15:15 15:16 Pulse 64 64 64 Resp 24 24 24 15 B/P (MAP) 138/74 (95) 130/60 (83) 137/63 (87) Pulse Ox 91 89 92 92 01/09/20 01/09/20 01/09/20 01/09/20 15:30 15:45 16:00 16:15 Pulse 65 64 59 59 Resp 22 20 26 21 B/P (MAP) 141/63 (89) 132/69 (90) 126/53 (77) 114/60 (78) Pulse Ox 88 87 89 89 01/09/20 01/09/20 01/09/20 01/09/20 16:30 16:45 16:45 17:00 Temp 98.6 Pulse 61 59 61 Resp 26 23 22 B/P (MAP) 131/56 (81) 131/58 (82) Pulse Ox 94 91 91 O2 Delivery Nasal Cannula O2 Flow Rate 4.00 01/09/20 01/09/20 01/09/20 01/09/20 17:01 17:15 17:16 17:30 Pulse 61 57 58 58 Resp 23 22 21 26 B/P (MAP) 135/69 (91) 132/54 (80) 128/66 (86) Pulse Ox 90 88 92 92 01/09/20 01/09/20 01/09/20 01/09/20 17:45 17:46 17:46 18:00 Pulse 60 61 61 59 Resp 38 15 23 27 B/P (MAP) 142/99 (113) 150/71 (97) Pulse Ox 93 92 92 93 01/09/20 01/09/20 01/09/20 01/09/20 18:15 18:30 18:45 19:00 Pulse 58 63 65 67 Resp 19 21 22 23 B/P (MAP) 113/64 (80) 128/72 (90) Pulse Ox 95 86 92 94 01/09/20 01/09/20 01/09/20 19:15 19:30 19:49 Temp 98.6 Pulse 62 61 Resp 16 21 B/P (MAP) 122/59 (80) Pulse Ox 91 95 O2 Delivery Nasal Cannula O2 Flow Rate 4.00 Intake and Output 01/09/20 07:00 Intake Total 1622 ml Output Total 1350 ml Balance 272 ml Laboratory Tests Test 01/08/20 01:35 01/08/20 04:45 01/08/20 05:09 01/09/20 04:23 Bedside Glucose 131 Urine Collection Type VOID Urine Color YELLOW Urine Appearance HAZY Urine Bilirubin NEGATIVE MG/DL Urine Ketones NEGATIVE Urine Specific [place] 1.020 Urine pH 6.0 Urine Protein TRACE Urine Urobilinogen NORMAL Urine Nitrate NEGATIVE Urine Leukocyte Esterase 25 /uL TRACE Urine Blood TRACE Urine RBC 0-2 RBC/HPF Urine WBC 10-25 WBC/HPF Urine Squamous Epithelial Cells FEW #/HPF Urine Bacteria FEW Urine Glucose NEGATIVE White Blood Count 3.7 10^3/uL 8.4 10^3/uL Red Blood Count 4.95 10^6/uL 4.66 10^6/uL Hemoglobin 13.7 g/dL 13.0 g/dL Hematocrit 42.3 % 39.8 % Mean Corpuscular Volume 85.5 fL 85.4 fL Mean Corpuscular Hemoglobin 27.7 pg 27.9 pg Mean Corpuscular Hemoglobin Concent 32.4 g/dL 32.7 g/dL Red Cell Distribution Width 14.1 % 14.2 % Platelet Count 256 10^3/uL 268 10^3/uL Mean Platelet Volume 10.4 fL 10.3 fL Neutrophils (%) (Auto) 76.5 % 76.8 % Lymphocytes (%) (Auto) 19.1 % 14.1 % Monocytes (%) (Auto) 3.8 % 8.8 % Neutrophils # (Auto) 2.8 10^3/uL 6.4 10^3/uL Lymphocytes # (Auto) 0.71 10^3/uL1 1.18 10^3/uL1 Monocytes # (Auto) 0.1 10^3/uL 0.7 10^3/uL Absolute Immature Granulocyte (auto 0.01 10^3 u/L 0.02 10^3 u/L Absolute Eosinophils (auto) 0.0 10^3/uL 0.0 10^3/uL Immature Granulocytes % 0.30 % 0.20 % Eosinophils % 0.0 % 0.0 % Basophils % 0.3 % 0.1 % Basophils # 0.0 10^3/uL 0.0 10^3/uL Prothrombin Time 10.4 SEC Prothrombin Time INR (Non-Therap) 1.0 Activated Partial Thromboplast Time 25.2 SEC Fibrinogen 472 mg/dL Sodium Level 136 mmol/L 145 mmol/L Potassium Level 3.7 mmol/L 3.6 mmol/L Chloride Level 103.0 mmol/L 109.0 mmol/L Carbon Dioxide Level 22.7 mmol/L 26.1 mmol/L Anion Gap 14.0 13.5 Blood Urea Nitrogen 17 mg/dL 20 mg/dL Creatinine 1.09 mg/dL 1.04 mg/dL Estimated GFR () 57.9 61.1 Est GFR (CKD-EPI)(Non-Afr [place] Citizen) 47.8 50.5 BUN/Creatinine Ratio 15.0 19.0 Glucose Level 154 mg/dL 108 mg/dL Calcium Level 8.9 mg/dL 8.6 mg/dL Phosphorus Level 3.3 mg/dL 2.7 mg/dL Magnesium Level 1.8 mg/dL 1.8 mg/dL Ferritin 101 ng/mL Total Bilirubin 0.3 mg/dL 0.2 mg/dL Aspartate Amino Transf (AST/SGOT) 36 U/L 27 U/L Alanine Aminotransferase (ALT/SGPT) 32 U/L 25 U/L Alkaline Phosphatase 97 U/L 94 U/L Lactate Dehydrogenase 209 U/L C-Reactive Protein 8.47 mg/dL Pro-B-Type Natriuretic Peptide 103 pg/mL 150 pg/mL Total Protein 7.6 g/dL 6.6 g/dL Albumin 3.2 g/dL 3.0 g/dL Globulin 4.4 3.6 Albumin/Globulin Ratio 0.727 0.833 Triglycerides Level 61 mg/dL Cholesterol Level 93 mg/dL LDL Cholesterol, Calculated 32.8 VLDL Cholesterol, Calculated 12.2 HDL Cholesterol 48 mg/dL Cholesterol Ratio (LDL/HDL) 0.6 Cholesterol/HDL Ratio [id number] Vitamin B12 Level 1018 pg/mL Procalcitonin < 0.05 ng/mL Thyroid Stimulating Hormone (TSH) 0.934 mIU/mL Current Medications Medications (Trade) Dose Ordered Sig/Khoi PRN Reason Start Time Stop Time Status Last Admin Acetaminophen (Tylenol) 1,000 mg Q6H PRN pain or fever 01/08/20 01:00 02/07/20 00:59 Albuterol/ Ipratropium (Combivent Respimat 20-100 Mcg) 1 inh RTQ4 01/08/20 05:00 02/07/20 04:59 01/09/20 17:00 Amlodipine Besylate (Norvasc) 5 mg DAILY 01/08/20 09:00 02/07/20 08:59 01/09/20 08:41 Ascorbic Acid (Vitamin C) 500 mg DAILY 01/08/20 09:00 02/07/20 08:59 01/09/20 08:41 Aspirin (Aspirin Ec) 81 mg DAILY 01/08/20 09:00 02/07/20 08:59 01/09/20 08:41 Atorvastatin Calcium (Lipitor) 40 mg HS 01/09/20 21:00 02/07/20 20:59 Azithromycin 500 mg/Sodium Chloride 250 ml @ 175 mls/hr Q24HRS 01/08/20 01:00 02/07/20 00:59 01/09/20 00:30 Ceftriaxone Sodium 1000 mg/ Sodium Chloride 100 ml @ 100 mls/hr Q24HRS 01/08/20 01:00 02/07/20 00:59 01/09/20 00:30 Clopidogrel Bisulfate (Plavix) 75 mg DAILY 01/08/20 09:00 02/07/20 08:59 01/09/20 08:41 Guaifenesin (Mucinex) 600 mg BID 01/08/20 09:00 02/07/20 08:59 01/09/20 08:41 Heparin Sodium (Porcine) (Heparin) 5,000 unit Q8HR 01/08/20 06:00 02/07/20 05:59 01/09/20 13:48 Lactobacillus Acidophilus (Bacid) 1 each TIDM 01/08/20 08:00 02/07/20 07:59 01/09/20 17:46 Losartan Potassium (Cozaar) 50 mg DAILY 01/08/20 09:00 02/07/20 08:59 01/09/20 08:42 Morphine Sulfate (Morphine Sulfate) 2 mg Q4H PRN PAIN SEVER 01/08/20 01:00 02/07/20 00:59 Ondansetron HCl (Zofran) 4 mg Q4H PRN NAUSEA / VOMITING 01/08/20 01:00 02/07/20 00:59 Pantoprazole Sodium (Protonix) 40 mg DAILY 01/08/20 09:00 02/07/20 08:59 01/09/20 08:41 Remdesivir (Eua) 100 mg/Sodium Chloride 250 ml @ 250 mls/hr DAILY 01/09/20 09:00 02/08/20 08:59 01/09/20 09:55 Sodium Chloride 1,000 ml @ 75 mls/hr [id number] 01/08/20 01:30 02/07/20 01:29 01/09/20 17:46 Zinc Sulfate (Zinc Sulfate) 220 mg DAILY 01/08/20 09:00 02/07/20 08:59 01/09/20 08:41 Sepsis Infection Criteria Pres: None LEVEL 1 SEPSIS INFECTION CRITE: ABX Therapy, Flu-Pneumonia LEVEL 2-SIRS (LIST ALL THAT AP: None/Not assessed Cardiovascular Evidence: Not Assessed or None Hematologic Evidence: None/Not assessed Hepatic Evidence: None/Not assessed Metabolic Evidence: None/Not assessed Neurological Evidence: None/Not assessed Respiratory Evidence: Need for O2 to keep>90%, O2 SAT<90room air Renal Evidence: None/Not assessed O2 Sat by Pulse Oximetry: 90 Oxygen Flow Rate: 1.50 Assessment/Plan Assessment/Plan Assessment/Plan PROGRESS NOTE 1) Acute Encephalopathy: Back to baseline. Will continue to monitor. 2) Acute Hypoxemic Respiratory Failure: continue with Br Tx's, O2 PRN, and Steroids. Continue aggressive RT protocol. 3) COVID-19 infection: positive test.Continue Tx with Remdesivir and Decadron 6mg iv daily 4) BL Pneumonia: Will continue Rocephin and Azithromycin, pending Sputum Cx results. 5) UTI (POA): Continue Rocephin and follow up on the Ur Cx results. no urine culture growth 6) Volume Depletion: improved 7) Stool studies negative 8) COPD exacerbation: likely due to covid 19 infection, Will continue Br Tx's, O2 PRN, and steroids. started on Remdesivire 9) HTN: Currently stable on her home meds. Monitor for now. 10) Generalized Weakness: Will request a PT evaluation once pt is more stable . 11) GI and DVT prophylaxis: Will continue Protonix and Heparin. Problems: (1) Viral pneumonia Status: Acute ICD Code: J12.9 - Viral pneumonia, unspecified SNOMED: 28690987 (2) Acute and chronic respiratory failure Status: Chronic ICD Code: J96.20 - Acute and chronic respiratory failure, unspecified whether with hypoxia or hypercapnia SNOMED: 08259903 (3) COVID-19 Status: Acute ICD Code: U07.1 - COVID-19 SNOMED: [id number] Plan PROGRESS NOTE 1) Acute Encephalopathy: improved 2) Acute on chronic Hypoxemic Respiratory Failure: continue with Br Tx's, O2 PRN, and Steroids. improved 3) COVID-19 infection: positive test.Continue Tx with Remdesivir and Decadron 6mg iv daily at least 5 days 4) BL Pneumonia: Will continue Rocephin and Azithromycin, pending Sputum Cx results. 5) UTI (POA): Continue Rocephin and follow up on the Ur Cx results. no urine culture growth 6) Volume Depletion: improved 7) Stool studies negative 8) COPD exacerbation: likely due to covid 19 infection, Will continue Br Tx's, O2 PRN, and steroids. started on Remdesivire 9) HTN: Currently stable on her home meds. Monitor for now. 10) Generalized Weakness: Will request a PT evaluation once pt is more stable. 11) GI and DVT prophylaxis: Will continue Protonix and Heparin. RENNY ARTEAGA MD Jan 12, 2020 16:23
[2020-01-12] MEDS: LIPITOR PO SCH (21:51)
[2020-01-13] VITALS (42 sets, daily range): BP systolic 86–181; BP diastolic 43–117
[2020-01-13] MEDS: COMBIVENT RESPIMAT 20-100 MCG IH SCH ×2 (01:00→11:21)
[2020-01-13] MEDS: ZITHROMAX 500 MG in NS 250ML 250 ML IV SCH (01:00)
[2020-01-13] MEDS: ROCEPHIN 1,000 MG in NS 100ML 100 ML IV SCH (01:05)
[2020-01-13] MEDS: NS 1000ML 1,000 ML IV SCH (01:30)
[2020-01-13] MEDS: HEPARIN SQ SCH (05:26)
[2020-01-13] MEDS: BACID PO SCH ×2 (08:00→12:10)
[2020-01-13] MEDS ORDERED: PRED20TA PO (12:07)
--- NOTE | 2020-01-13 12:09 | PCM.HP ---
History of Present Illness Travel History [place] RISK:Travel to/contact w: No Review of Systems Constitutional: No: Fever, Chills, Sweats, Weakness, Malaise Eyes: No: Pain, Vision change, Conjunctivae inflammation, Eyelid inflammation, Redness ENT: No: Ear pain, Ear discharge, Nose pain, Nose discharge, Nose congestion, Mouth pain, Mouth swelling, Throat pain, Throat swelling Respiratory: Shortness of breath; No: Cough, Dry, SOB with excertion, Wheezing, Hemoptysis, Pleuritic Pain, Sputum, Wheezing Cardiovascular: No: Chest Pain, Palpitations, Orthopnea, Paroxysmal Noc. Dyspnea, Edema, Lt Headedness Gastrointestinal: Other; No: Nausea, Vomiting, Abdominal Pain, Diarrhea, Constipation, Melena, Hematochezia Genitourinary: No Dysuria, No Frequency, No Incontinence, No Hematuria, No Retention Musculoskeletal: No: neck pain, shoulder pain, arm pain, back pain, hand pain, leg pain, foot pain Skin: No: Rash, Lesions, Jaundice, Bruising Neurological: No: Weakness, Numbness, Incoordination, Change in speech, Confusion, Seizures Allergies: Coded Allergies: No Known Allergies (Unverified , 02/13/19) Scheduled Amlodipine Besylate (Amlodipine Besylate), 1 TAB PO DAILY Amoxicillin (Amoxicillin), 500 MG PO Q8HR Aspirin (Aspirin Ec), 81 MG PO DAILY Atorvastatin 20MG (Lipitor 20MG), 40 MG PO HS Clopidogrel Bisulfate (Clopidogrel), 75 MG PO DAILY Losartan Potassium (Cozaar), 50 MG PO DAILY Nystatin (Nystatin), 15 GM TP BID Pantoprazole Sodium (Protonix), 1 TAB PO DAILY Paroxetine Hcl (Paroxetine Hcl), 1 TAB PO DAILY Prednisone (Prednisone), 20 MG PO DAILY24 Ursodiol (Karen), 1 TAB PO BID Scheduled PRN Cyanocobalamin (Vitamin B-12) (Cyanocobalamin Injection), 1,000 MCG IJ qmonth PRN for vit def VTE VTE Risk Total Score: >5 VTE Risk Score VTE Risk: Score 0-1 = Low Risk (Aggressive mobilization; early ambulation; no VTE prophylaxis required) Score 2: Moderate Risk (Intermittent/Pneumatic Compression Device OR Lovenox/Heparin/Coumadin) Score 3-4: High Risk (Intermittent/Pneumatic Compression Device AND Lovenox/Heparin/Coumadin) Score > or =5: Highest Risk (Intermittent/Pneumatic Compression Device AND Lovenox/Heparin/Coumadin) Antico:Hep/LMWH/Coum/Xarelto: No VTE VTE Present on Admission: No Currently receiving anticoagul: No VTE Risk Total Score: >5 Antico:Hep/LMWH/Coum/Xarelto: No Exam Vital Signs Vital Signs Date Time Temp Pulse Resp B/P (MAP) Pulse Ox O2 Delivery O2 Flow Rate FiO2 01/13/20 05:30 97.8 59 22 161/79 (106) 94 01/12/20 21:54 Nasal Cannula 1.50 01/11/20 21:00 95 Assessment/Plan Assessment/Plan Assessment/Plan PROGRESS NOTE 1) Acute Encephalopathy: improved 2) Acute on chronic Hypoxemic Respiratory Failure: continue with Br Tx's, O2 PRN, and Steroids. improved 3) COVID-19 infection: positive test.Continue Tx with Remdesivir and Decadron 6mg iv daily at least 5 days 4) BL Pneumonia: Will continue Rocephin and Azithromycin, pending Sputum Cx results. 5) UTI (POA): Continue Rocephin and follow up on the Ur Cx results. no urine culture growth 6) Volume Depletion: improved 7) Stool studies negative 8) COPD exacerbation: likely due to covid 19 infection, Will continue Br Tx's, O2 PRN, and steroids. started on Remdesivire 9) HTN: Currently stable on her home meds. Monitor for now. 10) Generalized Weakness: Will request a PT evaluation once pt is more stable. 11) GI and DVT prophylaxis: Will continue Protonix and Heparin. Plan PROGRESS NOTE 1) Acute Encephalopathy: improved 2) Acute on chronic Hypoxemic Respiratory Failure: continue with Br Tx's, O2 PRN, and Steroids. improved 3) COVID-19 infection: positive test.Continue Tx with Remdesivir and Decadron 6mg iv daily at least 5 days 4) BL Pneumonia: Will continue Rocephin and Azithromycin, pending Sputum Cx results. 5) UTI (POA): Continue Rocephin and follow up on the Ur Cx results. no urine culture growth 6) Volume Depletion: improved 7) Stool studies negative 8) COPD exacerbation: likely due to covid 19 infection, Will continue Br Tx's, O2 PRN, and steroids. started on Remdesivire 9) HTN: Currently stable on her home meds. Monitor for now. 10) Generalized Weakness: Will request a PT evaluation once pt is more stable. 11) GI and DVT prophylaxis: Will continue Protonix and Heparin. RENNY ARTEAGA MD Jan 13, 2020 12:09
[2020-01-13] MEDS: COZAAR PO SCH (12:10)
[2020-01-13] MEDS: NORVASC PO SCH (12:11)
[2020-01-13] MEDS: VITAMIN C PO SCH (12:11)
[2020-01-13] MEDS: ZINC SULFATE PO SCH (12:11)
[2020-01-13] MEDS: ASPIRIN EC PO SCH (12:11)
[2020-01-13] MEDS: PLAVIX PO SCH (12:11)
[2020-01-13] MEDS: MUCINEX PO SCH (12:11)
[2020-01-13] MEDS: NS IV SCH (12:12)
[2020-01-13] MEDS: REMDESIVIR IV SCH (12:12)
[2020-01-13] MEDS: PROTONIX PO SCH (12:12)
[2020-01-13] MEDS: DECADRON IV SCH (12:12)
--- NOTE | 2020-01-14 10:29 | PRM.DC ---
Discharge Summary Date of Discharge: Jan 13, 2020 Time of Request to Discharge: 12:00 Hospital Course Patient is 84 yo F with medical hx of Htn, hyperlipidemia, depression, COPD on home oxygen admitted for Pna due to COVID-19 and CODP exacerbation. Was put into ICU and started on abx and remdesivir along with Inhaler breathing treatments and steroids therapy. Patient responding well to medical regimen. Repeated imaging study reports improvement. She was then planned for discharge home with steroids. She is instructed to followup with pcp as soon as possible. General: Alert, Oriented X3, Cooperative, No acute distress HEENT: Atraumatic, PERRLA, EOMI, Mucous membr. moist/pink Neck: Supple, No JVD, No thyromegaly, +2 carotid pulse wo bruit Lungs: Clear to auscultation, Normal air movement Heart: Regular rate, Normal S1, Normal S2, No murmurs Abdomen: Normal bowel sounds, Soft, No tenderness Extremities: No clubbing, No cyanosis, Normal pulses Skin: No rashes Neuro: Normal speech, Strength at 5/5 X4 ext, Normal tone Psych/Mental Status: Mental status NL Scheduled Amlodipine Besylate (Amlodipine Besylate), 1 TAB PO DAILY Amoxicillin (Amoxicillin), 500 MG PO Q8HR Aspirin (Aspirin Ec), 81 MG PO DAILY Atorvastatin 20MG (Lipitor 20MG), 40 MG PO HS Clopidogrel Bisulfate (Clopidogrel), 75 MG PO DAILY Losartan Potassium (Cozaar), 50 MG PO DAILY Nystatin (Nystatin), 15 GM TP BID Pantoprazole Sodium (Protonix), 1 TAB PO DAILY Paroxetine Hcl (Paroxetine Hcl), 1 TAB PO DAILY Prednisone (Prednisone), 20 MG PO DAILY24 Ursodiol (Karen), 1 TAB PO BID Scheduled PRN Cyanocobalamin (Vitamin B-12) (Cyanocobalamin Injection), 1,000 MCG IJ qmonth PRN for vit def Sepsis Evaluation @ Discharge Vital Sign - Last 24 Hours 01/08/20 01/08/20 01/08/20 01/08/20 20:30 20:45 21:00 21:15 Pulse 59 59 60 60 Resp 24 14 23 19 B/P (MAP) 125/58 (80) 124/43 (70) 115/58 (77) 130/62 (84) Pulse Ox 93 94 92 92 901/08/20 01/08/20 01/08/20 21:30 21:45 23:00 23:15 Pulse 55 56 59 57 Resp 24 B/P (MAP) 127/60 (82) 138/108 (118) 134/67 (89) 133/69 (90) Pulse Ox 95 96 93 92 01/08/20 01/08/20 01/09/20 01/09/20 23:30 23:45 00:00 00:00 Pulse 57 56 57 Resp 22 B/P (MAP) 131/69 (89) 140/62 (88) 139/59 (85) Pulse Ox 93 92 95 O2 Delivery Nasal Cannula O2 Flow Rate 4.00 01/09/20 01/09/20 01/09/20 01/09/20 00:15 00:30 00:45 01:00 Pulse 59 59 61 56 Resp B/P (MAP) 132/62 (85) 127/65 (85) Pulse Ox 91 91 92 96 01/09/20 01/09/20 01/09/20 01/09/20 01:00 01:15 01:30 01:45 Pulse 57 58 61 58 Resp B/P (MAP) 153/66 (95) 108/69 (82) 128/47 (74) Pulse Ox 92 92 91 92 01/09/20 01/09/20 01/09/20 01/09/20 02:00 02:15 02:30 02:45 Pulse 61 61 60 59 Resp B/P (MAP) 139/64 (89) 128/63 (84) 130/61 (84) 141/58 (85) Pulse Ox 93 93 94 91 01/09/20 01/09/20 01/09/20 01/09/20 03:00 03:15 03:30 03:45 Pulse 59 59 56 57 Resp B/P (MAP) 138/58 (84) 131/64 (86) 131/60 (83) 133/62 (85) Pulse Ox 95 92 92 92 01/09/20 01/09/20 01/09/20 01/09/20 04:00 04:15 04:30 04:45 Pulse 57 56 56 57 Resp 22 B/P (MAP) 139/61 (87) 140/65 (90) 134/62 (86) 144/65 (91) Pulse Ox 92 92 89 89 01/09/20 01/09/20 01/09/20 01/09/20 04:46 05:00 05:15 05:30 Pulse 59 59 70 57 Resp 22 23 22 B/P (MAP) 147/69 (95) 141/68 (92) 149/64 (92) Pulse Ox 91 95 92 93 01/09/20 01/09/20 01/09/20 01/09/20 05:45 05:53 06:00 06:15 Temp 98.6 Pulse 55 56 59 Resp 23 20 23 B/P (MAP) 146/69 (94) Pulse Ox 93 94 95 O2 Delivery Nasal Cannula O2 Flow Rate 4.00 01/09/20 01/09/20 01/09/20 01/09/20 06:45 07:00 07:15 07:30 Pulse 56 57 57 58 Resp 22 23 Pulse Ox 92 91 92 90 01/09/20 01/09/20 01/09/20 01/09/20 07:45 08:00 08:02 08:15 Temp 99.0 Pulse 58 58 61 59 Resp 23 20 13 25 B/P (MAP) 142/73 (96) 150/64 (92) Pulse Ox 93 88 94 89 01/09/20 01/09/20 01/09/20 01/09/20 08:30 08:30 08:41 08:42 Pulse 60 60 Resp 15 B/P (MAP) 144/66 (92) 144/66 144/66 Pulse Ox 94 O2 Delivery Nasal Cannula O2 Flow Rate 4.00 01/09/20 01/09/20 01/09/20 01/09/20 08:45 09:00 09:15 09:27 Pulse 61 64 64 59 Resp 23 25 23 15 B/P (MAP) 153/75 (101) 151/81 (104) 154/97 (116) Pulse Ox 90 86 89 92 O2 Delivery Nasal Cannula O2 Flow Rate 3.00 FiO2 32 01/09/20 01/09/20 01/09/20 01/09/20 09:28 09:30 09:30 09:45 Pulse 68 59 68 Resp 15 26 15 18 B/P (MAP) 126/84 (98) 146/72 (96) Pulse Ox 92 83 92 87 01/09/20 01/09/20 01/09/20 01/09/20 10:00 10:15 10:31 10:45 Pulse 65 64 63 67 Resp 16 16 26 24 B/P (MAP) 168/58 (94) 146/67 (93) 140/61 (87) 118/49 (72) Pulse Ox 90 87 90 88 01/09/20 01/09/20 01/09/20 01/09/20 11:01 11:15 11:31 11:45 Pulse 66 68 67 67 Resp 16 17 21 20 B/P (MAP) 149/64 (92) 157/75 (102) 145/73 (97) 142/72 (95) Pulse Ox 89 92 89 91 01/09/20 01/09/20 01/09/20 01/09/20 12:00 12:15 12:30 12:32 Pulse 66 70 68 Resp 28 22 B/P (MAP) 159/74 (102) 143/52 (82) 133/55 (81) Pulse Ox 91 89 92 O2 Delivery Nasal Cannula O2 Flow Rate 4.00 01/09/20 01/09/20 01/09/20 01/09/20 12:45 13:00 13:15 13:31 Temp 98.7 Pulse 66 65 67 67 Resp 30 26 22 B/P (MAP) 129/69 (89) 133/62 (85) 122/56 (78) 139/73 (95) Pulse Ox 92 90 94 91 01/09/20 01/09/20 01/09/20 01/09/20 13:50 14:00 14:15 14:30 Pulse 59 67 66 65 Resp 15 15 17 25 B/P (MAP) 133/64 (87) 120/53 (75) 124/60 (81) Pulse Ox 92 90 92 91 01/09/20 01/09/20 01/09/20 01/09/20 14:45 15:00 15:15 15:16 Pulse 64 64 64 Resp 24 24 24 15 B/P (MAP) 138/74 (95) 130/60 (83) 137/63 (87) Pulse Ox 91 89 92 92 01/09/20 01/09/20 01/09/20 01/09/20 15:30 15:45 16:00 16:15 Pulse 65 64 59 59 Resp 22 20 26 21 B/P (MAP) 141/63 (89) 132/69 (90) 126/53 (77) 114/60 (78) Pulse Ox 88 87 89 89 01/09/20 01/09/20 01/09/20 01/09/20 16:30 16:45 16:45 17:00 Temp 98.6 Pulse 61 59 61 Resp 26 23 22 B/P (MAP) 131/56 (81) 131/58 (82) Pulse Ox 94 91 91 O2 Delivery Nasal Cannula O2 Flow Rate 4.00 01/09/20 01/09/20 01/09/20 01/09/20 17:01 17:15 17:16 17:30 Pulse 61 57 58 58 Resp 23 22 21 26 B/P (MAP) 135/69 (91) 132/54 (80) 128/66 (86) Pulse Ox 90 88 92 92 01/09/20 01/09/20 01/09/20 01/09/20 17:45 17:46 17:46 18:00 Pulse 60 61 61 59 Resp 38 15 23 27 B/P (MAP) 142/99 (113) 150/71 (97) Pulse Ox 93 92 92 93 01/09/20 01/09/20 01/09/20 01/09/20 18:15 18:30 18:45 19:00 Pulse 58 63 65 67 Resp 19 21 22 23 B/P (MAP) 113/64 (80) 128/72 (90) Pulse Ox 95 86 92 94 01/09/20 01/09/20 01/09/20 19:15 19:30 19:49 Temp 98.6 Pulse 62 61 Resp 16 21 B/P (MAP) 122/59 (80) Pulse Ox 91 95 O2 Delivery Nasal Cannula O2 Flow Rate 4.00 Intake and Output 01/09/20 07:00 Intake Total 1622 ml Output Total 1350 ml Balance 272 ml Laboratory Tests Test 01/08/20 01:35 01/08/20 04:45 01/08/20 05:09 01/09/20 04:23 Bedside Glucose 131 Urine Collection Type VOID Urine Color YELLOW Urine Appearance HAZY Urine Bilirubin NEGATIVE MG/DL Urine Ketones NEGATIVE Urine Specific [place] 1.020 Urine pH 6.0 Urine Protein TRACE Urine Urobilinogen NORMAL Urine Nitrate NEGATIVE Urine Leukocyte Esterase 25 /uL TRACE Urine Blood TRACE Urine RBC 0-2 RBC/HPF Urine WBC 10-25 WBC/HPF Urine Squamous Epithelial Cells FEW #/HPF Urine Bacteria FEW Urine Glucose NEGATIVE White Blood Count 3.7 10^3/uL 8.4 10^3/uL Red Blood Count 4.95 10^6/uL 4.66 10^6/uL Hemoglobin 13.7 g/dL 13.0 g/dL Hematocrit 42.3 % 39.8 % Mean Corpuscular Volume 85.5 fL 85.4 fL Mean Corpuscular Hemoglobin 27.7 pg 27.9 pg Mean Corpuscular Hemoglobin Concent 32.4 g/dL 32.7 g/dL Red Cell Distribution Width 14.1 % 14.2 % Platelet Count 256 10^3/uL 268 10^3/uL Mean Platelet Volume 10.4 fL 10.3 fL Neutrophils (%) (Auto) 76.5 % 76.8 % Lymphocytes (%) (Auto) 19.1 % 14.1 % Monocytes (%) (Auto) 3.8 % 8.8 % Neutrophils # (Auto) 2.8 10^3/uL 6.4 10^3/uL Lymphocytes # (Auto) 0.71 10^3/uL1 1.18 10^3/uL1 Monocytes # (Auto) 0.1 10^3/uL 0.7 10^3/uL Absolute Immature Granulocyte (auto 0.01 10^3 u/L 0.02 10^3 u/L Absolute Eosinophils (auto) 0.0 10^3/uL 0.0 10^3/uL Immature Granulocytes % 0.30 % 0.20 % Eosinophils % 0.0 % 0.0 % Basophils % 0.3 % 0.1 % Basophils # 0.0 10^3/uL 0.0 10^3/uL Prothrombin Time 10.4 SEC Prothrombin Time INR (Non-Therap) 1.0 Activated Partial Thromboplast Time 25.2 SEC Fibrinogen 472 mg/dL Sodium Level 136 mmol/L 145 mmol/L Potassium Level 3.7 mmol/L 3.6 mmol/L Chloride Level 103.0 mmol/L 109.0 mmol/L Carbon Dioxide Level 22.7 mmol/L 26.1 mmol/L Anion Gap 14.0 13.5 Blood Urea Nitrogen 17 mg/dL 20 mg/dL Creatinine 1.09 mg/dL 1.04 mg/dL Estimated GFR () 57.9 61.1 Est GFR (CKD-EPI)(Non-Afr [place]) 47.8 50.5 BUN/Creatinine Ratio 15.0 19.0 Glucose Level 154 mg/dL 108 mg/dL Calcium Level 8.9 mg/dL 8.6 mg/dL Phosphorus Level 3.3 mg/dL 2.7 mg/dL Magnesium Level 1.8 mg/dL 1.8 mg/dL Ferritin 101 ng/mL Total Bilirubin 0.3 mg/dL 0.2 mg/dL Aspartate Amino Transf (AST/SGOT) 36 U/L 27 U/L Alanine Aminotransferase (ALT/SGPT) 32 U/L 25 U/L Alkaline Phosphatase 97 U/L 94 U/L Lactate Dehydrogenase 209 U/L C-Reactive Protein 8.47 mg/dL Pro-B-Type Natriuretic Peptide 103 pg/mL 150 pg/mL Total Protein 7.6 g/dL 6.6 g/dL Albumin 3.2 g/dL 3.0 g/dL Globulin 4.4 3.6 Albumin/Globulin Ratio 0.727 0.833 Triglycerides Level 61 mg/dL Cholesterol Level 93 mg/dL LDL Cholesterol, Calculated 32.8 VLDL Cholesterol, Calculated 12.2 HDL Cholesterol 48 mg/dL Cholesterol Ratio (LDL/HDL) 0.6 Cholesterol/HDL Ratio [id number] Vitamin B12 Level 1018 pg/mL Procalcitonin < 0.05 ng/mL Thyroid Stimulating Hormone (TSH) 0.934 mIU/mL Current Medications Medications (Trade) Dose Ordered Sig/Khoi PRN Reason Start Time Stop Time Status Last Admin Acetaminophen (Tylenol) 1,000 mg Q6H PRN pain or fever 01/08/20 01:00 02/07/20 00:59 Albuterol/ Ipratropium (Combivent Respimat 20-100 Mcg) 1 inh RTQ4 01/08/20 05:00 02/07/20 04:59 01/09/20 17:00 Amlodipine Besylate (Norvasc) 5 mg DAILY 01/08/20 09:00 02/07/20 08:59 01/09/20 08:41 Ascorbic Acid (Vitamin C) 500 mg DAILY 01/08/20 09:00 02/07/20 08:59 01/09/20 08:41 Aspirin (Aspirin Ec) 81 mg DAILY 01/08/20 09:00 02/07/20 08:59 01/09/20 08:41 Atorvastatin Calcium (Lipitor) 40 mg HS 01/09/20 21:00 02/07/20 20:59 Azithromycin 500 mg/Sodium Chloride 250 ml @ 175 mls/hr Q24HRS 01/08/20 01:00 02/07/20 00:59 01/09/20 00:30 Ceftriaxone Sodium 1000 mg/ Sodium Chloride 100 ml @ 100 mls/hr Q24HRS 01/08/20 01:00 02/07/20 00:59 01/09/20 00:30 Clopidogrel Bisulfate (Plavix) 75 mg DAILY 01/08/20 09:00 02/07/20 08:59 01/09/20 08:41 Guaifenesin (Mucinex) 600 mg BID 01/08/20 09:00 02/07/20 08:59 01/09/20 08:41 Heparin Sodium (Porcine) (Heparin) 5,000 unit Q8HR 01/08/20 06:00 02/07/20 05:59 01/09/20 13:48 Lactobacillus Acidophilus (Bacid) 1 each TIDM 01/08/20 08:00 02/07/20 07:59 01/09/20 17:46 Losartan Potassium (Cozaar) 50 mg DAILY 01/08/20 09:00 02/07/20 08:59 01/09/20 08:42 Morphine Sulfate (Morphine Sulfate) 2 mg Q4H PRN PAIN SEVER 01/08/20 01:00 02/07/20 00:59 Ondansetron HCl (Zofran) 4 mg Q4H PRN NAUSEA / VOMITING 01/08/20 01:00 02/07/20 00:59 Pantoprazole Sodium (Protonix) 40 mg DAILY 01/08/20 09:00 02/07/20 08:59 01/09/20 08:41 Remdesivir (Eua) 100 mg/Sodium Chloride 250 ml @ 250 mls/hr DAILY 01/09/20 09:00 02/08/20 08:59 01/09/20 09:55 Sodium Chloride 1,000 ml @ 75 mls/hr [id number] 01/08/20 01:30 02/07/20 01:29 01/09/20 17:46 Zinc Sulfate (Zinc Sulfate) 220 mg DAILY 01/08/20 09:00 02/07/20 08:59 01/09/20 08:41 Course Sepsis Screening Results: Posi: POSITIVE Sepsis Qualifier/Stage: SEPSIS RISK DATE SEEN BY PHYSICIAN: Jan 09, 2020 Duration or Total Time Spent w: 45 Vitals & review Data Vital Sign - Last 24 Hours 01/08/20 01/08/20 01/08/20 01/08/20 20:30 20:45 21:00 21:15 Pulse 59 59 60 60 Resp 14 23 19 B/P (MAP) 125/58 (80) 124/43 (70) 115/58 (77) 130/62 (84) Pulse Ox 93 94 92 92 01/08/20 01/08/20 01/08/20 01/08/20 21:30 21:45 23:00 23:15 Pulse 55 56 59 57 Resp 30 24 B/P (MAP) 127/60 (82) 138/108 (118) 134/67 (89) 133/69 (90) Pulse Ox 95 96 93 92 01/08/20 01/08/20 01/09/20 01/09/20 23:30 23:45 00:00 00:00 Pulse 57 56 57 Resp 22 22 B/P (MAP) 131/69 (89) 140/62 (88) 139/59 (85) Pulse Ox 93 92 95 O2 Delivery Nasal Cannula O2 Flow Rate 4.00 01/09/20 01/09/20 01/09/20 01/09/20 00:15 00:30 00:45 01:00 Pulse 59 59 61 56 Resp 22 B/P (MAP) 132/62 (85) 127/65 (85) Pulse Ox 91 91 92 96 01/09/20 01/09/20 01/09/20 01/09/20 01:00 01:15 01:30 01:45 Pulse 57 58 61 58 Resp 23 B/P (MAP) 153/66 (95) 108/69 (82) 128/47 (74) Pulse Ox 92 92 91 92 01/09/20 01/09/20 01/09/20 01/09/20 02:00 02:15 02:30 02:45 Pulse 61 61 60 59 Resp 24 26 B/P (MAP) 139/64 (89) 128/63 (84) 130/61 (84) 141/58 (85) Pulse Ox 93 93 94 91 01/09/20 01/09/20 01/09/20 01/09/20 03:00 03:15 03:30 03:45 Pulse 59 59 56 57 Resp 22 B/P (MAP) 138/58 (84) 131/64 (86) 131/60 (83) 133/62 (85) Pulse Ox 95 92 92 92 01/09/20 01/09/20 01/09/20 01/09/20 04:00 04:15 04:30 04:45 Pulse 57 56 56 57 Resp 22 B/P (MAP) 139/61 (87) 140/65 (90) 134/62 (86) 144/65 (91) Pulse Ox 92 92 89 89 01/09/20 01/09/20 01/09/20 01/09/20 04:46 05:00 05:15 05:30 Pulse 59 59 70 57 Resp 22 B/P (MAP) 147/69 (95) 141/68 (92) 149/64 (92) Pulse Ox 91 95 92 93 01/09/20 01/09/20 01/09/20 01/09/20 05:45 05:53 06:00 06:15 Temp 98.6 Pulse 55 56 59 Resp 20 23 B/P (MAP) 146/69 (94) Pulse Ox 93 94 95 O2 Delivery Nasal Cannula O2 Flow Rate 4.00 01/09/20 01/09/20 01/09/20 01/09/20 06:45 07:00 07:15 07:30 Pulse 56 57 57 58 Resp 22 23 Pulse Ox 92 91 92 90 01/09/20 01/09/20 01/09/20 01/09/20 07:45 08:00 08:02 08:15 Temp 99.0 Pulse 58 58 61 59 Resp 23 20 13 25 B/P (MAP) 142/73 (96) 150/64 (92) Pulse Ox 93 88 94 89 01/09/20 01/09/20 01/09/20 01/09/20 08:30 08:30 08:41 08:42 Pulse 60 60 Resp 15 B/P (MAP) 144/66 (92) 144/66 144/66 Pulse Ox 94 O2 Delivery Nasal Cannula O2 Flow Rate 4.00 01/09/20 01/09/20 01/09/20 01/09/20 08:45 09:00 09:15 09:27 Pulse 61 64 64 59 Resp 23 25 23 15 B/P (MAP) 153/75 (101) 151/81 (104) 154/97 (116) Pulse Ox 90 86 89 92 O2 Delivery Nasal Cannula O2 Flow Rate 3.00 FiO2 32 01/09/20 01/09/20 01/09/20 01/09/20 09:28 09:30 09:30 09:45 Pulse 68 59 68 Resp 15 26 15 18 B/P (MAP) 126/84 (98) 146/72 (96) Pulse Ox 92 83 92 87 01/09/20 01/09/20 01/09/20 01/09/20 10:00 10:15 10:31 10:45 Pulse 65 64 63 67 Resp 16 16 26 24 B/P (MAP) 168/58 (94) 146/67 (93) 140/61 (87) 118/49 (72) Pulse Ox 90 87 90 88 01/09/20 01/09/20 01/09/20 01/09/20 11:01 11:15 11:31 11:45 Pulse 66 68 67 67 Resp 16 17 21 20 B/P (MAP) 149/64 (92) 157/75 (102) 145/73 (97) 142/72 (95) Pulse Ox 89 92 89 91 01/09/20 01/09/20 01/09/20 01/09/20 12:00 12:15 12:30 12:32 Pulse 66 70 68 Resp 28 22 B/P (MAP) 159/74 (102) 143/52 (82) 133/55 (81) Pulse Ox 91 89 92 O2 Delivery Nasal Cannula O2 Flow Rate 4.00 01/09/20 01/09/20 01/09/20 01/09/20 12:45 13:00 13:15 13:31 Temp 98.7 Pulse 66 65 67 67 Resp 30 26 22 B/P (MAP) 129/69 (89) 133/62 (85) 122/56 (78) 139/73 (95) Pulse Ox 92 90 94 91 9/29/20 9/29/20 9/29/20 9/29/20 13:50 14:00 14:15 14:30 Pulse 59 67 66 65 Resp 15 15 17 25 B/P (MAP) 133/64 (87) 120/53 (75) 124/60 (81) Pulse Ox 92 90 92 91 01/09/20 01/09/20 01/09/20 01/09/20 14:45 15:00 15:15 15:16 Pulse 64 64 64 Resp 24 24 24 15 B/P (MAP) 138/74 (95) 130/60 (83) 137/63 (87) Pulse Ox 91 89 92 92 01/09/20 01/09/20 01/09/20 01/09/20 15:30 15:45 16:00 16:15 Pulse 65 64 59 59 Resp 22 20 26 21 B/P (MAP) 141/63 (89) 132/69 (90) 126/53 (77) 114/60 (78) Pulse Ox 88 87 89 89 01/09/20 01/09/20 01/09/20 01/09/20 16:30 16:45 16:45 17:00 Temp 98.6 Pulse 61 59 61 Resp 26 23 22 B/P (MAP) 131/56 (81) 131/58 (82) Pulse Ox 94 91 91 O2 Delivery Nasal Cannula O2 Flow Rate 4.00 01/09/20 01/09/20 01/09/20 01/09/20 17:01 17:15 17:16 17:30 Pulse 61 57 58 58 Resp 23 22 21 26 B/P (MAP) 135/69 (91) 132/54 (80) 128/66 (86) Pulse Ox 90 88 92 92 01/09/20 01/09/20 01/09/20 01/09/20 17:45 17:46 17:46 18:00 Pulse 60 61 61 59 Resp 38 15 23 27 B/P (MAP) 142/99 (113) 150/71 (97) Pulse Ox 93 92 92 93 01/09/20 01/09/20 01/09/20 01/09/20 18:15 18:30 18:45 19:00 Pulse 58 63 65 67 Resp 19 21 22 23 B/P (MAP) 113/64 (80) 128/72 (90) Pulse Ox 95 86 92 94 01/09/20 01/09/20 01/09/20 19:15 19:30 19:49 Temp 98.6 Pulse 62 61 Resp 16 21 B/P (MAP) 122/59 (80) Pulse Ox 91 95 O2 Delivery Nasal Cannula O2 Flow Rate 4.00 Intake and Output 01/09/20 07:00 Intake Total 1622 ml Output Total 1350 ml Balance 272 ml Laboratory Tests Test 01/08/20 01:35 01/08/20 04:45 01/08/20 05:09 01/09/20 04:23 Bedside Glucose 131 Urine Collection Type VOID Urine Color YELLOW Urine Appearance HAZY Urine Bilirubin NEGATIVE MG/DL Urine Ketones NEGATIVE Urine Specific [place] 1.020 Urine pH 6.0 Urine Protein TRACE Urine Urobilinogen NORMAL Urine Nitrate NEGATIVE Urine Leukocyte Esterase 25 /uL TRACE Urine Blood TRACE Urine RBC 0-2 RBC/HPF Urine WBC 10-25 WBC/HPF Urine Squamous Epithelial Cells FEW #/HPF Urine Bacteria FEW Urine Glucose NEGATIVE White Blood Count 3.7 10^3/uL 8.4 10^3/uL Red Blood Count 4.95 10^6/uL 4.66 10^6/uL Hemoglobin 13.7 g/dL 13.0 g/dL Hematocrit 42.3 % 39.8 % Mean Corpuscular Volume 85.5 fL 85.4 fL Mean Corpuscular Hemoglobin 27.7 pg 27.9 pg Mean Corpuscular Hemoglobin Concent 32.4 g/dL 32.7 g/dL Red Cell Distribution Width 14.1 % 14.2 % Platelet Count 256 10^3/uL 268 10^3/uL Mean Platelet Volume 10.4 fL 10.3 fL Neutrophils (%) (Auto) 76.5 % 76.8 % Lymphocytes (%) (Auto) 19.1 % 14.1 % Monocytes (%) (Auto) 3.8 % 8.8 % Neutrophils # (Auto) 2.8 10^3/uL 6.4 10^3/uL Lymphocytes # (Auto) 0.71 10^3/uL1 1.18 10^3/uL1 Monocytes # (Auto) 0.1 10^3/uL 0.7 10^3/uL Absolute Immature Granulocyte (auto 0.01 10^3 u/L 0.02 10^3 u/L Absolute Eosinophils (auto) 0.0 10^3/uL 0.0 10^3/uL Immature Granulocytes % 0.30 % 0.20 % Eosinophils % 0.0 % 0.0 % Basophils % 0.3 % 0.1 % Basophils # 0.0 10^3/uL 0.0 10^3/uL Prothrombin Time 10.4 SEC Prothrombin Time INR (Non-Therap) 1.0 Activated Partial Thromboplast Time 25.2 SEC Fibrinogen 472 mg/dL Sodium Level 136 mmol/L 145 mmol/L Potassium Level 3.7 mmol/L 3.6 mmol/L Chloride Level 103.0 mmol/L 109.0 mmol/L Carbon Dioxide Level 22.7 mmol/L 26.1 mmol/L Anion Gap 14.0 13.5 Blood Urea Nitrogen 17 mg/dL 20 mg/dL Creatinine 1.09 mg/dL 1.04 mg/dL Estimated GFR () 57.9 61.1 Est GFR (CKD-EPI)(Non-Afr [place]) 47.8 50.5 BUN/Creatinine Ratio 15.0 19.0 Glucose Level 154 mg/dL 108 mg/dL Calcium Level 8.9 mg/dL 8.6 mg/dL Phosphorus Level 3.3 mg/dL 2.7 mg/dL Magnesium Level 1.8 mg/dL 1.8 mg/dL Ferritin 101 ng/mL Total Bilirubin 0.3 mg/dL 0.2 mg/dL Aspartate Amino Transf (AST/SGOT) 36 U/L 27 U/L Alanine Aminotransferase (ALT/SGPT) 32 U/L 25 U/L Alkaline Phosphatase 97 U/L 94 U/L Lactate Dehydrogenase 209 U/L C-Reactive Protein 8.47 mg/dL Pro-B-Type Natriuretic Peptide 103 pg/mL 150 pg/mL Total Protein 7.6 g/dL 6.6 g/dL Albumin 3.2 g/dL 3.0 g/dL Globulin 4.4 3.6 Albumin/Globulin Ratio 0.727 0.833 Triglycerides Level 61 mg/dL Cholesterol Level 93 mg/dL LDL Cholesterol, Calculated 32.8 VLDL Cholesterol, Calculated 12.2 HDL Cholesterol 48 mg/dL Cholesterol Ratio (LDL/HDL) 0.6 Cholesterol/HDL Ratio [id number] Vitamin B12 Level 1018 pg/mL Procalcitonin < 0.05 ng/mL Thyroid Stimulating Hormone (TSH) 0.934 mIU/mL Current Medications Medications (Trade) Dose Ordered Sig/Khoi PRN Reason Start Time Stop Time Status Last Admin Acetaminophen (Tylenol) 1,000 mg Q6H PRN pain or fever 01/08/20 01:00 02/07/20 00:59 Albuterol/ Ipratropium (Combivent Respimat 20-100 Mcg) 1 inh RTQ4 01/08/20 05:00 02/07/20 04:59 01/09/20 17:00 Amlodipine Besylate (Norvasc) 5 mg DAILY 01/08/20 09:00 02/07/20 08:59 01/09/20 08:41 Ascorbic Acid (Vitamin C) 500 mg DAILY 01/08/20 09:00 02/07/20 08:59 01/09/20 08:41 Aspirin (Aspirin Ec) 81 mg DAILY 01/08/20 09:00 02/07/20 08:59 01/09/20 08:41 Atorvastatin Calcium (Lipitor) 40 mg HS 01/09/20 21:00 02/07/20 20:59 Azithromycin 500 mg/Sodium Chloride 250 ml @ 175 mls/hr Q24HRS 01/08/20 01:00 02/07/20 00:59 01/09/20 00:30 Ceftriaxone Sodium 1000 mg/ Sodium Chloride 100 ml @ 100 mls/hr Q24HRS 01/08/20 01:00 02/07/20 00:59 01/09/20 00:30 Clopidogrel Bisulfate (Plavix) 75 mg DAILY 01/08/20 09:00 02/07/20 08:59 01/09/20 08:41 Guaifenesin (Mucinex) 600 mg BID 01/08/20 09:00 02/07/20 08:59 01/09/20 08:41 Heparin Sodium (Porcine) (Heparin) 5,000 unit Q8HR 01/08/20 06:00 02/07/20 05:59 01/09/20 13:48 Lactobacillus Acidophilus (Bacid) 1 each TIDM 01/08/20 08:00 02/07/20 07:59 01/09/20 17:46 Losartan Potassium (Cozaar) 50 mg DAILY 01/08/20 09:00 02/07/20 08:59 01/09/20 08:42 Morphine Sulfate (Morphine Sulfate) 2 mg Q4H PRN PAIN SEVER 01/08/20 01:00 02/07/20 00:59 Ondansetron HCl (Zofran) 4 mg Q4H PRN NAUSEA / VOMITING 01/08/20 01:00 02/07/20 00:59 Pantoprazole Sodium (Protonix) 40 mg DAILY 01/08/20 09:00 02/07/20 08:59 01/09/20 08:41 Remdesivir (Eua) 100 mg/Sodium Chloride 250 ml @ 250 mls/hr DAILY 01/09/20 09:00 02/08/20 08:59 01/09/20 09:55 Sodium Chloride 1,000 ml @ 75 mls/hr [id number] 01/08/20 01:30 02/07/20 01:29 01/09/20 17:46 Zinc Sulfate (Zinc Sulfate) 220 mg DAILY 01/08/20 09:00 02/07/20 08:59 01/09/20 08:41 Sepsis Infection Criteria Pres: None LEVEL 1 SEPSIS INFECTION CRITE: ABX Therapy, Flu-Pneumonia, Urinary Tract Infection LEVEL 2-SIRS (LIST ALL THAT AP: None/Not assessed Cardiovascular Evidence: Not Assessed or None Hematologic Evidence: None/Not assessed Hepatic Evidence: None/Not assessed Metabolic Evidence: None/Not assessed Neurological Evidence: None/Not assessed Respiratory Evidence: Need for O2 to keep>90%, O2 SAT<90room air Renal Evidence: None/Not assessed O2 Sat by Pulse Oximetry: 95 Oxygen Flow Rate: 1.50 Plan Problems: (1) Troponin level elevated Status: Acute ICD Code: R79.89 - Other specified abnormal findings of blood chemistry SNOMED: 553618650, [id number], 433642160 (2) Acute and chronic respiratory failure Status: Chronic ICD Code: J96.20 - Acute and chronic respiratory failure, unspecified whether with hypoxia or hypercapnia SNOMED: 26747053 (3) COVID-19 Status: Acute ICD Code: U07.1 - COVID-19 SNOMED: 098327121 (4) COPD exacerbation ICD Code: J44.1 - Chronic obstructive pulmonary disease with (acute) exacerbation SNOMED: 267915535 (5) PNA (pneumonia) ICD Code: J18.9 - Pneumonia, unspecified organism SNOMED: 591858627 Discharge Disposition: Stable RENNY ARTEAGA MD Jan 14, 2020 10:29
== END 2020-01-13 13:50 | disposition home or self-care (01) | DRG 177 ==
LOC: ER 16:05 → ICU 19:20
PROVIDERS: ADMIT Family Medicine; ATTEND Student in an Organized Health Care Education/Training Program
PROC: XW033E5 Introduction of Remdesivir Anti-infective into Peripheral Vein, Percutaneous Approach, New Technology Group 5 (ICD-10-PCS; principal; 2020-01-11)
DX: U07.1 COVID-19 (principal); J12.89 Other viral pneumonia; J96.21 Acute and chronic respiratory failure with hypoxia; J44.0 Chronic obstructive pulmonary disease with (acute) lower respiratory infection; J44.1 Chronic obstructive pulmonary disease with (acute) exacerbation; N39.0 Urinary tract infection, site not specified; G93.40 Encephalopathy, unspecified; Z20.828 Contact with and (suspected) exposure to other viral communicable diseases; I25.10 Atherosclerotic heart disease of native coronary artery without angina pectoris; I10 Essential (primary) hypertension; E53.8 Deficiency of other specified B group vitamins; E78.5 Hyperlipidemia, unspecified; E87.6 Hypokalemia; F32.9 Major depressive disorder, single episode, unspecified; E86.9 Volume depletion, unspecified; Z86.73 Personal history of transient ischemic attack (TIA), and cerebral infarction without residual deficits; Z87.891 Personal history of nicotine dependence; Z90.710 Acquired absence of both cervix and uterus; Z79.899 Other long term (current) drug therapy
CPT/HCPCS: 36415; 36600; 70450; 71045; 71275; 80053; 80061; 81000; 82550; 82553; 82607; 82728; 82803; 82948; 83605; 83615; 83735; 83880; 84100; 84145; 84443; 84484; 85025; 85370; 85379; 85610; 85730; 86140; 87040; 87077; 87086; 87186; 87635; 87804; 93005; 94640; 99291; G0378; J0456; J0696; J1100; J1644; J2270; J3490; J7030; J7040; J7050; Q9965; J3480

== ENCOUNTER → 2020-05-29 | Outpatient (CLI) | payer MEDICARE, OTHER ==
[~2020-05-29] MED LIST changes: +PRED20TA PO
[2020-05-29 18:18] LABS: UA COLOR YELLOW (YELLOW)
[2020-05-29 18:19] LABS: APPEARANCE,URINE CLOUDY (CLEAR); BILIRUBIN,URINE NEGATIVE (NEGATIVE)
== END | disposition home or self-care (01) ==
LOC: LAB 17:57
PROVIDERS: ATTEND Specialist
DX: R41.0 Disorientation, unspecified (principal)
CPT/HCPCS: 81000; 87086

== ENCOUNTER → 2021-04-16 | Outpatient (CLI) | payer MEDICARE, OTHER ==
[~2021-04-16] MED LIST changes: -LISI1TAB20 PO; +LISI1TAB41 PO; +MIRT-13 PO; -MIRT15TA4 PO
== END | disposition home or self-care (01) ==
LOC: NPLAB 12:55
PROVIDERS: ATTEND Specialist
DX: R05.9 Cough, unspecified (principal); R11.0 Nausea; R19.7 Diarrhea, unspecified; Z20.822 Contact with and (suspected) exposure to COVID-19
CPT/HCPCS: 87633

== ENCOUNTER 2021-05-29 21:30 | Emergency (ER) | payer MEDICARE, OTHER ==
[~2021-05-29] VITALS: Ht 170.2 cm; Wt 93.9 kg
[2021-05-29 21:30] VITALS: BP 114/55
--- NOTE | 2021-05-29 21:30 | NUR ---
ARRIVAL ARRIVED VIA EMS. ALERT AND ORIENTED X3. HAS SOME CONFUSION ANSWERING QUESTION IN TRIAGE. AMS, DEHYDRATION, FEVER, WEAKNESS SINCE 2AM TODAY. FEVER 103.1 EMS GAVE TYLENOL 1 GRAM IN ROUTE. TEMP NOW 100.4.
--- NOTE | 2021-05-29 22:11 | ER.PDOC ---
General Chief Complaint: Altered Mental Status Stated Complaint: AMS, DEHYDRATION Time seen by MD: 22:09 Source: patient Exam Limitations: no limitations History of Present Illness Initial Comments 86-year-old female presents with fever. Onset 2 days ago. Denies any chest pain shortness of breath. Denies any UTI symptoms. States that she is vaccinated against coronavirus. No vomiting or diarrhea or abdominal pain. No weird rashes. Brought in because she was overall very weak at the point where she was not able to ambulate normally. Allergies: Coded Allergies: No Known Allergies (Unverified , 02/13/19) Home Meds Active Scripts Prednisone (PREDNISONE) 20 Mg Tablet, 20 MG PO DAILY24 for 10 Days, #10 BOTTLE Prov:RENNY ARTEAGA MD 01/13/20 Nystatin (NYSTATIN) 15 Gm Oint...g., 15 GM TP BID, #1 TUBE 1 Refill Prov:EV REYNOSO MD 09/12/19 Amoxicillin (AMOXICILLIN) 500 Mg Capsule, 500 MG PO Q8HR, #21 CAPSULE 0 Refills Prov:EV REYNOSO MD 09/12/19 Aspirin (ASPIRIN EC) 81 Mg Tablet.dr, 81 MG PO DAILY for 30 Days Prov:PINA AVELAR MD 02/15/19 Losartan Potassium (COZAAR) 50 Mg Tablet, 50 MG PO DAILY for 30 Days, TAB Prov:PINA AVELAR MD 02/15/19 Atorvastatin 20MG (LIPITOR 20MG) 20 Mg Tablet, 40 MG PO HS for 30 Days, TAB Prov:PINA AVELAR MD 02/15/19 Clopidogrel Bisulfate (CLOPIDOGREL) 75 Mg Tablet, 75 MG PO DAILY for 30 Days, TAB Prov:PINA AVELAR MD 02/15/19 Pantoprazole Sodium (PROTONIX) 40 Mg Tablet.dr, 1 TAB PO DAILY, #30 TAB 5 Refills Prov:PINA AVELAR MD 02/13/19 Amlodipine Besylate (AMLODIPINE BESYLATE) 5 Mg Tablet, 1 TAB PO DAILY, #30 TAB 5 Refills Prov:PINA AVELAR MD 02/13/19 Ursodiol (MARII) 250 Mg Tablet, 1 TAB PO BID for 30 Days, #60 TAB 0 Refills Prov:PINA AVELAR MD 02/13/19 Paroxetine Hcl (PAROXETINE HCL) 20 Mg Tablet, 1 TAB PO DAILY, #30 TAB 5 Refills Prov:PINA AVELAR MD 02/13/19 Cyanocobalamin (Vitamin B-12) (CYANOCOBALAMIN INJECTION) 1,000 Mcg/1 Ml Vial, 1000 MCG IJ qmonth PRN for vit def for 5 Days, #5 VIAL Prov:PINA AVELAR MD 02/13/19 Past Medical History Medical History: COPD, high cholesterol, hypertension, other Surgical History: hysterectomy Social History Alcohol Use: none Drug Use: none Review of Systems Constitutional: chills, fever, malaise Eyes: no symptoms reported Ears, Nose, Mouth, Throat: no symptoms reported Respiratory: no symptoms reported Cardiovascular: no symptoms reported Gastrointestinal: no symptoms reported Genitourinary: no symptoms reported Musculoskeletal: no symptoms reported Skin: no symptoms reported Psychiatric/Neurological: no symptoms reported Physical Exam General Appearance: alert, no distress HEENT: no apparent trauma Neuro/Psych: oriented x3 Cranial Nerves: nml as tested Cerebellar: nml as tested Peripheral Exam: motor nml Respiratory: no resp distress, breath sounds nml CVS: reg rate & rhythm Abdomen: non-tender Skin: color nml, no rash Results/Orders Results/Orders Orders - DAVY CASTILLO MD Influenza A&B (05/29/21 21:46) Covid19 Antigen Beth Verito (05/29/21 21:46) Cbc With Auto Diff (05/29/21 21:46) Comprehensive Metabolic Panel (05/29/21 21:46) Urinalysis (05/29/21 21:54) Urine Culture (05/29/21 21:54) Blood Culture (05/29/21 21:54) Xr Chest 1v (05/29/21 21:54) Lactic Acid(Ml) (05/29/21 21:54) Troponin I High Sensitivity (05/29/21 21:56) Ekg-Routine (05/29/21 21:56) 0.9 % Sodium Chloride (Ns 1000ml) (05/29/21 23:30) 0.9 % Sodium Chloride (Ns 1000ml) (05/30/21 07:35) Lactic Acid(Ml) (05/29/21 23:56) Ceftriaxone Sodium (Rocephin) (05/30/21 00:49) Vital Signs Date Time Temp Pulse Resp B/P (MAP) Pulse Ox O2 Delivery O2 Flow Rate FiO2 05/29/21 21:30 100.4 70 18 114/55 (74) 93 Room Air 05/29/21 21:30 100.4 70 18 05/29/21 21:30 100.4 70 18 93 Administered Medications Medications (Trade) Dose Ordered Sig/Khoi Route PRN Reason Start Time Stop Time Status Last Admin Dose Admin Sodium Chloride 1,000 ml @ 0 mls/hr Q0M ONCE IV 05/29/21 23:30 05/29/21 23:31 UNV 05/29/21 23:30 1,200 MLS/HR Laboratory Tests Test 05/29/21 00:01 05/29/21 21:48 05/29/21 23:25 Lactic Acid Followup at 2 Hours 1.4 mmol/L (0.5-1.9) White Blood Count 10.6 10^3/uL (4.5-11.0) Red Blood Count 4.83 10^6/uL (4.00-5.20) Hemoglobin 12.4 g/dL (12.0-15.0) Hematocrit 40.8 % (36.0-46.0) Mean Corpuscular Volume 84.5 fL (78-100) Mean Corpuscular Hemoglobin 25.7 pg (26-34) L Mean Corpuscular Hemoglobin Concent 30.4 g/dL (33-36.5) L Red Cell Distribution Width 16.5 % (11.5-14.5) H Platelet Count 386 10^3/uL (150-400) Mean Platelet Volume 9.9 fL (7.8-11.0) Neutrophils (%) (Auto) 83.6 % (41.0-85.0) Lymphocytes (%) (Auto) 8.6 % (24.0-44.0) L Monocytes (%) (Auto) 7.1 % (5.0-12.0) Neutrophils # (Auto) 8.8 10^3/uL (1.8-7.7) H Lymphocytes # (Auto) 0.91 10^3/uL1 (1.0-4.8) L Monocytes # (Auto) 0.8 10^3/uL (0.3-0.8) Absolute Immature Granulocyte (auto 0.03 10^3 u/L (0-2) Absolute Eosinophils (auto) 0.0 10^3/uL (0.0-0.2) Immature Granulocytes % 0.30 % (0.00-0.50) Eosinophils % 0.1 % (0.0-5.0) Basophils % 0.3 % (0.0-0.2) H Basophils # 0.0 10^3/uL (0.0-0.1) Sodium Level 134 mmol/L (132-145) # Potassium Level 3.5 mmol/L (3.6-5.2) L Chloride Level 101.0 mmol/L (96-109) Carbon Dioxide Level 24.7 mmol/L (20.0-32) Anion Gap 11.8 Blood Urea Nitrogen 14 mg/dL (7-18) Creatinine 1.02 mg/dL (0.59-1.40) Estimated GFR () 62.2 (>/=60) Est GFR (CKD-EPI)(Non-Afr [place]) 51.4 (>/=60) BUN/Creatinine Ratio 13.0 Glucose Level 122 mg/dL (70-110) H Lactic Acid Level 3.0 mmol/L (0.5-1.9) *H Calcium Level 9.3 mg/dL (8.4-10.5) Total Bilirubin 0.5 mg/dL (0.2-1.0) Aspartate Amino Transferase (AST) 15 U/L (0-35) Alanine Aminotransferase (ALT) 17 U/L (12-78) Alkaline Phosphatase 134 U/L (50-136) Troponin I High Sensitivity 10 ng/L (0-50) Total Protein 7.4 g/dL (6.4-8.2) Albumin 3.1 g/dL (3.4-5.0) L Globulin 4.3 Albumin/Globulin Ratio 0.720 Influenza Type A Antigen NEGATIVE (NEG) Influenza Type B Antigen NEGATIVE (NEG) SARS-CoV-2 Antigen (Rapid) NEGATIVE (NEGATIVE) Urine Collection Type CCMS Urine Color YELLOW Urine Appearance TURBID Urine Bilirubin NEGATIVE (NEGATIVE) Urine Ketones NEGATIVE (NEGATIVE) Urine Specific [place] 1.015 (1.005-1.030) Urine pH 6.5 (4.5-8.0) Urine Protein NEGATIVE (NEGATIVE) Urine Urobilinogen 1.0 E.U./dL (0.2) Urine Nitrate NEGATIVE (NEGATIVE) Urine Leukocyte Esterase TRACE (NEGATIVE) H Urine Glucose (Auto)(UA) NEGATIVE (NEGATIVE) Urine Blood NEGATIVE (NEGATIVE) Urine WBC 5-10 WBC/HPF (0-2) H Urine Squamous Epithelial Cells MODERATE (<=FEW) Urine Bacteria MANY (NONE SEEN) H Progress Progress I spoke with the patient and her family member. Her lactic acid is improved and she feels significantly better. Possible urine infection however we are still waiting on the urine culture. Blood culture is also pending. Daughter feels comfortable taking the mother home at this time. I offered patient to stay however she feels okay to go home at this time. No leukocytosis and her vital signs are stable. She will follow up with her PCP within 48 hours for reevaluation. ER DEPART Departure Time of Disposition: 01:02 Disposition: 01 HOME / SELF CARE / HOMELESS Impression: Primary Impression: Urinary tract infection Condition: Stable Referrals: TUCKER AN MD (PCP) PRIMARY CARE PROVIDER Duration or Time Spent with Pa: 20 DAVY CASTILLO MD May 29, 2021 22:11
[2021-05-29 22:12] LABS: BASOPHIL % 0.3 % (0.0-0.2); EOSINOPHIL % 0.1 % (0.0-5.0); LYMPHOCYTES # 0.91 10^3/uL1 (1.0-4.8); LYMPHOCYTES % 8.6 % (24.0-44.0); MEAN CORP HGB 25.7 pg (26-34); MONOCYTES # 0.8 10^3/uL (0.3-0.8); MONOCYTES % 7.1 % (5.0-12.0); NEUTROPHIL # 8.8 10^3/uL (1.8-7.7); NEUTROPHILS % 83.6 % (41.0-85.0); PLATELET COUNT 386 10^3/uL (150-400); RED CELL DISTRIBUTION WIDTH 16.5 % (11.5-14.5)
--- NOTE | 2021-05-29 22:19 | DIREP ---
PROCEDURE:CHEST 1 VIEW COMPARISON:[facility], CR, XRAY CHEST SINGLE VW, 01/07/2020, 04:35 PM. INDICATIONS:fever FINDINGS: LUNGS/PLEURA:No significant pulmonary parenchymal abnormalities. No effusions. VASCULATURE:Normal. Unremarkable pulmonary vasculature. CARDIAC:Normal. No cardiac silhouette abnormality or cardiomegaly. MEDIASTINUM:Calcified aortic arch. BONES:Arthritic changes left shoulder. OTHER:Dorsal column stimulator leads in the thoracic spinal canal. CONCLUSION:No acute cardiopulmonary abnormalities. No change from previous study. Dictated by: Santosh Hanson M.D. on 05/29/2021 at 10:12 PM
[2021-05-29 22:27] LABS: CARBON DIOXIDE 24.7 mmol/L (20.0-32)
--- NOTE | 2021-05-29 22:31 | PCM.EKG ---
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
[2021-05-29] MEDS ORDERED: NS 1000ML 1,000 ML IV ONE (23:30)
[2021-05-29] MEDS ORDERED: NS 1000ML 1,000 ML ONE (23:30)
[2021-05-29 23:35] LABS: BILIRUBIN,URINE NEGATIVE (NEGATIVE)
[2021-05-30] MEDS ORDERED: ROCEPHIN 1,000 MG in NS 100ML 100 ML IV STA (00:49)
[2021-05-30] MEDS ORDERED: NS 100ML 100 ML IV ONE (00:56)
[2021-05-30] MEDS ORDERED: ROCEPHIN ONE (00:57)
[2021-05-30 01:18] VITALS: BP 117/52
[2021-05-30] MEDS ORDERED: NS 1000ML 1,000 ML IV ONE (07:35)
== END 2021-05-30 01:20 | disposition home or self-care (01) ==
LOC: EDBD 21:30 → ER 21:30
DX: N39.0 Urinary tract infection, site not specified (principal); I10 Essential (primary) hypertension; J44.9 Chronic obstructive pulmonary disease, unspecified; E78.00 Pure hypercholesterolemia, unspecified; Z20.822 Contact with and (suspected) exposure to COVID-19; Z79.52 Long term (current) use of systemic steroids; Z79.82 Long term (current) use of aspirin; Z79.899 Other long term (current) drug therapy; Z90.710 Acquired absence of both cervix and uterus
CPT/HCPCS: 36415; 71045; 80053; 81001; 83605 ×2; 84484; 85025; 87040 ×2; 87077; 87086; 87186; 87426; 87804 ×2; 93005; 96361; 96365; 99285; J0696 ×2; J7030

== ENCOUNTER 2021-07-17 17:02 | Inpatient (IN) | payer MEDICARE, OTHER ==
[~2021-07-17] VITALS: Ht 172.7 cm; Wt 87.3 kg
[2021-07-17 17:10] VITALS: BP 126/55
--- NOTE | 2021-07-17 17:10 | NUR ---
ARRIVAL PATIENT ARRIVED TO ED4 [facility]IA [facility] BY [facility], C/O LEFT SIDED UPPER EXTREMITY WEAKNESS SINCE APPROX 1600 TODAY, CALLED FAMILY AND EMS WAS DISPATCHED TO RESIDENCE IN [place], EMS FOUND PATIENT WITH LEFT UPPER EXTREMITY WEAKNESS AND WHEN IN ROUTE PATIENT STATED SHE STARTED HAVING FEELING BACK IN EXTREMITY, PATIENT DOES HAVE A HISTORY OF TIA'S IN THE PAST, EMS INITIATED A 20G TO THE LEFT AC SALINE LOCKED, GLUCOSE 180, BROUGHT TO THE ED FOR EVAL, VITAL SIGNS OBTAINED AND DOCTOR CECE IN THE ROOM AT THIS TIME. PATIENT REMAINS AWAKE ALERT AND ORIENTED WITH FAMILY AT BEDSIDE.
--- NOTE | 2021-07-17 17:15 | NUR ---
CODE STROKE CALLED CODE STROKE
--- NOTE | 2021-07-17 17:16 | NUR ---
CAT SCAN PATIENT TO CAT SCAN
[2021-07-17 17:22] LABS: BASOPHIL # 0.1 10^3/uL (0.0-0.1); BASOPHIL % 0.9 % (0.0-0.2); EOSINOPHIL # 0.1 10^3/uL (0.0-0.2); LYMPHOCYTES # 1.84 10^3/uL1 (1.0-4.8); LYMPHOCYTES % 26.6 % (24.0-44.0); MEAN CORP HGB 25.8 pg (26-34); MONOCYTES # 0.9 10^3/uL (0.3-0.8); NEUTROPHILS % 58.4 % (41.0-85.0); PLATELET COUNT 334 10^3/uL (150-400); RED CELL DISTRIBUTION WIDTH 17.4 % (11.5-14.5)
--- NOTE | 2021-07-17 17:22 | NUR ---
CAT SCAN PT BACK FROM CAT SCAN AT THIS TIME.
--- NOTE | 2021-07-17 17:22 | NUR ---
TELE STROKE ON PHONE WITH TELE STROKE AT THIS TIME.
--- NOTE | 2021-07-17 17:29 | ER.PDOC ---
General Chief Complaint: Stroke Symptoms Stated Complaint: LEFT SIDE WEAKNESS Time seen by MD: 17:10 Source: patient Exam Limitations: no limitations History of Present Illness Initial Comments Left upper extremity weakness that started about one and half hours ago. No speech or swallowing difficulty. No lower extremity weakness. Timing/Duration: 1-3 hours Severity: mild New Weakness: LUE Usually: orientedx3 Allergies: Coded Allergies: No Known Allergies (Unverified , 02/13/19) Home Meds Active Scripts Aspirin (ASPIRIN EC) 81 Mg Tablet., 81 MG PO DAILY for 30 Days Prov:PINA AVELAR MD 02/15/19 Losartan Potassium (COZAAR) 50 Mg Tablet, 50 MG PO DAILY for 30 Days, TAB Prov:PINA AVELAR MD 02/15/19 Pantoprazole Sodium (PROTONIX) 40 Mg Tablet., 1 TAB PO DAILY, #30 TAB 5 Refills Prov:PINA AVELAR MD 02/13/19 Amlodipine Besylate (AMLODIPINE BESYLATE) 5 Mg Tablet, 1 TAB PO DAILY, #30 TAB 5 Refills Prov:PINA AVELAR MD 02/13/19 Ursodiol (MARII) 250 Mg Tablet, 1 TAB PO BID for 30 Days, #60 TAB 0 Refills Prov:PINA AVELAR MD 02/13/19 Paroxetine Hcl (PAROXETINE HCL) 20 Mg Tablet, 1 TAB PO DAILY, #30 TAB 5 Refills Prov:PINA AVELAR MD 02/13/19 Cyanocobalamin (Vitamin B-12) (CYANOCOBALAMIN INJECTION) 1,000 Mcg/1 Ml Vial, 1000 MCG IJ qmonth PRN for vit def for 5 Days, #5 VIAL Prov:PINA AVELAR MD 02/13/19 Reported Medications Allopurinol (ALLOPURINOL) 100 Mg Tablet, 1 TAB PO DAILY, #90 TAB 1 Refill 07/17/21 Discontinued Scripts Prednisone (PREDNISONE) 20 Mg Tablet, 20 MG PO DAILY24 for 10 Days, #10 BOTTLE Prov:RENNY ARTEAGA MD 01/13/20 Nystatin (NYSTATIN) 15 Gm Oint...g., 15 GM TP BID, #1 TUBE 1 Refill Prov:EV REYNOSO MD 09/12/19 Amoxicillin (AMOXICILLIN) 500 Mg Capsule, 500 MG PO Q8HR, #21 CAPSULE 0 Refills Prov:EV REYNOSO MD 09/12/19 Atorvastatin 20MG (LIPITOR 20MG) 20 Mg Tablet, 40 MG PO HS for 30 Days, TAB Prov:PINA AVELAR MD 02/15/19 Clopidogrel Bisulfate (CLOPIDOGREL) 75 Mg Tablet, 75 MG PO DAILY for 30 Days, TAB Prov:PINA AVELAR MD 02/15/19 Past Medical History Medical History: CVA/TIA/stroke, COPD, high cholesterol, hypertension, other Surgical History: cholecystectomy, tonsillectomy Family History Significant Family History: no pertinent family hx Social History Smoking: non-smoker Alcohol Use: none Drug Use: none Review of Systems Constitutional: no symptoms reported Respiratory: no symptoms reported Cardiovascular: no symptoms reported Gastrointestinal: no symptoms reported Musculoskeletal: no symptoms reported Psychiatric/Neurological: see HPI All Other Systems: Reviewed and Negative Physical Exam General Appearance: alert, no distress HEENT: no apparent trauma, EOM's intact, no nystagmus, PERRL, ENT inspection nml, pharynx nml, airway intact, oral exam nml Neuro/Psych: oriented x3, nml speech/cognition, nml mood/affect Cranial Nerves: nml as tested Peripheral Exam: weakness (mild LUE) Neck: supple, non-tender, no carotid bruit Respiratory: no resp distress, breath sounds nml CVS: reg rate & rhythm, heart sounds nml Abdomen: non-tender, no organomegaly, no distention Skin: color nml, no rash, warm/dry Extremities: non-tender, nml ROM, no pedal edema Comments INH scale is 2 Results/Orders Results/Orders Orders - VIVIENNE ZHAO MD Cbc With Auto Diff (07/17/21 17:20) Creatine Kinase (07/17/21 17:20) PT (07/17/21 17:20) Xr Chest 1v (07/17/21 17:22) Partial Thromboplastin Time. (07/17/21 17:20) Ekg-Routine (07/17/21 17:20) Ct Head Wo Contrast (07/17/21 17:22) Troponin I High Sensitivity (07/17/21 17:20) Basic Metabolic Panel (07/17/21 17:42) Cta Head (07/17/21 17:42) Cta Neck (07/17/21 17:42) Covid19 Antigen Beth Verito (07/17/21 17:44) Urinalysis (07/17/21 18:31) Aspirin (Aspirin) (07/17/21 19:18) Clopidogrel Bisulfate (Plavix) (07/17/21 19:18) Vital Signs Date Time Temp Pulse Resp B/P (MAP) Pulse Ox O2 Delivery O2 Flow Rate FiO2 07/17/21 18:20 98.2 66 18 122/52 (75) 93 Room Air 07/17/21 17:10 98.2 60 18 93 07/17/21 17:10 98.2 60 18 07/17/21 17:10 98.2 60 18 126/55 (78) 93 Room Air Laboratory Tests Test 07/17/21 17:10 07/17/21 17:42 07/17/21 17:44 07/17/21 18:31 White Blood Count 6.9 10^3/uL (4.5-11.0) Red Blood Count 4.85 10^6/uL (4.00-5.20) Hemoglobin 12.5 g/dL (12.0-15.0) Hematocrit 41.8 % (36.0-46.0) Mean Corpuscular Volume 86.2 fL (78-100) Mean Corpuscular Hemoglobin 25.8 pg (26-34) L Mean Corpuscular Hemoglobin Concent 29.9 g/dL (33-36.5) L Red Cell Distribution Width 17.4 % (11.5-14.5) H Platelet Count 334 10^3/uL (150-400) Mean Platelet Volume 10.1 fL (7.8-11.0) Neutrophils (%) (Auto) 58.4 % (41.0-85.0) Lymphocytes (%) (Auto) 26.6 % (24.0-44.0) Monocytes (%) (Auto) 13.0 % (5.0-12.0) H Neutrophils # (Auto) 4.0 10^3/uL (1.8-7.7) Lymphocytes # (Auto) 1.84 10^3/uL1 (1.0-4.8) Monocytes # (Auto) 0.9 10^3/uL (0.3-0.8) H Absolute Immature Granulocyte (auto 0.01 10^3 u/L (0-2) Absolute Eosinophils (auto) 0.1 10^3/uL (0.0-0.2) Immature Granulocytes % 0.10 % (0.00-0.50) Eosinophils % 1.0 % (0.0-5.0) Basophils % 0.9 % (0.0-0.2) H Basophils # 0.1 10^3/uL (0.0-0.1) Prothrombin Time 10.1 SEC (9.1-11.5) Prothrombin Time INR (Non-Therap) 1.0 Activated Partial Thromboplast Time 24.3 SEC (22.5-33.1) Total Creatine Kinase 52 U/L (26-192) Troponin I High Sensitivity 20 ng/L (0-50) Sodium Level 141 mmol/L (132-145) Potassium Level 3.3 mmol/L (3.6-5.2) L Chloride Level 104.0 mmol/L (96-109) Carbon Dioxide Level 25.1 mmol/L (20.0-32) Glucose Level 152 mg/dL (70-110) H Blood Urea Nitrogen 25 mg/dL (7-18) H Creatinine 1.12 mg/dL (0.59-1.40) Calcium Level 9.1 mg/dL (8.4-10.5) Anion Gap 15.2 Estimated GFR () 55.8 (>/=60) Est GFR (CKD-EPI)(Non-Afr [place]) 46.1 (>/=60) BUN/Creatinine Ratio 22.0 SARS-CoV-2 Antigen (Rapid) NEGATIVE (NEGATIVE) Urine Collection Type UNKNOWN Urine Color YELLOW Urine Appearance CLEAR Urine Bilirubin NEGATIVE (NEGATIVE) Urine Ketones NEGATIVE (NEGATIVE) Urine Specific [place] 1.015 (1.005-1.030) Urine pH 5.5 (4.5-8.0) Urine Protein NEGATIVE (NEGATIVE) Urine Urobilinogen 1.0 E.U./dL (0.2) Urine Nitrate NEGATIVE (NEGATIVE) Urine Leukocyte Esterase NEGATIVE (NEGATIVE) Urine Glucose (Auto)(UA) NEGATIVE (NEGATIVE) Urine Blood NEGATIVE (NEGATIVE) Progress Progress CTA head/neck: Atherosclerotic changes without aneurysmal dilation or significant flow-limiting stenosis noted. No acute abnormality appreciated. Head shows no acute intracranial abnormality. Chest x-ray is normal. Dr. Liane Dickinson with tele-stroke evaluated the patient on camera. He told me that stroke scale is way low and so patient is not a candidate for TPA. He told me to admit patient here for further stroke work-up including echo and MRI of the brain. Patient received aspirin and Plavix. EKG/XRAY/CT/US EKG: NSR EKG Comments: HR 58, normal P axis ER DEPART Departure Time of Disposition: 19:26 Disposition: ADMITTED INPATIENT Impression: Primary Impression: CVA (cerebral vascular accident) Condition: Stable Referrals: TUCKER AN MD (PCP) PRIMARY CARE PROVIDER Comments Admitted to Dr. Cabello Duration or Time Spent with Pa: 60 min Critical Care Note Total Time (mins): 60 Problem Qualifiers Primary Impression: CVA (cerebral vascular accident) CVA mechanism: unspecified Qualified Codes: I63.9 - Cerebral infarction, unspecified VIVIENNE ZHAO MD Jul 17, 2021 17:29
--- NOTE | 2021-07-17 17:30 | NUR ---
TELE NEUROLOGIST ON PHONE WITH TELE NEUROLOGIST AT THIS TIME.
--- NOTE | 2021-07-17 17:30 | DIREP ---
PROCEDURE:CT HEAD OR BRAIN W/O CONTRAST COMPARISON:[facility], CT, CT HEAD BRAIN W/O CONTRAST, 01/08/2020, 08:30 AM. INDICATIONS:LUE weakness TECHNIQUE:CT images were created without intravenous contrast. FINDINGS: VENTRICLES:There is moderate prominence of the ventricles and cortical sulci consistent with age related involutional changes. CEREBRUM:Moderate foci of diminished attenuation in the supratentorial white matter consistent with moderate leukoaraiosis. CEREBELLUM:Negative. 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 BASAL CISTERNS:Negative. HEMORRHAGE:No MASS LESION:No ACUTE INFARCT:No SKULL:Normal. SINUSES:Normal. OTHER:None CONCLUSION:No acute intracranial process. No significant change Dictated by: Imelda Multani M.D. on 07/17/2021 at 05:27 PM
[2021-07-17] MEDS ORDERED: ALLO100T PO (17:33)
--- NOTE | 2021-07-17 17:34 | NUR ---
DR. ALESSIA YOUNG WAS INSTRUCTED BY DR. FELTON TO HAVE TELE ROBOT TAKEN TO PTS ROOM FOR STROKE ASSESSMENT.
--- NOTE | 2021-07-17 17:34 | PCM.EKG ---
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
--- NOTE | 2021-07-17 17:40 | DIREP ---
PROCEDURE:CHEST 1 VIEW COMPARISON:[facility], CR, XRAY CHEST SINGLE VW, 05/29/2021, 10:00 PM. INDICATIONS:LUE weakness FINDINGS: LUNGS/PLEURA:No confluent pulmonary infiltrate. No effusions. No pneumothorax. VASCULATURE:Unremarkable pulmonary vasculature. CARDIAC:No cardiac silhouette abnormality or cardiomegaly. MEDIASTINUM:No visible mass or adenopathy. BONES:Degenerative changes at the left shoulder. No fracture or visible bony lesion. OTHER:Spinal stimulators. CONCLUSION:No confluent pulmonary infiltrate. Dictated by: Mirela Conley MD on 07/17/2021 at 05:38 PM
--- NOTE | 2021-07-17 17:41 | NUR ---
DR. ALESSIA YOUNG ON PHONE WITH AT THIS TIME. INSTRUCTED TO ORDER CTA OF PT D/T INABILITY TO OBTAIN SIGNAL ON THE TELE ROBOT FOR ASSESSMENT.
[2021-07-17 17:52] LABS: CARBON DIOXIDE 25.1 mmol/L (20.0-32)
--- NOTE | 2021-07-17 18:08 | NUR ---
COVID NEGATIVE, EDP NOTIFIED.
--- NOTE | 2021-07-17 18:11 | NUR ---
UPDATE NEUROLOGIST USED TELESTROKE TO EVALUATE PATIENT, NEUROLOGIST FEELS LIKE PATIENT DOES NOT NEED TPA AT THIS TIME, DOES SUGGEST PATIENT BE ADMITTED AND WATCHED CLOSELY, ALSO SUGGEST PATIENT HAS CTA OF HEAD AND NECK. DOCTOR CECE AT BEDSIDE AND PRESENT FOR NEUROLOGIST RECOMMENDATIONS.
[2021-07-17 18:20] VITALS: BP 122/52
--- NOTE | 2021-07-17 18:21 | NUR ---
CAT SCAN PATIENT TO CAT SCAN WITH AUGUSTUS FROM RADIOLOGY FOR CTA OF HEAD AND NECK
[2021-07-17 18:38] LABS: BILIRUBIN,URINE NEGATIVE (NEGATIVE)
--- NOTE | 2021-07-17 19:10 | DIREP ---
PROCEDURE:CTA HEAD NECK COMPARISON:None. INDICATIONS:LUE weakness TECHNIQUE:After obtaining the patient's consent, CTA images of the head and neck were obtained with non-ionic contrast, including multi-planar/3-D imaging to optimize visualization of vascular anatomy. FINDINGS: NECK CTA: AORTIC ARCH:Normal configuration. RIGHT CAROTID SYSTEM:Atherosclerotic changes. Approximate 40% luminal narrowing at the carotid bulb. No significant stenosis otherwise noted. LEFT CAROTID SYSTEM:Atherosclerotic changes. No significant stenosis noted. VERTEBRAL ARTERIES: Atherosclerotic changes. No significant stenosis noted. NECK TISSUES:Unremarkable. LUNGS:Unremarkable. MEDIASTINUM:Unremarkable. BONE:Cervical spine degenerative changes. HEAD CTA: INTERNAL CAROTIDS:Atherosclerotic changes. No flow-limiting stenosis or aneurysmal dilation. ANTERIOR CEREBRALS:Unremarkable. MIDDLE CEREBRALS:Unremarkable. VERTEBRALS/BASILAR:Unremarkable. POSTERIOR CEREBRALS:Unremarkable. PCOMM'S:Present on the right. Not discretely seen on the left. CONCLUSION:1. Atherosclerotic changes without aneurysmal dilation or significant flow-limiting stenosis noted. No acute abnormality appreciated. Dictated by: Dinesh Avendaño M.D. on 07/17/2021 at 07:04 PM
[2021-07-17] MEDS ORDERED: ASPIRIN PO STA (19:18)
[2021-07-17] MEDS ORDERED: PLAVIX PO STA (19:18)
[2021-07-17] MEDS ORDERED: ASPIRIN ONE (19:30)
[2021-07-17] MEDS ORDERED: PLAVIX ONE (19:31)
--- NOTE | 2021-07-17 19:58 | NUR ---
REPORT CALLED TO [facility] NURSE TONI RENTERIA LVN
[2021-07-17] MEDS ORDERED: TYLENOL PO PRN (20:00)
--- NOTE | 2021-07-17 20:04 | NUR ---
ARRIVAL TO MS VIA WHEELCHAIR, RECEIVED REPORT FROM LEX MOLINA NO APPARENT ACUTE DISTRESSED NOTED. PT DENIES PAIN, AMBULATED FROM WHEELCHAIR TO BATHROOM THEN TO HOSPITAL BED. ASSUMED CARE
--- NOTE | 2021-07-17 20:10 | PCM.HP ---
History of Present Illness Reason for Visit: Left-sided weakness and slurred speech History of Present Illness 86-year-old female with history of hypertension, hyperlipidemia, TIAs, among others presented emergency room with left-sided weakness and slurred speech that started few hours prior to arrival. Work-up in the emergency room including CT of the brain, CTA brain and neck no acute finding. ED physician consulted with telemetry neurologist, On further questioning the patient and family patient has been having symptoms for at least few days.patient is not a TPA candidate Since the duration of onset has been there for few days.Patient was given aspirin and Plavix. Patient is being admitted hospital for further management. Past Medical History Cardiac: HTN, Hyperlipidemia CUFF CUTTER: CVA, TIA Past Surgical History: No pertinent hx Past Social History Smoke: No Alcohol: none Travel Hx EBOLA RISK:Travel to/contact w: No Review of Systems Respiratory: Shortness of breath Gastrointestinal: Other Neurological: Change in speech, Other (Left-sided weakness and slurring of speech) Other Review of other 14 systems negative except was mentioned above. Allergies: Coded Allergies: No Known Allergies (Unverified , 02/13/19) Scheduled Allopurinol (Allopurinol), 1 TAB PO DAILY, (Reported) Amlodipine Besylate (Amlodipine Besylate), 1 TAB PO DAILY Aspirin (Aspirin Ec), 81 MG PO DAILY Losartan Potassium (Cozaar), 50 MG PO DAILY Pantoprazole Sodium (Protonix), 1 TAB PO DAILY Paroxetine Hcl (Paroxetine Hcl), 1 TAB PO DAILY Ursodiol (Karen), 1 TAB PO BID Scheduled PRN Cyanocobalamin (Vitamin B-12) (Cyanocobalamin Injection), 1,000 MCG IJ qmonth PRN for vit def Discontinued Medications Amoxicillin (Amoxicillin), 500 MG PO Q8HR Discontinued Reason: Discontinue Atorvastatin 20MG (Lipitor 20MG), 40 MG PO HS Discontinued Reason: Discontinue Clopidogrel Bisulfate (Clopidogrel), 75 MG PO DAILY Discontinued Reason: Discontinue Nystatin (Nystatin), 15 GM TP BID Discontinued Reason: Discontinue Prednisone (Prednisone), 20 MG PO DAILY24 Discontinued Reason: Discontinue VTE VTE Risk Total Score: >5 VTE Risk Score VTE Risk: Score 0-1 = Low Risk (Aggressive mobilization; early ambulation; no VTE prophylaxis required) Score 2: Moderate Risk (Intermittent/Pneumatic Compression Device OR Lovenox/Heparin/Coumadin) Score 3-4: High Risk (Intermittent/Pneumatic Compression Device AND Lovenox/Heparin/Coumadin) Score > or =5: Highest Risk (Intermittent/Pneumatic Compression Device AND Lovenox/Heparin/Coumadin) Antico:Hep/LMWH/Coum/Xarelto: No VTE VTE Present on Admission: No Currently receiving anticoagul: No VTE Risk Total Score: >5 Antico:Hep/LMWH/Coum/Xarelto: No Exam Vital Signs Vital Signs Date Time Temp Pulse Resp B/P (MAP) Pulse Ox O2 Delivery O2 Flow Rate FiO2 07/17/21 18:20 98.2 66 18 122/52 (75) 93 Room Air General Appearance: Alert, Oriented X3 HEENT: Atraumatic, PERRLA Respiratory: Clear to auscultation, Normal air movement Cardiovascular: Regular rate, Normal S1, Normal S2 Abdominal: Normal bowel sounds, Soft, No tenderness Extremities: No clubbing, No cyanosis Skin: No breakdown Neuro: Normal speech (Slurring improving), Other (Motor strength mild drift left upper extremity, otherwise 5/5 all other extremities.) Assessment/Plan Assessment/Plan Assessment/Plan 86-year-old female with history of hypertension, hyperlipidemia, TIAs, among others presented emergency room with left-sided weakness and slurred speech that started few hours prior to arrival. Work-up in the emergency room including CT of the brain, CTA brain and neck no acute finding. ED physician consulted with telemetry neurologist, On further questioning the patient and family patient has been having symptoms for at least few days.patient is not a TPA candidate Since the duration of onset has been there for few days.Patient was given aspirin and Plavix. Patient is being admitted hospital for further management. Plan Admit Frequent neurochecks Telemetry monitoring Aspirin, Plavix as recommended by telemetry neurologist 2D echo MRI of the brain PT/OT/speech eval and treat Statin Review and reconcile home meds DVT prophylaxis appropriate Expect length of stay more than 1 midnight Problems: (1) CVA (cerebral vascular accident) ICD Code: I63.9 - Cerebral infarction, unspecified SNOMED: 796146844 (2) Hypertension ICD Code: I10 - Essential (primary) hypertension SNOMED: 50549045 (3) Hyperlipemia ICD Code: E78.5 - Hyperlipidemia, unspecified SNOMED: 96904513 (4) COPD (chronic obstructive pulmonary disease) ICD Code: J44.9 - Chronic obstructive pulmonary disease, unspecified SNOMED: 06046191 (5) Hypokalemia ICD Code: E87.6 - Hypokalemia SNOMED: 82469294 Problem Qualifiers (1) CVA (cerebral vascular accident): CVA mechanism: unspecified Qualified Codes: I63.9 - Cerebral infarction, unspecified ROB LAYNE MD Jul 17, 2021 20:10
[2021-07-17 20:30] VITALS: BP 159/69
[2021-07-17] MEDS ORDERED: POTASSIUM CHLORIDE PO ONE (20:30)
[2021-07-17] MEDS ORDERED: DUO 0.5-3(2.5) MG/3 ML IH PRN (20:30)
[2021-07-17] MEDS: LIPITOR PO SCH (21:13)
[2021-07-17] MEDS: NS 1000ML 1,000 ML IV SCH (21:13)
[2021-07-17 22:49] VITALS: BP 122/52
[2021-07-18 00:21] VITALS: BP 174/65
--- NOTE | 2021-07-18 02:24 | NUR ---
Assumed care of pt at this time by Lety BURNETT
[2021-07-18 04:29] VITALS: BP 166/64
[2021-07-18 04:39] LABS: BASOPHIL # 0.1 10^3/uL (0.0-0.1); BASOPHIL % 0.6 % (0.0-0.2); EOSINOPHIL # 0.1 10^3/uL (0.0-0.2); EOSINOPHIL % 1.3 % (0.0-5.0); LYMPHOCYTES # 2.58 10^3/uL1 (1.0-4.8); LYMPHOCYTES % 31.6 % (24.0-44.0); MONOCYTES # 0.9 10^3/uL (0.3-0.8); MONOCYTES % 11.5 % (5.0-12.0); NEUTROPHIL # 4.5 10^3/uL (1.8-7.7); PLATELET COUNT 338 10^3/uL (150-400); RED CELL DISTRIBUTION WIDTH 17.2 % (11.5-14.5)
[2021-07-18 04:51] LABS: CARBON DIOXIDE 25.6 mmol/L (20.0-32)
[2021-07-18 09:00] VITALS: BP 145/74
[2021-07-18] MEDS: COZAAR PO SCH (09:46)
[2021-07-18] MEDS: ASPIRIN EC PO SCH (09:46)
[2021-07-18] MEDS: PROTONIX PO SCH (09:47)
[2021-07-18] MEDS: PLAVIX PO SCH (09:47)
--- NOTE | 2021-07-18 10:25 | PCM.ECHO ---
APPROVED REPORT EXAM: Comprehensive 2D, Doppler, and color-flow Echocardiogram. Patient Location: IN-PATIENT Indications CVA/TIA 2D Dimensions LVOT Diameter 2.36 (1.8-2.4cm) LVEF(%) 71.37 (>50%) M-Mode Dimensions RVDd 1.45 (2.1-3.2cm) Left Atrium(MM) 3.85 (2.5-4.0cm) IVSd 1.20 (0.7-1.1cm) Aortic Root 2.65 (2.2-3.7cm) LVDd 5.30 (4.0-5.6cm) Aortic Cusp Exc 1.85 (1.5-2.0cm) PWd 0.75 (0.7-1.1cm) MV EPSS 0.25 (<0.5cm) IVSs 1.50 cm FS (%) 47.25 % LVDs 2.80 (2.0-3.8cm) ESV(Teich) 29.57 ml PWs 1.75 cm LVEF(%) 78.28 (>50%) Volumes Biplane 2D LV Volumes Biplane 2D LA Volumes LVEDv A4C 78.55 mL LA ESV Index LVESv A4C 22.49 mL Aortic Valve AoV Peak Prashant. 1.15 m/s AoV VTI 29.00 cm AO Peak GR. 5.55 mmHg AO Mean GR. 3.35 mmHg LVOT VTI 17.93 cm LVOT Peak Prashant. 0.72 m/s TITI(VTI)/BSA 2.69 cm2/m2 TITI (VTI) 2.69 cm2 Mitral Valve MV E Velocity 0.95m/s MR Peak Gr. 106.00mmHg MV A Velocity 0.70m/s TDI Lateral E' P. V 0.08m/s Medial E' P. V 0.09m/s Pulmonary Valve PV Peak Velocity 0.80m/s PV Peak Grad. 2.65mmHg RVOT VTI 18.61cm Tricuspid Valve TR P. Velocity 2.85m/s RAP ESTIMATE 10.00mmHg TR Peak Gr. 33.06mmHg RVSP 43.06mmHg LEFT VENTRICLE The left ventricle is normal size. The left ventricular systolic function is normal. The left ventricular ejection fraction is within the normal range. There is normal left ventricular wall thickness. There is normal LV segmental wall motion. There is no ventricular septal defect visualized. No left ventricle thrombus noted on this study. LVEF is 65-70%. RIGHT VENTRICLE The right ventricle is normal size. The right ventricular systolic function is normal. There is normal right ventricular wall thickness. ATRIA The left atrium size is normal. The right atrium size is normal. The interatrial septum is intact with no evidence for an atrial septal defect. AORTIC VALVE The aortic valve is normal in structure. There is no aortic valvular stenosis. No aortic regurgitation is present. There is no aortic valvular vegetation. MITRAL VALVE The mitral valve is normal in structure. There is no mitral valve stenosis. Moderate mitral regurgitation. There is no evidence of mitral valve vegetations. TRICUSPID VALVE The tricuspid valve is normal in structure. There is no tricuspid valve stenosis. Moderate to severe tricuspid regurgitation There is no tricuspid valve vegetations. PULMONIC VALVE Pulmonic valve is not well visualized. There is no pulmonic valvular stenosis. There is no pulmonic valvular regurgitation. GREAT VESSELS The aortic root is normal in size. Pulmonary artery is not well visualized. Aortic arch is not well visualized. The IVC is normal in size and collapses >50% with inspiration. PERICARDIUM There is no pericardial effusion. There is no pleural effusion. Other Information Study Quality: Fair <Conclusion> The left ventricular systolic function is normal. LVEF is 65-70%. Moderate mitral regurgitation. Moderate to severe tricuspid regurgitation Electronically signed by : AILYN CHO. 07/18/2021 10:25:20
--- NOTE | 2021-07-18 11:11 | NUR ---
DISCHARGE PLAN - HOME SELF CARE CM VISITED WITH [email or web address] ABOUT DISCHARGE PLANS AND NEEDS. PATIENT CURRENTLY [email or web address] ALONE AND HAS 3-4 WALKERS, [place], [place]. PATIENT REPORTS [email or web address] WITH WALKER. PATIENT HAS SUPPORTIVE FRIENDS, DAUGHTERS, AND GRANDKIDS. PATIENT SEE'S VIOLETTA MCCARTNEY NP FOR PCP. PATIENT EDUCATED ON RESOURCES AVAILABLE AND DENIES NEEDS FOR ANY SERVICES OR DME. PATIENT PLANS TO DISCHARGE HOME TO SELF CARE.
[2021-07-18] MEDS: NS 1000ML 1,000 ML IV SCH (12:13)
--- NOTE | 2021-07-18 12:55 | PRM.PN ---
Subjective Subjective Date: Jul 18, 2021 Time: 09:00 Subjective Speech improving. Still some left upper extremity weakness better than yesterday. PT/OT/speech eval requested. MRI of the brain 2D echo ordered. Hypokalemia resolved. Review of Systems Respiratory: Shortness of breath Gastrointestinal: Other Neurological: Change in speech, Other (Left-sided weakness and slurring of speech) Other Review of other 14 systems negative except was mentioned above. Allergies: Coded Allergies: No Known Allergies (Unverified , 02/13/19) Scheduled Allopurinol (Allopurinol), 1 TAB PO DAILY, (Reported) Amlodipine Besylate (Amlodipine Besylate), 1 TAB PO DAILY Aspirin (Aspirin Ec), 81 MG PO DAILY Losartan Potassium (Cozaar), 50 MG PO DAILY Pantoprazole Sodium (Protonix), 1 TAB PO DAILY Paroxetine Hcl (Paroxetine Hcl), 1 TAB PO DAILY Ursodiol (Karen), 1 TAB PO BID Scheduled PRN Cyanocobalamin (Vitamin B-12) (Cyanocobalamin Injection), 1,000 MCG IJ qmonth PRN for vit def Discontinued Medications Amoxicillin (Amoxicillin), 500 MG PO Q8HR Discontinued Reason: Discontinue Atorvastatin 20MG (Lipitor 20MG), 40 MG PO HS Discontinued Reason: Discontinue Clopidogrel Bisulfate (Clopidogrel), 75 MG PO DAILY Discontinued Reason: Discontinue Nystatin (Nystatin), 15 GM TP BID Discontinued Reason: Discontinue Prednisone (Prednisone), 20 MG PO DAILY24 Discontinued Reason: Discontinue Objective Vitals and I/O Vital Sign - Last 24 Hours 07/17/21 07/17/21 07/17/21 07/17/21 17:10 17:10 17:10 18:20 Temp 98.2 98.2 98.2 98.2 Pulse 60 60 60 66 Resp 18 18 18 18 B/P (MAP) 126/55 (78) 122/52 (75) Pulse Ox 93 93 93 O2 Delivery Room Air Room Air 07/17/21 07/17/21 07/17/21 07/17/21 20:30 21:41 22:49 23:05 Temp 97.9 Pulse 59 66 Resp 18 18 B/P (MAP) 159/69 (99) Pulse Ox 98 O2 Delivery Room Air Room Air Room Air 07/18/21 07/18/21 07/18/21 00:21 04:29 09:46 Temp 97.8 97.9 Pulse 57 56 Resp 18 20 B/P (MAP) 174/65 (101) 166/64 (98) 166/64 Pulse Ox 94 97 O2 Delivery Room Air Room Air General: Alert, Oriented X3 HEENT: Atraumatic, PERRLA Lungs: Clear to auscultation, Normal air movement Heart: Regular rate, Normal S1, Normal S2 Abdomen: Normal bowel sounds, Soft, No tenderness Extremities: No clubbing, No cyanosis Neuro: Normal speech (Slurring improving), Other (Motor strength mild drift left upper extremity, otherwise 5/5 all other extremities.) Psych/Mental Status: Mental status NL All Results(Lab/Rad) Laboratory Tests Test 07/17/21 17:10 07/17/21 17:42 07/17/21 17:44 07/17/21 18:31 White Blood Count 6.9 10^3/uL Red Blood Count 4.85 10^6/uL Hemoglobin 12.5 g/dL Hematocrit 41.8 % Mean Corpuscular Volume 86.2 fL Mean Corpuscular Hemoglobin 25.8 pg Mean Corpuscular Hemoglobin Concent 29.9 g/dL Red Cell Distribution Width 17.4 % Platelet Count 334 10^3/uL Mean Platelet Volume 10.1 fL Neutrophils (%) (Auto) 58.4 % Lymphocytes (%) (Auto) 26.6 % Monocytes (%) (Auto) 13.0 % Neutrophils # (Auto) 4.0 10^3/uL Lymphocytes # (Auto) 1.84 10^3/uL1 Monocytes # (Auto) 0.9 10^3/uL Absolute Immature Granulocyte (auto 0.01 10^3 u/L Absolute Eosinophils (auto) 0.1 10^3/uL Immature Granulocytes % 0.10 % Eosinophils % 1.0 % Basophils % 0.9 % Basophils # 0.1 10^3/uL Prothrombin Time 10.1 SEC Prothrombin Time INR (Non-Therap) 1.0 Activated Partial Thromboplast Time 24.3 SEC Total Creatine Kinase 52 U/L Troponin I High Sensitivity 20 ng/L Sodium Level 141 mmol/L Potassium Level 3.3 mmol/L Chloride Level 104.0 mmol/L Carbon Dioxide Level 25.1 mmol/L Glucose Level 152 mg/dL Blood Urea Nitrogen 25 mg/dL Creatinine 1.12 mg/dL Calcium Level 9.1 mg/dL Anion Gap 15.2 Estimated GFR () 55.8 Est GFR (CKD-EPI)(Non-Afr Bruneian) 46.1 BUN/Creatinine Ratio 22.0 SARS-CoV-2 Antigen (Rapid) NEGATIVE Urine Collection Type UNKNOWN Urine Color YELLOW Urine Appearance CLEAR Urine Bilirubin NEGATIVE Urine Ketones NEGATIVE Urine Specific Arnold 1.015 Urine pH 5.5 Urine Protein NEGATIVE Urine Urobilinogen 1.0 E.U./dL Urine Nitrate NEGATIVE Urine Leukocyte Esterase NEGATIVE Urine Glucose (Auto)(UA) NEGATIVE Urine Blood NEGATIVE Test 07/18/21 04:10 White Blood Count 8.2 10^3/uL Red Blood Count 4.96 10^6/uL Hemoglobin 12.9 g/dL Hematocrit 41.6 % Mean Corpuscular Volume 83.9 fL Mean Corpuscular Hemoglobin 26.0 pg Mean Corpuscular Hemoglobin Concent 31.0 g/dL Red Cell Distribution Width 17.2 % Platelet Count 338 10^3/uL Mean Platelet Volume 9.6 fL Neutrophils (%) (Auto) 55.0 % Lymphocytes (%) (Auto) 31.6 % Monocytes (%) (Auto) 11.5 % Neutrophils # (Auto) 4.5 10^3/uL Lymphocytes # (Auto) 2.58 10^3/uL1 Monocytes # (Auto) 0.9 10^3/uL Absolute Immature Granulocyte (auto 0.02 10^3 u/L Absolute Eosinophils (auto) 0.1 10^3/uL Immature Granulocytes % 0.20 % Eosinophils % 1.3 % Basophils % 0.6 % Basophils # 0.1 10^3/uL Sodium Level 143 mmol/L Potassium Level 3.6 mmol/L Chloride Level 106.0 mmol/L Carbon Dioxide Level 25.6 mmol/L Glucose Level 92 mg/dL Blood Urea Nitrogen 21 mg/dL Creatinine 0.95 mg/dL Calcium Level 9.3 mg/dL Anion Gap 15.0 Estimated GFR () 67.5 Est GFR (CKD-EPI)(Non-Afr Bruneian) 55.8 BUN/Creatinine Ratio 22.0 Hemoglobin A1c 5.8 % Triglycerides Level 69 mg/dL Cholesterol Level 121 mg/dL LDL Cholesterol, Calculated 47.2 VLDL Cholesterol, Calculated 13.8 HDL Cholesterol 60 mg/dL Cholesterol Ratio (LDL/HDL) 0.7 Cholesterol/HDL Ratio [id number] Current Medications Medications (Trade) Dose Ordered Sig/Khoi Route PRN Reason Start Time Stop Time Status Last Admin Dose Admin Aspirin (Aspirin) 325 mg STAT STAT PO 07/17/21 19:18 07/17/21 19:20 DC 07/17/21 19:34 Clopidogrel Bisulfate (Plavix) 75 mg STAT STAT PO 07/17/21 19:18 07/17/21 19:20 DC 07/17/21 19:34 Aspirin (Aspirin) 325 mg STK-MED ONCE .ROUTE 07/17/21 19:30 07/17/21 19:31 DC Clopidogrel Bisulfate (Plavix) 75 mg STK-MED ONCE .ROUTE 07/17/21 19:31 07/17/21 19:31 DC Acetaminophen (Tylenol) 325 mg Q4H PRN PO PAIN 1 - 3 07/17/21 20:00 08/16/21 19:59 Pantoprazole Sodium (Protonix) 40 mg DAILY PO 07/18/21 09:00 08/17/21 08:59 07/18/21 09:47 Aspirin (Aspirin Ec) 325 mg DAILY PO 07/18/21 09:00 08/17/21 08:59 07/18/21 09:46 Clopidogrel Bisulfate (Plavix) 75 mg DAILY PO 07/18/21 09:00 08/17/21 08:59 07/18/21 09:47 Atorvastatin Calcium (Lipitor) 40 mg HS PO 07/17/21 21:00 08/16/21 20:59 07/17/21 21:13 Sodium Chloride 1,000 ml @ 75 mls/hr [id number] IV 07/17/21 20:00 08/16/21 19:59 07/18/21 12:13 Losartan Potassium (Cozaar) 50 mg DAILY PO 07/18/21 09:00 08/17/21 08:59 07/18/21 09:46 Potassium Chloride (Potassium Chloride) 20 meq OT ONCE PO 07/17/21 20:30 07/17/21 20:31 DC 07/17/21 21:13 Albuterol/ Ipratropium (Duo 0.5-3(2.5) Mg/3 ml) 3 ml RTQ4 PRN IH sob 07/17/21 20:30 5/7/22 20:29 Assessment/Plan Assessment/Plan Assessment/Plan 86-year-old female with history of hypertension, hyperlipidemia, TIAs, among others presented emergency room with left-sided weakness and slurred speech that started few hours prior to arrival. Work-up in the emergency room including CT of the brain, CTA brain and neck no acute finding. ED physician consulted with telemetry neurologist, On further questioning the patient and family patient has been having symptoms for at least few days.patient is not a TPA candidate Since the duration of onset has been there for few days.Patient was given aspirin and Plavix. Patient is being admitted hospital for further management. Plan Aspirin, Plavix PT/OT/speech eval and treatment MRI of the brain 2D echo DVT prophylax SCDs Speech improving. Still some left upper extremity weakness better than yesterday. PT/OT/speech eval requested. MRI of the brain ,,2D echo ordered. Hypokalemia resolved. Problems: (1) CVA (cerebral vascular accident) ICD Code: I63.9 - Cerebral infarction, unspecified SNOMED: 179490858 (2) Hypertension ICD Code: I10 - Essential (primary) hypertension SNOMED: 60588528 (3) Hyperlipemia ICD Code: E78.5 - Hyperlipidemia, unspecified SNOMED: 14140078 (4) COPD (chronic obstructive pulmonary disease) ICD Code: J44.9 - Chronic obstructive pulmonary disease, unspecified SNOMED: 39133853 (5) Hypokalemia ICD Code: E87.6 - Hypokalemia SNOMED: 03132563 Problem Qualifiers (1) CVA (cerebral vascular accident): CVA mechanism: unspecified Qualified Codes: I63.9 - Cerebral infarction, unspecified ROB LAYNE MD Jul 18, 2021 12:55
[2021-07-18] MEDS ORDERED: LOVENOX SQ SCH ×2 (13:00→17:00)
[2021-07-18 16:35] VITALS: BP 156/67
[2021-07-18 20:03] VITALS: BP 157/70
[2021-07-18] MEDS: LIPITOR PO SCH (21:03)
[2021-07-19 01:08] VITALS: BP 179/95
[2021-07-19] MEDS: NS 1000ML 1,000 ML IV SCH (02:18)
--- NOTE | 2021-07-19 02:29 | NUR ---
noted patient is forgetful , cant remember that she saw the doctor this AM or that she had gotton her medication . assured the patient both had occurred , visited with daughter she stated that patient is somewhat forgetful but for last few days seems a little more so , stated every time a patient gets a uti's ITS REALLY BAD , INFORMED BOTH DAUGHTER AND PATIENT URINE WAS CLEAR . daughter stated that she does call her twice a day to check on her and make sure she has taken her medications .
[2021-07-19 05:11] VITALS: BP 165/83
[2021-07-19 07:36] VITALS: BP 177/78
[2021-07-19] MEDS: PLAVIX PO SCH (09:04)
[2021-07-19] MEDS ORDERED: ATOR40TA PO (09:04)
[2021-07-19] MEDS: COZAAR PO SCH (09:04)
[2021-07-19] MEDS: PROTONIX PO SCH (09:04)
[2021-07-19] MEDS: ASPIRIN EC PO SCH (09:05)
--- NOTE | 2021-07-19 09:13 | PRM.DC ---
Discharge Summary Date of Discharge: Jul 19, 2021 Time of Request to Discharge: 10:00 Reason for Visit: Left-sided weakness and slurred speech Hospital Course Ms. Anand is a very pleasant 86-year-old female who presented with acute left- sided weakness which was concerning for CVA. The patient was kept overnight after initial CT failed to reveal any areas of ischemia, but plans for MRI were short-circuit it by the patient presence of a nerve stimulator which is not MRI compatible. In the interim, the patient's weakness completely resolved and as a consequence, she is discharged home on secondary prophylaxis for presumed TIA to include the addition of atorvastatin in addition to her prior aspirin. She will follow up with Dr. Schroeder in 1 week. General: Alert, Oriented X3, Cooperative HEENT: PERRLA, EOMI Lungs: Clear to auscultation, Normal air movement Heart: Regular rate, Normal S1, Normal S2 Abdomen: Normal bowel sounds, Soft Extremities: No clubbing, No cyanosis Skin: No breakdown Neuro: Normal gait, Normal speech, Strength at 5/5 X4 ext Psych/Mental Status: Mental status NL, Mood NL Scheduled Allopurinol (Allopurinol), 1 TAB PO DAILY, (Reported) Amlodipine Besylate (Amlodipine Besylate), 1 TAB PO DAILY Aspirin (Aspirin Ec), 81 MG PO DAILY Atorvastatin 40MG (Lipitor 40MG), 40 MG PO daily Losartan Potassium (Cozaar), 50 MG PO DAILY Pantoprazole Sodium (Protonix), 1 TAB PO DAILY Paroxetine Hcl (Paroxetine Hcl), 1 TAB PO DAILY Ursodiol (Karen), 1 TAB PO BID Scheduled PRN Cyanocobalamin (Vitamin B-12) (Cyanocobalamin Injection), 1,000 MCG IJ qmonth PRN for vit def Discontinued Medications Amoxicillin (Amoxicillin), 500 MG PO Q8HR Discontinued Reason: Discontinue Atorvastatin 20MG (Lipitor 20MG), 40 MG PO HS Discontinued Reason: Discontinue Clopidogrel Bisulfate (Clopidogrel), 75 MG PO DAILY Discontinued Reason: Discontinue Nystatin (Nystatin), 15 GM TP BID Discontinued Reason: Discontinue Prednisone (Prednisone), 20 MG PO DAILY24 Discontinued Reason: Discontinue Sepsis Evaluation @ Discharge 07/18/21 23:46 Stroke Discharge Summary Discharge on Anti-Thrombotics: Yes Anti Thrombotic Medications: Aspirin 81mg EC Tab Discharge on Antcoagulation Th: No Discharge on Statins: Yes Statins Medication at Discharg: Atorvastati 40mg Oral Tab Course Sepsis Screening Results: Posi: NEGATIVE Sepsis Qualifier/Stage: NO DEFINITE RISK Duration or Total Time Spent w: 60 min Vitals & review Data Vital Sign - Last 24 Hours 07/18/21 07/18/21 07/18/21 07/18/21 09:30 09:46 16:35 19:30 Temp 97.8 Pulse 60 Resp 18 B/P (MAP) 166/64 156/67 (96) Pulse Ox 94 O2 Delivery Room Air Room Air Room Air 07/18/21 07/19/21 07/19/21 07/19/21 20:03 01:08 05:11 07:36 Temp 97.6 98.1 97.7 98.7 Pulse 63 66 58 60 Resp 16 20 17 17 B/P (MAP) 157/70 (99) 179/95 (123) 165/83 (110) 177/78 (111) Pulse Ox 93 95 92 94 O2 Delivery Room Air Room Air 07/19/21 09:04 B/P (MAP) 177/78 Intake and Output 07/19/21 07:00 Intake Total 1800 ml Output Total 1100 ml Balance 700 ml Laboratory Tests Test 07/17/21 17:10 07/17/21 17:42 07/17/21 17:44 07/17/21 18:31 White Blood Count 6.9 10^3/uL Red Blood Count 4.85 10^6/uL Hemoglobin 12.5 g/dL Hematocrit 41.8 % Mean Corpuscular Volume 86.2 fL Mean Corpuscular Hemoglobin 25.8 pg Mean Corpuscular Hemoglobin Concent 29.9 g/dL Red Cell Distribution Width 17.4 % Platelet Count 334 10^3/uL Mean Platelet Volume 10.1 fL Neutrophils (%) (Auto) 58.4 % Lymphocytes (%) (Auto) 26.6 % Monocytes (%) (Auto) 13.0 % Neutrophils # (Auto) 4.0 10^3/uL Lymphocytes # (Auto) 1.84 10^3/uL1 Monocytes # (Auto) 0.9 10^3/uL Absolute Immature Granulocyte (auto 0.01 10^3 u/L Absolute Eosinophils (auto) 0.1 10^3/uL Immature Granulocytes % 0.10 % Eosinophils % 1.0 % Basophils % 0.9 % Basophils # 0.1 10^3/uL Prothrombin Time 10.1 SEC Prothrombin Time INR (Non-Therap) 1.0 Activated Partial Thromboplast Time 24.3 SEC Total Creatine Kinase 52 U/L Troponin I High Sensitivity 20 ng/L Sodium Level 141 mmol/L Potassium Level 3.3 mmol/L Chloride Level 104.0 mmol/L Carbon Dioxide Level 25.1 mmol/L Glucose Level 152 mg/dL Blood Urea Nitrogen 25 mg/dL Creatinine 1.12 mg/dL Calcium Level 9.1 mg/dL Anion Gap 15.2 Estimated GFR () 55.8 Est GFR (CKD-EPI)(Non-Afr Nigerian) 46.1 BUN/Creatinine Ratio 22.0 SARS-CoV-2 Antigen (Rapid) NEGATIVE Urine Collection Type UNKNOWN Urine Color YELLOW Urine Appearance CLEAR Urine Bilirubin NEGATIVE Urine Ketones NEGATIVE Urine Specific [place] 1.015 Urine pH 5.5 Urine Protein NEGATIVE Urine Urobilinogen 1.0 E.U./dL Urine Nitrate NEGATIVE Urine Leukocyte Esterase NEGATIVE Urine Glucose (Auto)(UA) NEGATIVE Urine Blood NEGATIVE Test 07/18/21 04:10 White Blood Count 8.2 10^3/uL Red Blood Count 4.96 10^6/uL Hemoglobin 12.9 g/dL Hematocrit 41.6 % Mean Corpuscular Volume 83.9 fL Mean Corpuscular Hemoglobin 26.0 pg Mean Corpuscular Hemoglobin Concent 31.0 g/dL Red Cell Distribution Width 17.2 % Platelet Count 338 10^3/uL Mean Platelet Volume 9.6 fL Neutrophils (%) (Auto) 55.0 % Lymphocytes (%) (Auto) 31.6 % Monocytes (%) (Auto) 11.5 % Neutrophils # (Auto) 4.5 10^3/uL Lymphocytes # (Auto) 2.58 10^3/uL1 Monocytes # (Auto) 0.9 10^3/uL Absolute Immature Granulocyte (auto 0.02 10^3 u/L Absolute Eosinophils (auto) 0.1 10^3/uL Immature Granulocytes % 0.20 % Eosinophils % 1.3 % Basophils % 0.6 % Basophils # 0.1 10^3/uL Sodium Level 143 mmol/L Potassium Level 3.6 mmol/L Chloride Level 106.0 mmol/L Carbon Dioxide Level 25.6 mmol/L Glucose Level 92 mg/dL Blood Urea Nitrogen 21 mg/dL Creatinine 0.95 mg/dL Calcium Level 9.3 mg/dL Anion Gap 15.0 Estimated GFR () 67.5 Est GFR (CKD-EPI)(Non-Afr Nigerian) 55.8 BUN/Creatinine Ratio 22.0 Hemoglobin A1c 5.8 % Triglycerides Level 69 mg/dL Cholesterol Level 121 mg/dL LDL Cholesterol, Calculated 47.2 VLDL Cholesterol, Calculated 13.8 HDL Cholesterol 60 mg/dL Cholesterol Ratio (LDL/HDL) 0.7 Cholesterol/HDL Ratio [id number] Current Medications Medications (Trade) Dose Ordered Sig/Khoi PRN Reason Start Time Stop Time Status Last Admin Acetaminophen (Tylenol) 325 mg Q4H PRN PAIN 1 - 3 07/17/21 20:00 08/16/21 19:59 Albuterol/ Ipratropium (Duo 0.5-3(2.5) Mg/3 ml) 3 ml RTQ4 PRN sob 07/17/21 20:30 08/16/21 20:29 Aspirin (Aspirin Ec) 325 mg DAILY 07/18/21 09:00 08/17/21 08:59 07/19/21 09:05 Atorvastatin Calcium (Lipitor) 40 mg HS 07/17/21 21:00 08/16/21 20:59 07/18/21 21:03 Clopidogrel Bisulfate (Plavix) 75 mg DAILY 07/18/21 09:00 08/17/21 08:59 07/19/21 09:04 Enoxaparin Sodium (Lovenox) 40 mg Q24HRS 07/18/21 17:00 08/17/21 16:59 07/18/21 17:45 Losartan Potassium (Cozaar) 50 mg DAILY 07/18/21 09:00 08/17/21 08:59 07/19/21 09:04 Pantoprazole Sodium (Protonix) 40 mg DAILY 07/18/21 09:00 08/17/21 08:59 07/19/21 09:04 Sodium Chloride 1,000 ml @ 75 mls/hr [id number] 07/17/21 20:00 08/16/21 19:59 07/19/21 02:18 Sepsis Infection Criteria Pres: None LEVEL 1 SEPSIS INFECTION CRITE: None/Not assessed LEVEL 2-SIRS (LIST ALL THAT AP: None/Not assessed Cardiovascular Evidence: Not Assessed or None Hematologic Evidence: None/Not assessed Hepatic Evidence: None/Not assessed Metabolic Evidence: None/Not assessed Neurological Evidence: None/Not assessed Respiratory Evidence: None/Not assessed Renal Evidence: None/Not assessed O2 Sat by Pulse Oximetry: 94 RODERICK TERAN MD Jul 19, 2021 09:13
[2021-07-19 11:08] VITALS: BP 159/73
[2021-07-19 11:50] VITALS: BP 159/73
--- NOTE | 2021-07-19 12:45 | NUR ---
DISCHARGE PATIENT IV CATHETER REMOVED, TIP INTACT. TELEMETRY REMOVED. DISCHARGE INSTRUCTIONS GIVEN INCLUDING NEW AND CONTINUED MEDICATIONS, FOLLOW UP APPOINTMENTS, DIET AND ACTIVITY TOLERATED. PATIENT AND DAUGHTER VERBALIZED UNDERSTANDING. PATIENT DENIES FURTHER NEEDS AT THIS TIME. PATIENT ESCORTED OFF UNIT BY ROMAN CONTI
== END 2021-07-19 12:45 | disposition home or self-care (01) | DRG 69 ==
LOC: ER 17:02 → EDBD 17:02 → MS 19:22
PROVIDERS: ADMIT Internal Medicine; ATTEND Internal Medicine
DX: G45.9 Transient cerebral ischemic attack, unspecified (principal); G81.94 Hemiplegia, unspecified affecting left nondominant side; I10 Essential (primary) hypertension; E78.5 Hyperlipidemia, unspecified; R47.81 Slurred speech; J44.9 Chronic obstructive pulmonary disease, unspecified; E87.6 Hypokalemia; G83.24 Monoplegia of upper limb affecting left nondominant side; Z20.822 Contact with and (suspected) exposure to COVID-19; E78.00 Pure hypercholesterolemia, unspecified; Z79.82 Long term (current) use of aspirin; Z90.49 Acquired absence of other specified parts of digestive tract
CPT/HCPCS: 36415; 70450; 70496; 70498; 71045; 80048; 80061; 81003; 82550; 83036; 84484; 85025; 85610; 85730; 87426; 93005; 93306; 97162; 97166; 97530; 99291; G0378; J1650; J7030; Q9965; 97116-GP; 97535-GO

== ENCOUNTER → 2021-09-10 | Day surgery (SDC) | payer MEDICARE, OTHER ==
[2021-09-09 16:41] LABS: BASOPHIL % 0.3 % (0.0-0.2); EOSINOPHIL # 0.2 10^3/uL (0.0-0.2); EOSINOPHIL % 2.2 % (0.0-5.0); LYMPHOCYTES # 2.46 10^3/uL1 (1.0-4.8); LYMPHOCYTES % 25.8 % (24.0-44.0); MONOCYTES # 0.8 10^3/uL (0.3-0.8); MONOCYTES % 8.4 % (5.0-12.0); NEUTROPHILS % 63.1 % (41.0-85.0); PLATELET COUNT 625 10^3/uL (150-400); RED CELL DISTRIBUTION WIDTH 15.5 % (11.5-14.5)
[2021-09-09 16:55] LABS: CARBON DIOXIDE 30.2 mmol/L (20.0-32)
[~2021-09-10] VITALS: Ht 170.2 cm; Wt 83.9 kg
[~2021-09-10] MED LIST changes: +ALLO100T PO; +APRESOLINE ONE; +ATOR40TA PO; +CEPH500C PO; +NS 1000ML 1,000 ML IV SCH; +NS 1000ML 1,000 ML ONE; +RIVA20TA PO; +SUBLIMAZE ONE; +VERSED ONE; +VITA25006 PO; +XYLOCAINE ONE
[2021-09-10 10:36] VITALS: BP 150/84
--- NOTE | 2021-09-10 11:25 | PCM.EKG ---
[facility] Test Date: 2021-09-10 Test Time: 10:24:24 Pat Name: BREE GARZA Department: Room: Gender: F Monologist: : 1935 Requested By: AILYN CHO Order Number: [id number] Reading MD: Measurements Intervals [place] Rate: 70 P: -41 IA: 250 QRS: 63 QRSD: 163 T: 30 QT: 459 QTc: 496 Interpretive Statements Sinus rhythm Prolonged IA interval Right bundle branch block Compared to ECG 07/17/2021 17:31:49 First degree AV block now present Please click the below link to view image of tracing.
[2021-09-10 13:20] VITALS: BP 131/58
[2021-09-10 13:35] VITALS: BP 129/62
[2021-09-10 13:50] VITALS: BP 131/60
--- NOTE | 2021-09-10 16:19 | CCLR ---
DATE OF PROCEDURE: 09/10/2021 DICTATOR NAME: AILYN TAMMIE INDICATIONS: This is an implantation of a Biotronik BioMonitor III insertable quality assurance monitor body. This is an 86-year-old female who was evaluated in the outpatient setting where she presented with a cryptogenic transient ischemic attack with left-sided hemiparesis. She was then set up for implantation of a Biotronik BioMonitor III insertable quality assurance monitor body given her increased risk for cardiac arrhythmia. PROCEDURES PERFORMED: 1. Implantation of a Biotronik BioMonitor III insertable quality assurance monitor body. 2. Hemostasis established using Dermabond and Steri-Strips. DESCRIPTION OF PROCEDURE: The risks, benefits and alternatives of this procedure have been explained to the patient in great detail. The patient wishes to proceed. The patient was brought to the cardiac catheterization lab. After sterile preparation and draping, the left pectoral region was anesthetized using approximately 10 mL of 2% lidocaine. An incision was made at the 3rd-4th intercostal space using the blade. A small pocket was created with the implant to approximately 8 mm under the skin. The FIT OneStep tool was inserted and the BioMonitor III insertable quality assurance monitor body was implanted. Hemostasis was obtained. Steri-Strips and Dermabond were used to close the skin. The patient tolerated the procedure well and there were no complications. IMPRESSION: Successful implantation of the Biotronik BioMonitor III insertable quality assurance monitor body. RECOMMENDATIONS: The patient has been instructed to follow up with me in the clinic in 1-2 weeks. Kadeem TENA D.O. DR: ANDREA TID: [id number] RECEIPT: [id number]
== END | disposition home or self-care (01) ==
LOC: SDC 10:20
PROVIDERS: ATTEND Internal Medicine Interventional Cardiology
DX: I63.9 Cerebral infarction, unspecified (principal); I10 Essential (primary) hypertension; E78.2 Mixed hyperlipidemia; R06.02 Shortness of breath; E78.5 Hyperlipidemia, unspecified; J44.9 Chronic obstructive pulmonary disease, unspecified; E78.00 Pure hypercholesterolemia, unspecified; Z90.710 Acquired absence of both cervix and uterus; Z90.49 Acquired absence of other specified parts of digestive tract; Z98.890 Other specified postprocedural states; Z90.89 Acquired absence of other organs; Z98.41 Cataract extraction status, right eye; Z98.42 Cataract extraction status, left eye; Z82.3 Family history of stroke; Z82.49 Family history of ischemic heart disease and other diseases of the circulatory system; Z87.891 Personal history of nicotine dependence; Z79.899 Other long term (current) drug therapy; Z79.82 Long term (current) use of aspirin; Z79.01 Long term (current) use of anticoagulants
CPT/HCPCS: 33285; 36415; 80053; 85025; 85610; 85730; 93005; C1764; J0360; J2250; J3010; J7030; 99152

== ENCOUNTER → 2021-10-10 | Outpatient (CLI) | payer MEDICARE, OTHER ==
[~2021-10-10] MED LIST changes: -APRESOLINE ONE; -NS 1000ML 1,000 ML IV SCH; -NS 1000ML 1,000 ML ONE; -SUBLIMAZE ONE; -VERSED ONE; -XYLOCAINE ONE
[2021-10-10 17:54] LABS: BASOPHIL # 0.1 10^3/uL (0.0-0.1); BASOPHIL % 0.6 % (0.0-0.2); EOSINOPHIL # 0.3 10^3/uL (0.0-0.2); EOSINOPHIL % 3.8 % (0.0-5.0); LYMPHOCYTES # 2.64 10^3/uL1 (1.0-4.8); LYMPHOCYTES % 31.3 % (24.0-44.0); MEAN CORP HGB 24.9 pg (26-34); MONOCYTES # 0.5 10^3/uL (0.3-0.8); MONOCYTES % 6.3 % (5.0-12.0); NEUTROPHIL # 4.9 10^3/uL (1.8-7.7); PLATELET COUNT 386 10^3/uL (150-400); RED CELL DISTRIBUTION WIDTH 16.7 % (11.5-14.5)
== END | disposition home or self-care (01) ==
LOC: LAB 17:21
PROVIDERS: ATTEND Internal Medicine Gastroenterology
DX: K76.9 Liver disease, unspecified (principal); R93.2 Abnormal findings on diagnostic imaging of liver and biliary tract; K57.32 Diverticulitis of large intestine without perforation or abscess without bleeding
CPT/HCPCS: 36415; 85025

== ENCOUNTER → 2021-10-16 | Outpatient (CLI) | payer MEDICARE, OTHER ==
[2021-10-16 13:07] LABS: CARBON DIOXIDE 28.8 mmol/L (20.0-32)
== END | disposition home or self-care (01) ==
LOC: LAB 12:31
PROVIDERS: ATTEND Internal Medicine Gastroenterology
DX: K76.9 Liver disease, unspecified (principal); R93.2 Abnormal findings on diagnostic imaging of liver and biliary tract
CPT/HCPCS: 36415; 80048

== ENCOUNTER → 2021-10-28 | Outpatient (CLI) | payer MEDICARE, OTHER ==
[~2021-10-28] MED LIST changes: +LEXISCAN IV ONE
--- NOTE | 2021-10-29 15:55 | STRESS ---
DATE OF SERVICE: 10/28/2021 DICTATOR NAME: AILYN CAYETANORodrigo CARDIAC STRESS TEST INDICATION: Chest pain. FINDINGS: Baseline EKG shows sinus bradycardia with right bundle branch block. Stress EKG shows normal sinus rhythm, unchanged from baseline. At the end of recovery, EKG shows normal sinus rhythm, unchanged from baseline. Baseline heart rate is 57 beats per minute and stephen to 61 beats per minute during stress. At the end of recovery, the heart rate was 70 beats per minute. Baseline blood pressure is 143/63 and remained the same during stress. At the end of recovery, the blood pressure was 137/56. Blood pressure and heart rate were appropriate for stress. There were no significant symptoms noted during stress. There were no arrhythmias noted during stress. EKG portion of stress test is negative for myocardial ischemia. Nuclear images were obtained with a rest dose of 11.9 mCi technetium-99 sestamibi, and a stress dose of 35.0 mCi technetium-99 sestamibi. Nuclear images reveal homogeneous tracer distribution across all wall segments as visualized in both rest and stress images, with no evidence of myocardial ischemia or infarction. Apical cleft is visualized as well. Left ventricular ejection fraction is 78%. EDV is 34 mL, ESV 7 mL. The left ventricle is normal in size. Gated motion images show normal wall motion across all segments of the left ventricle. TID is 0.87. There is no evidence of diaphragmatic attenuation artifact. IMPRESSION: 1. Normal myocardial perfusion imaging with no evidence of myocardial ischemia or infarction. 2. Left ventricular ejection fraction of 78%. 3. This is a negative study. Kadeem TENA D.O. DR: JALEN TID: [id number] RECEIPT: [id number]
== END | disposition home or self-care (01) ==
LOC: RAD 08:56
PROVIDERS: ATTEND Internal Medicine Interventional Cardiology
DX: I10 Essential (primary) hypertension (principal); R06.02 Shortness of breath; R07.9 Chest pain, unspecified
CPT/HCPCS: 78452; 93017; J2785; A9500

== ENCOUNTER → 2021-11-03 | Outpatient (CLI) | payer MEDICARE, OTHER ==
[~2021-11-03] MED LIST changes: -LEXISCAN IV ONE
--- NOTE | 2021-11-03 22:04 | PCM.ECHO ---
APPROVED REPORT EXAM: Comprehensive 2D, Doppler, and color-flow Echocardiogram. Patient Location: OUT-PATIENT Indications Dyspnea Hypertension/HDD Palpitations 2D Dimensions LVOT Diameter 2.28 (1.8-2.4cm) LVEF(%) 69.74 (>50%) M-Mode Dimensions RVDd 1.60 (2.1-3.2cm) Left Atrium(MM) 5.10 (2.5-4.0cm) IVSd 1.10 (0.7-1.1cm) Aortic Root 2.70 (2.2-3.7cm) LVDd 5.05 (4.0-5.6cm) Aortic Cusp Exc 1.65 (1.5-2.0cm) PWd 0.80 (0.7-1.1cm) MV EPSS 0.61 (<0.5cm) IVSs 1.65 cm FS (%) 43.55 % LVDs 2.85 (2.0-3.8cm) ESV(Teich) 31.39 ml PWs 1.70 cm LVEF(%) 74.50 (>50%) Volumes Biplane 2D LV Volumes Biplane 2D LA Volumes LVEDv A4C 69.32 mL LA ESV Index LVESv A4C 20.98 mL Aortic Valve AoV Peak Prashant. 1.10 m/s AoV VTI 24.60 cm AO Peak GR. 5.20 mmHg AO Mean GR. 3.20 mmHg LVOT VTI 16.73 cm LVOT Peak Prashant. 0.71 m/s TITI(VTI)/BSA 2.77 cm2/m2 TITI (VTI) 2.77 cm2 Mitral Valve MV E Velocity 0.90m/s MR Peak Gr. 6.15mmHg MV A Velocity 0.55m/s TDI Lateral E' P. V 0.08m/s Medial E' P. V 0.11m/s Pulmonary Valve PV Peak Velocity 0.75m/s PV Peak Grad. 2.45mmHg RVOT VTI 17.58cm Tricuspid Valve TR P. Velocity 1.60m/s RAP ESTIMATE 10.00mmHg TR Peak Gr. 10.77mmHg RVSP 20.77mmHg LEFT VENTRICLE The left ventricle is normal size. The left ventricular systolic function is normal. The left ventricular ejection fraction is within the normal range. There is normal left ventricular wall thickness. There is normal LV segmental wall motion. There is no ventricular septal defect visualized. No left ventricle thrombus noted on this study. LVEF is 60%. RIGHT VENTRICLE The right ventricle is normal size. The right ventricular systolic function is normal. There is normal right ventricular wall thickness. ATRIA The left atrium size is normal. The right atrium size is normal. The interatrial septum is intact with no evidence for an atrial septal defect. AORTIC VALVE The aortic valve is normal in structure. There is no aortic valvular stenosis. Mild to moderate aortic regurgitation. There is no aortic valvular vegetation. MITRAL VALVE The mitral valve is normal in structure. There is no mitral valve stenosis. Mild mitral regurgitation. There is no evidence of mitral valve vegetations. TRICUSPID VALVE The tricuspid valve is normal in structure. There is no tricuspid valve stenosis. Moderate tricuspid regurgitation. There is no tricuspid valve vegetations. PULMONIC VALVE Pulmonic valve is not well visualized. There is no pulmonic valvular stenosis. Mild pulmonic regurgitation. GREAT VESSELS The aortic root is normal in size. Pulmonary artery is not well visualized. Aortic arch is not well visualized. The IVC is normal in size and collapses >50% with inspiration. PERICARDIUM There is no pericardial effusion. There is no pleural effusion. Other Information Study Quality: Fair <Conclusion> The left ventricular systolic function is normal. LVEF is 60%. Mild to moderate aortic regurgitation. Mild mitral regurgitation. Moderate tricuspid regurgitation. Mild pulmonic regurgitation. Electronically signed by : AILYN CHO. 11/03/2021 22:04:15
== END | disposition home or self-care (01) ==
LOC: RAD 12:40
PROVIDERS: ATTEND Internal Medicine Interventional Cardiology
DX: I08.8 Other rheumatic multiple valve diseases (principal); I10 Essential (primary) hypertension; R00.2 Palpitations
CPT/HCPCS: 93306

== ENCOUNTER → 2022-01-12 | Outpatient (CLI) | payer MEDICARE, OTHER ==
[2022-01-12 12:37] LABS: MEAN CORP HGB 25.8 pg (26-34); RED CELL DISTRIBUTION WIDTH 18.8 % (11.5-14.5)
[2022-01-12 12:52] LABS: CARBON DIOXIDE 28.8 mmol/L (20.0-32)
--- NOTE | 2022-01-12 13:44 | DIREP ---
PROCEDURE:CHEST 2 VIEWS COMPARISON:[facility], CR, XRAY CHEST SINGLE VW, 07/17/2021, 05:25 PM. INDICATIONS:SHORTNESS OF BREATH FINDINGS: LUNGS/PLEURA:Diffuse interstitial thickening. No consolidation. VASCULATURE:Normal. Unremarkable pulmonary vasculature. CARDIAC:Normal. No cardiac silhouette abnormality or cardiomegaly. MEDIASTINUM:Calcified plaque in the aorta. Left chest internist medical doctor md. BONES:Spinal stimulator leads project over the mid thoracic spine. Severe left shoulder arthropathy. OTHER:Negative. CONCLUSION:Interstitial thickening in both lungs may be the result of chronic change, pneumonia, edema or atelectasis. Dictated by: Alpesh Webber M.D. on 01/12/2022 at 01:41 PM
== END | disposition home or self-care (01) ==
LOC: LAB 12:11
PROVIDERS: ATTEND Nurse Practitioner Family
DX: J84.89 Other specified interstitial pulmonary diseases (principal); I70.0 Atherosclerosis of aorta; M12.812 Other specific arthropathies, not elsewhere classified, left shoulder; R06.02 Shortness of breath; N30.01 Acute cystitis with hematuria
CPT/HCPCS: 36415; 71046; 80053; 83605; 85027; 87040; 87077; 87086; 87186